=== PATIENT | male | born 1975 | race African-American/Black ===

== ENCOUNTER 2018-04-28 05:13 | Emergency (ER) | payer OTHER ==
[~2018-04-28] VITALS: Ht 170.2 cm; Wt 68.0 kg
[~2018-04-28 05:13] MED LIST: TRAZ-85 PO; UNABLE MC; ZIPR20CA2 PO
--- NOTE | 2018-04-28 05:44 | PHYS DOC ---
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 Patient was brought in by EMS who reports that staff at the assisted care facility where the patient resides due to his history of a traumatic brain injury, pushed the feeding tube back in place in their presence. History is limited from the patient due to his traumatic brain injury. Per EMS report, patient had been seen at earlier this evening also due to pulling out the tube. [] (SURESH SANCHEZ DO) Review of Systems Review of Systems Unable to obtain due to patient's history of traumatic brain injury All other systems were reviewed and found to be within normal limits, except as documented in this note. (SURESH SANCHEZ DO) Current Medications Current Medications Current Medications Medications (Trade) Dose Ordered Sig/Moses Start Time Stop Time Status Last Admin Dose Admin Info (CONTRAST GIVEN -- Rx MONITORING) 1 each PRN DAILY PRN 04/28/18 06:00 04/30/18 05:59 Iohexol (Omnipaque 240 Mg/ml) 20 ml 1X ONCE 04/28/18 06:30 04/28/18 06:31 DC 04/28/18 06:04 20 ML Iohexol (Omnipaque 300 Mg/ml) 50 ml 1X ONCE 04/28/18 08:00 04/28/18 08:01 DC (SACHA TOWNSEND MD) Allergies Allergies Allergies Coded Allergies Type Severity Reaction Last Updated Verified chlorpromazine Allergy Intermediate unknown 03/31/14 Yes divalproex sodium Allergy Intermediate unknown 03/31/14 Yes fluphenazine Allergy Intermediate abd pain 03/31/14 No haloperidol Allergy Intermediate "passout" 03/31/14 No (SACHA TOWNSEND MD) Physical Exam Physical Exam Constitutional: Well developed, well nourished, no acute distress, non-toxic appearance. [] HENT: Normocephalic, atraumatic, bilateral external ears normal, oropharynx moist, no oral exudates, nose normal. [] Eyes: PERRLA, EOMI, conjunctiva normal, no discharge. [] Neck: Normal range of motion, no tenderness, supple, no stridor. [] Cardiovascular:Heart rate regular rhythm, no murmur [] Lungs & Thorax: Bilateral breath sounds clear to auscultation [] Abdomen: Bowel sounds normal, soft, no tenderness, no masses, no pulsatile masses. Feeding tube appears to be in place, no bleeding [] Skin: Warm, dry, no erythema, no rash. [] Back: No tenderness, no CVA tenderness. [] Extremities: No tenderness, no cyanosis, no clubbing, ROM intact, no edema. [] Neurologic: Awake and Alert, normal motor function, normal sensory function, no focal deficits noted. [] Psychologic: Affect normal, judgement unable to assess, mood normal. [] (SURESH SANCHEZ DO) Current Patient Data Vital Signs Vital Signs Date Time Temp Pulse Resp B/P (MAP) Pulse Ox O2 Delivery O2 Flow Rate FiO2 04/28/18 05:30 98.2 83 18 117/79 (92) 97 Room Air 98.2 (SACHA TOWNSEND MD) EKG EKG [] (SURESH SANCHEZ DO) Radiology/Procedures Radiology/Procedures [] (SURESH SANCHEZ DO) Course & Med Decision Making Course & Med Decision Making Pertinent Labs and Imaging studies reviewed. (See chart for details) D course: Patient arrived, was placed in bed, in tolerated exam well. Patient had omni placed through the feeding tube. At the time of this dictation he is awaiting radiologist evaluation of the imaging to ensure feeding tube is in the correct position. Patient care endorsed to the daytime emergency physician at 6 AM.[] (SURESH SANCHEZ DO) Course & Med Decision Making lenaghan: s/o 6 am i eval'd the tube, it was hanging out. i replaced it with a 20fr , easy placement ovearll pt did tolerate with some difficulty. xray confirmed placement. d/c back to snf IMPRESSION: Satisfactory position of the gastrostomy tube extending into the distal aspect of the stomach. Electronically signed by: Jignesh Concepcion MD (04/28/2018 8:11 AM) [facility] DICTATED and SIGNED BY: JIGNESH CONCEPCION MD DATE: 04/28/18 0808 (SACHA TOWNSEND MD) Brian Disclaimer Dragon Disclaimer This electronic medical record was generated, in whole or in part, using a voice recognition dictation system. (SURESH SANCHEZ DO) Departure Departure Referrals: NO PCP (PCP) SURESH SANCHEZ DO Apr 28, 2018 05:44 SACHA TOWNSEND MD Apr 28, 2018 08:32
[2018-04-28] MEDS ORDERED: CONTRAST GIVEN. MC PRN (06:00)
[2018-04-28] MEDS ORDERED: IOHEXOL 240 MG/ML 50ML VIAL. PO ONE (06:30)
--- NOTE | 2018-04-28 07:53 | RAD ---
Portable abdomen, 04/28/2018, 5:37 AM: HISTORY: Check gastrostomy tube placement A supine view of the abdomen was obtained following injection of 50 cc of Omnipaque 240 into a gastrostomy tube as requested. There is a tube overlying the left midabdomen which reportedly represents a gastrostomy tube. There is contrast material in the stomach suggesting that the tip of the tube extends into the stomach. There is more dense contrast within the colon. This most likely represents residual contrast from a previous diagnostic study. Clinical correlation is suggested. The possibility of transcolonic placement of the gastrostomy tube cannot be excluded. CT scanning may be useful for further evaluation, if clinically indicated. Electronically signed by: Jignesh Olmos MD (04/28/2018 7:51 AM) [facility]
[2018-04-28] MEDS ORDERED: IOHEXOL 300 MG/ML 50 ML VIAL. PO ONE (08:00)
--- NOTE | 2018-04-28 08:14 | RAD ---
KUB x2, 04/28/2018, 7:43 AM: HISTORY: Check replaced gastrostomy tube A KUB was obtained prior to and following injection of 50 cc of nonionic contrast into the patient's gastrostomy tube. On the preliminary images there is residual contrast in the colon and small bowel from previous examinations. The current injection demonstrates the distal end of the gastrostomy tube lying within the distal stomach. Contrast extends into the small bowel. No contrast leakage is seen. There is no evidence of obstruction. IMPRESSION: Satisfactory position of the gastrostomy tube extending into the distal aspect of the stomach. Electronically signed by: Jignesh Olmos MD (04/28/2018 8:11 AM) [facility]
[2018-04-28 09:00] VITALS: BP 114/77
== END 2018-04-28 09:16 | disposition home or self-care (01) ==
LOC: ER 05:13
DX: K94.23 Gastrostomy malfunction (principal); F20.9 Schizophrenia, unspecified; Z88.8 Allergy status to other drugs, medicaments and biological substances; Y83.8 Other surgical procedures as the cause of abnormal reaction of the patient, or of later complication, without mention of misadventure at the time of the procedure; Y92.89 Other specified places as the place of occurrence of the external cause
CPT/HCPCS: 43762; 74018; 99284; Q9966

== ENCOUNTER 2019-05-29 14:45 | Emergency (ER) | payer OTHER ==
[~2019-05-29] VITALS: Ht 177.8 cm; Wt 77.0 kg
[~2019-05-29 14:45] MED LIST changes: +TRAZ-118 PO; -TRAZ-85 PO
--- NOTE | 2019-05-29 15:12 | PHYS DOC ---
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 Patient was sent from his facility as he supposedly pulled out his G-tube. G-tube is in place on assessment. Patient is nonverbal so is difficult to assess the patient. Review of Systems Review of Systems Unable to obtain due to patient condition. Allergies Allergies Allergies Coded Allergies Type Severity Reaction Last Updated Verified chlorpromazine Allergy Intermediate unknown 03/31/14 Yes divalproex sodium Allergy Intermediate unknown 03/31/14 Yes fluphenazine Allergy Intermediate abd pain 03/31/14 No haloperidol Allergy Intermediate "passout" 03/31/14 No Physical Exam Physical Exam Constitutional: Well developed, well nourished, no acute distress, non-toxic appearance. [] Abdomen:G-tube in place. Psychologic: Affect normal, judgement normal, mood normal. [] Current Patient Data Vital Signs Vital Signs Date Time Temp Pulse Resp B/P (MAP) Pulse Ox O2 Delivery O2 Flow Rate FiO2 05/29/19 14:45 98.2 20 112/84 (93) 94 Room Air 98.2 EKG EKG [] Radiology/Procedures Radiology/Procedures [] Course & Med Decision Making Course & Med Decision Making Pertinent Labs and Imaging studies reviewed. (See chart for details) We will have nursing evaluate G-tube by trying to use the G-tube if G-tube is not working will replace. Nursing was able to flush tube with no issues. [facility] stated that they had placed a Theodore in place of the G-tube that he pulled out it is working just fine. Will have patient follow-up outpatient to have a new G-tube placed Brian Disclaimer Brian Disclaimer This electronic medical record was generated, in whole or in part, using a voice recognition dictation system. Departure Departure Impression: Primary Impression: Gastrostomy tube in place Disposition: 01 HOME, SELF-CARE Condition: STABLE Referrals: NO PCP (PCP) Patient Instructions: Gastrostomy Tube, Adult Additional Instructions: Thank you for visiting [facility]. We appreciate you trusting us with your care. If any additional problems come up don't hesitate to return to visit us. Please follow up with your primary care provider so they can plan additional care if needed and know about the problem that you had. If symptoms worsen come back to the Emergency Department. Any concerning symptoms that start such as chest pain, shortness of air, weakness or numbness on one side of the body, running high fevers or any other concerning symptoms return to the ER. Please follow-up with GI to have G-tube replaced SIRI WATKINS APRN May 29, 2019 15:12
[2019-05-29 15:30] VITALS: BP 119/77
== END 2019-05-29 15:40 | disposition home or self-care (01) ==
LOC: ER 14:45
DX: K94.23 Gastrostomy malfunction (principal); F20.9 Schizophrenia, unspecified; Z88.8 Allergy status to other drugs, medicaments and biological substances
CPT/HCPCS: 99281; 99284

== ENCOUNTER 2019-11-29 08:47 | Emergency (ER) | payer OTHER ==
[~2019-11-29] VITALS: Ht 170.2 cm; Wt 75.0 kg
[2019-11-29] MEDS ORDERED: LIDOCAINE 2% JELLY 6ML IN APPLICATOR. MM ONE (09:15)
[2019-11-29] MEDS ORDERED: IOHEXOL 240 MG/ML 50ML VIAL. PO ONE (09:15)
[2019-11-29] MEDS ORDERED: CONTRAST GIVEN. MC PRN ×2 (09:30→13:00)
[2019-11-29] MEDS ORDERED: fentaNYL PF VIAL 100 MCG/2 ML VIAL IVP ONE (11:00)
--- NOTE | 2019-11-29 11:46 | RAD ---
EXAM: KUB 11/29/2019 9:10 AM CLINICAL INDICATION: Confirm G-tube placement. COMPARISON: KUB 04/28/2018 TECHNIQUE: AP supine and view of the abdomen obtained after injecting 50 mL Omnipaque 240 via G-tube. FINDINGS: Contrast injected through the patient's gastrostomy tube is seen within the stomach, confirming intragastric position of the tube. Bowel gas pattern is nonspecific and nonobstructive. Lung bases are clear. IMPRESSION: Appropriate position of gastrostomy tube. Electronically signed by: Vanessa Correia MD (11/29/2019 11:43 AM) [id number]
--- NOTE | 2019-11-29 12:01 | PHYS DOC ---
Past Medical History Past Medical History: Anxiety, Depression, Seizure, Schizophrenia Additional Past Medical Histor: insomnia, TBI, encephlopathy,hemiplegia,contractures,TONIO Past Surgical History: Other Additional Past Surgical Histo: left side/shoulder/chest, FEEDING TUBE Smoking Status: Never Smoker Alcohol Use: None Drug Use: None General Adult EDM: Chief Complaint: GTUBE REPLACEMENT/MALFUNCTION HPI: HPI: 44-year-old male past medical history of TBI, patient nonverbal, dysphonia, diabetes with G-tube, [facility], unwitnessed removal of patient's G-tube. Patient denies pulling his G-tube. She was seen in May of this year for similar complication of this G-tube. Patient is able to answer questions and nod his head. Nods his head not having any abdominal pain. ROS: Limited to medical condition. Pts' son called-pt know to pull out his gtube. Heart Score: Risk Factors: Risk Factors: DM, Current or recent (<one month) smoker, HTN, HLP, family hi story of CAD, obesity. Risk Scores: Score 0 - 3: 2.5% MACE over next 6 weeks - Discharge Home Score 4 - 6: 20.3% MACE over next 6 weeks - Admit for Clinical Observation Score 7 - 10: 72.7% MACE over next 6 weeks - Early Invasive Strategies Current Medications: Current Medications Medications (Trade) Dose Ordered Sig/Moses Start Time Stop Time Status Last Admin Dose Admin Fentanyl Citrate (Fentanyl 2ml Vial) 100 mcg 1X ONCE 11/29/19 11:00 11/29/19 11:01 DC 11/29/19 11:07 100 MCG Info (CONTRAST GIVEN -- Rx MONITORING) 1 each PRN DAILY PRN 11/29/19 09:30 12/01/19 09:29 Iohexol (Omnipaque 240 Mg/ml) 50 ml 1X ONCE 11/29/19 09:15 11/29/19 09:27 DC 11/29/19 09:15 50 ML Lidocaine HCl (Glydo (Lidocaine) Jelly) 1 haim 1X ONCE 11/29/19 09:15 11/29/19 09:16 DC 11/29/19 09:55 1 HAIM Allergies: Allergies: Allergies Coded Allergies Type Severity Reaction Last Updated Verified chlorpromazine Allergy Intermediate unknown 03/31/14 Yes divalproex sodium Allergy Intermediate unknown 03/31/14 Yes fluphenazine Allergy Intermediate abd pain 03/31/14 No haloperidol Allergy Intermediate "passout" 03/31/14 No Physical Exam: PE: Constitutional: no acute distress, non-toxic appearance. [] HENT: Normocephalic, atraumatic, Eyes: EOMI, conjunctiva normal, no discharge. [] Neck: Normal range of motion, supple, ] Cardiovascular:Heart rate regular rhythm, no murmur [] Lungs & Thorax: Bilateral breath sounds clear to auscultation [] Abdomen: Bowel sounds normal, soft, only tender when manipulating gtube, no masses, no pulsatile masses. [] Skin: Warm, dry, no erythema, no rash. [] Back: No tenderness, no CVA tenderness. [] Extremities: No tenderness, no cyanosis, no clubbing, ROM intact, no edema. [] Neurologic: Alert, nonverbal, nods head yes/no, Current Patient Data: Vital Signs: Vital Signs Date Time Temp Pulse Resp B/P (MAP) Pulse Ox O2 Delivery O2 Flow Rate FiO2 11/29/19 11:07 20 93 Room Air 11/29/19 10:30 72 113/71 (85) 11/29/19 09:00 97.5 97.5 EKG: EKG: [] Radiology/Procedures: Radiology/Procedures: IMAGING REPORT Signed PATIENT: DAISY CALDERÓN ACCOUNT: [id number] : 1975 LOCATION: ER AGE: 44 SEX: M EXAM STATUS: REG ER ORD. PHYSICIAN: GIANNA SNYDER DO REASON: confirm Gtube placement with contrast OMNIPAQUE 240 50cc injected PROCEDURE: KUB EXAM: KUB 11/29/2019 9:10 AM CLINICAL INDICATION: Confirm G-tube placement. COMPARISON: KUB 04/28/2018 TECHNIQUE: AP supine and view of the abdomen obtained after injecting 50 mL Omnipaque 240 via G-tube. FINDINGS: Contrast injected through the patient's gastrostomy tube is seen within the stomach, confirming intragastric position of the tube. Bowel gas pattern is nonspecific and nonobstructive. Lung bases are clear. IMPRESSION: Appropriate position of gastrostomy tube. Electronically signed by: Vanessa Correia MD (11/29/2019 11:43 AM) [id number] DICTATED and SIGNED BY: VANESSA CORREIA MD DATE: 11/29/19 1143 IMAGING REPORT Signed PATIENT: DAISY CALDERÓN ACCOUNT: [id number] : 1975 LOCATION: ER AGE: 44 SEX: M EXAM STATUS: REG ER ORD. PHYSICIAN: GIANNA SNYDER DO REASON: bleeding a g-tube site PROCEDURE: CT ABD PELV W/ IV CONTRST ONLY CT abdomen and pelvis with contrast History: Bleeding at G tube site Technique: After the administration of intravenous contrast, CT imaging was performed of the abdomen and pelvis. Oral contrast was given. Multiplanar images are reviewed. Exposure: One or more of the following individualized dose reduction techniques were utilized for this examination: 1. Automated exposure control 2. Adjustment of the mA and/or kV according to patient size 3. Use of iterative reconstruction technique. Comparison: None Findings: There is some artifact created by patient's arms near sides. There is gynecomastia bilaterally. There is no pleural fluid at the visualized lung bases, mild atelectasis present. It should be noted the entirety of the dome of liver was not included. There is no significant abnormality of the visualized liver, spleen, pancreas, adrenal glands. Both kidneys enhance without hydronephrosis. Gallbladder is present without obvious intraluminal abnormality by CT. There is percutaneous gastrostomy. There is some mild density about the catheter in the subcutaneous fat, no focal fluid collection about the catheter in the stomach. Small bowel is not dilated. There is no free fluid or free air. Normal caliber appendix is visualized without adjacent inflammatory change. There is mostly gas dilatation of the rectum up to 7.9 cm, some stool present. Otherwise the colon is not dilated. There is appearance of wall prominence of the stomach. There is nonspecific mild wall prominence of the anterior aspect of the urinary bladder. Impression: 1. There is some density about the gastrostomy in the subcutaneous fat which could be site of bleeding as per history, no abnormal fluid collection/hematoma in the abdomen about the stomach. 2. There is gas dilatation of the rectum. There is appearance of wall prominence of the stomach, pathologic wall change such as from gastritis difficult to exclude although may be due to incomplete distention. 3. There is bilateral gynecomastia. Electronically signed by: Carrie Garcia MD (11/29/2019 1:29 PM) [id number] DICTATED and SIGNED BY: CARRIE GARCIA MD DATE: 11/29/19 1329 Course & Med Decision Making: Course & Med Decision Making Pertinent Labs and Imaging studies reviewed. (See chart for details) Concern for G-tube dislodgment. Patient hemodynamically stable, afebrile. Pt initially swatted at myself when attempted to place Gtube with urogel. Pt given fentanyl and tolerated insertion. Has no underlying abdominal pain or tenderness with physical exam. G-tube was easily inserted, 3cc inflated. Xray video production assistant with appropriate positioning. CT imaging performed due to scant bleeding from Gtube site, likely related to frequent pulling of tube while balloon is inflated (no leak in ballon prior to re-insertion). Encouraged urgent outpatient follow-up with PMD. Life-threatening processes were considered but are low suspicion at this time, given history and physical exam. Pt was educated on all prescription medications and adverse effects. All patient's questions were answered and pt was stable at time of discharge. Differential includes aortic dissection, aortic aneurysm, acute coronary syndrome, surgical abdomen (appendicitis, cholecystitis, ischemic bowel, strangulated hernia, etc), bowel obstruction or volvulus, bladder outlet obstruction, gastrointestinal bleeding, inflammatory bowel disease, peptic ulcer disease, sepsis, diverticular disease, ureterolithiasis, nephrolithiasis, testicular torsion, I spoken with the patient and her caregivers. I explained the patient's condition, diagnoses and treatment plan based on the information available to me at this time. I have answered the patient and her caregiver's questions and addressed any concerns. The patient and her caregivers have a good understanding of patient's diagnosis, condition and treatment plan as can be expected at this point. Vital signs have been stable. Patient's condition is stable and appropriate for discharge from the emergency department. Patient will pursue further outpatient evaluation with primary care physician or other designated or consulting physician as outlined in the discharge instructions. The patient and/or caregivers are agreeable to this plan of care and follow-up instructions have been explained in detail. The patient and/or caregivers have received these instructions in written form and have expressed an understanding of the discharge instructions. The patient and/or caregivers are aware that any significant change of condition or worsening of symptoms should prompt immediate return to this or the closest emergency department or call to 911. Brian Disclaimer: Dragon Disclaimer: This electronic medical record was generated, in whole or in part, using a voice recognition dictation system. Departure Departure Impression: Primary Impression: Complaint associated with gastric tube Additional Impression: Gastrostomy tube in place Disposition: 01 HOME, SELF-CARE Condition: STABLE Referrals: NON,STAFF (PCP) Patient Instructions: Gastric Tube Replacement Justicifation of Admission Dx: Justifications for Admission: Justification of Admission Dx: N/A GIANNA KENYON DO Nov 29, 2019 12:01
[2019-11-29 12:22] LABS: BASO # 0.1 x10^3/uL (0.0-0.2); BASO % 1 % (0-3); EOS # 0.3 x10^3/uL (0.0-0.7); EOS % 3 % (0-3); HEMATOCRIT 43.4 % (39.0-53.0); HEMOGLOBIN 14.8 g/dL (13.0-17.5); LYMPH # 3.2 x10^3/uL (1.0-4.8); LYMPH % 34 % (24-48); MEAN CORPUSCULAR HEMOGLOBIN 30 pg (25-35); MEAN CORPUSCULAR HGB CONC 34 g/dL (31-37); MEAN CORPUSCULAR VOLUME 89 fL (79-100); MONO # 0.6 x10^3/uL (0.0-1.1); MONO % 7 % (0-9); NEUT # 5.3 x10^3/uL (1.8-7.7); NEUT % 55 % (31-73); PLATELET COUNT 247 x10^3/uL (140-400); RED BLOOD COUNT 4.85 x10^6/uL (4.30-5.70); RED CELL DISTRIBUTION WIDTH 13.4 % (11.5-14.5); WHITE BLOOD COUNT 9.5 x10^3/uL (4.0-11.0)
[2019-11-29 12:29] LABS: CALCIUM 9.2 mg/dL (8.5-10.1); CREATININE 0.5 mg/dL (0.7-1.3); GFR 220.6
[2019-11-29 12:33] LABS: POTASSIUM 4.6 mmol/L (3.5-5.1)
[2019-11-29] MEDS ORDERED: IOHEXOL 300 MG/ML 100ML VIAL. IV ONE (13:00)
--- NOTE | 2019-11-29 13:32 | RAD ---
CT abdomen and pelvis with contrast History: Bleeding at G tube site Technique: After the administration of intravenous contrast, CT imaging was performed of the abdomen and pelvis. Oral contrast was given. Multiplanar images are reviewed. Exposure: One or more of the following individualized dose reduction techniques were utilized for this examination: 1. Automated exposure control 2. Adjustment of the mA and/or kV according to patient size 3. Use of iterative reconstruction technique. Comparison: None Findings: There is some artifact created by patient's arms near sides. There is gynecomastia bilaterally. There is no pleural fluid at the visualized lung bases, mild atelectasis present. It should be noted the entirety of the dome of liver was not included. There is no significant abnormality of the visualized liver, spleen, pancreas, adrenal glands. Both kidneys enhance without hydronephrosis. Gallbladder is present without obvious intraluminal abnormality by CT. There is percutaneous gastrostomy. There is some mild density about the catheter in the subcutaneous fat, no focal fluid collection about the catheter in the stomach. Small bowel is not dilated. There is no free fluid or free air. Normal caliber appendix is visualized without adjacent inflammatory change. There is mostly gas dilatation of the rectum up to 7.9 cm, some stool present. Otherwise the colon is not dilated. There is appearance of wall prominence of the stomach. There is nonspecific mild wall prominence of the anterior aspect of the urinary bladder. Impression: 1. There is some density about the gastrostomy in the subcutaneous fat which could be site of bleeding as per history, no abnormal fluid collection/hematoma in the abdomen about the stomach. 2. There is gas dilatation of the rectum. There is appearance of wall prominence of the stomach, pathologic wall change such as from gastritis difficult to exclude although may be due to incomplete distention. 3. There is bilateral gynecomastia. Electronically signed by: Alonzo Huynh MD (11/29/2019 1:29 PM) [id number]
[2019-11-29 14:14] LABS: PLT ESTIMATE ADEQUATE (ADEQUATE)
[2019-11-29 15:02] VITALS: BP 107/78
== END 2019-11-29 15:25 | disposition home or self-care (01) ==
LOC: ER 08:47
DX: K94.23 Gastrostomy malfunction (principal); F41.9 Anxiety disorder, unspecified; F32.9 Major depressive disorder, single episode, unspecified; F20.9 Schizophrenia, unspecified; Z87.820 Personal history of traumatic brain injury; Z98.890 Other specified postprocedural states
CPT/HCPCS: 36415; 43762; 74018; 74177; 80048; 85025; 96374; 99285; J3010; Q9966; Q9967

== ENCOUNTER 2019-11-30 05:05 | Emergency (ER) | payer OTHER ==
[~2019-11-30] VITALS: Ht 175.3 cm; Wt 72.7 kg
--- NOTE | 2019-11-30 05:32 | PHYS DOC ---
Past Medical History Past Medical History: Anxiety, Bipolar, Depression, Seizure, Schizophrenia Additional Past Medical Histor: insomnia, TBI, encephlopathy,hemiplegia,contractures,TONIO, CHRONIC RESP FAIL Past Surgical History: Other Additional Past Surgical Histo: left side/shoulder/chest, FEEDING TUBE Smoking Status: Never Smoker Alcohol Use: None Drug Use: None General Adult EDM: Chief Complaint: GTUBE REPLACEMENT/MALFUNCTION HPI: HPI: Patient is a 44 year old male who presents with a dislodged G-tube. Patient wa s here yesterday for similar complaints. Patient is nonverbal therefore history review of systems and physical are limited due to this. Review of Systems: Review of Systems: Review of systems unobtainable due to the patient's altered mental status and nonverbal status Heart Score: Risk Factors: Risk Factors: DM, Current or recent (<one month) smoker, HTN, HLP, family history of CAD, obesity. Risk Scores: Score 0 - 3: 2.5% MACE over next 6 weeks - Discharge Home Score 4 - 6: 20.3% MACE over next 6 weeks - Admit for Clinical Observation Score 7 - 10: 72.7% MACE over next 6 weeks - Early Invasive Strategies Allergies: Allergies: Allergies Coded Allergies Type Severity Reaction Last Updated Verified chlorpromazine Allergy Intermediate unknown 03/31/14 Yes divalproex sodium Allergy Intermediate unknown 03/31/14 Yes fluphenazine Allergy Intermediate abd pain 03/31/14 No haloperidol Allergy Intermediate "passout" 03/31/14 No Physical Exam: PE: Constitutional: Somewhat frail alert follow simple commands HENT: Normocephalic, atraumatic, bilateral external ears normal, NO TRISMUS, nose normal. [] Eyes: PERRLA, EOMI, conjunctiva normal, no discharge. [] Neck: Normal range of motion, no tenderness, supple, no stridor. [] Cardiovascular:Heart rate regular rhythm, peripheral pulses intact, cap refill brisk Lungs & Thorax: Bilateral breath sounds clear, no respiratory distress Abdomen: Soft nontender ostomy site patent in the left upper quadrant Skin: Warm, dry, no erythema, no rash. [] Back: No tenderness, no CVA tenderness. [] Extremities: No tenderness, no cyanosis, no clubbing, ROM intact, no edema. [] Neurologic: Alert and oriented X 3, normal motor function, normal sensory function, no focal deficits noted. [] Psychologic: Affect normal, judgement normal, mood normal. [] EKG: EKG: [] Radiology/Procedures: Radiology/Procedures: [][facility] [address] [place] [address] IMAGING REPORT Signed PATIENT: DAISY CALDERÓN ACCOUNT: [id number] : 1975 LOCATION: ER AGE: 44 SEX: M EXAM STATUS: REG ER ORD. PHYSICIAN: PONCE HOLLEY MD REASON: W/ORAL CONTRAST PROCEDURE: KUB Examination: Frontal view of the abdomen HISTORY: History of pain COMPARISON: 11/29/2019 Findings: Contrast is identified in the stomach and in the rectum. Unremarkable bowel gas pattern. Gastrostomy tube is identified. IMPRESSION: Unremarkable bowel gas pattern. Electronically signed by: Yair Arnold MD (11/30/2019 5:46 AM) [id number] DICTATED and SIGNED BY: YAIR ARNOLD MD DATE: 11/30/19 0546 16 [place]araguan feeding tube was inserted into the stoma and 4 cc of saline was used to inflate the balloon. No complications patient tolerated well Course & Med Decision Making: Course & Med Decision Making Pertinent Labs and Imaging studies reviewed. (See chart for details) [] 44-year-old male presents with a G-tube that dislodged. The tube went back easily. X-ray confirms placement. Patient stable for discharge Dragon Disclaimer: Brian Disclaimer: This electronic medical record was generated, in whole or in part, using a voice recognition dictation system. Departure Departure Impression: Primary Impression: Gastrojejunostomy tube dislodgement Disposition: HOME, SELF-CARE Condition: STABLE Referrals: NO PCP (PCP) PCP NEEDED Patient Instructions: Gastric Tube Replacement Additional Instructions: EMERGENCY DEPARTMENT GENERAL DISCHARGE INSTRUCTIONS THANK YOU for coming to [facility] Emergency Department (ED) today and trusting us with your care. We trust that you had a positive experience in our Emergency Department. If you wish to speak to the department Management you can contact the whey department operator at . YOUR FOLLOW UP INSTRUCTIONS ARE FOLLOWS: Do you have a private doctor? If you do not have a private doctor, please ask for a resource list of physicians or clinics that may be able to assist you with follow up care. The Emergency Physician has interpreted your x-rays. The X-ray specialist will also review them. If there is a change in the findings you will be notified in 48 hours when at all possible. A lab test or lab culture may have been done, your results will be reviewed and you will be notified if you need a change in treatment. ADDITIONAL INSTRUCTIONS AND INFORMATION Your care today has been supervised by a physician who is specially trained in emergency care. Many problems require more than one evaluation for a complete diagnosis and treatment. We recommend that you schedule your follow up appointment as recommended to ensure complete treatment of your illness or injury. If you are unable to obtain follow up care and continue to have a problem, or if your condition worsens we recommend that you return to the ED. We are not able to safely determine your condition over the phone nor are we able to give sound medical advice over the phone. For these safety reasons, if you call for medical advice we will ask you to come to the ED for further evaluation If you have any questions regarding these discharge instructions please call the ED at . SAFETY INFORMATION In the interest of safety, wellness, and injury prevention; we encourage you to wear your seatbelt, if you smoke; quit smoking, and we encourage your family to use protective helmet for bicycling and other sporting events that present an increased risk for head injury. IF YOUR SYMPTOMS WORSEN OR NEW SYMPTOMS DEVELOP, OR YOU HAVE CONCERNS ABOUT YOUR CONDITION; OR IF YOUR CONDITION WORSENS WHILE YOU ARE WAITING FOR YOUR FOLLOW UP APPO INTMENT; EITHER CONTACT YOUR PRIMARY CARE DOCTOR, THE PHYSICIAN WHOSE NAME AND NUMBER YOU WERE GIVEN, OR RETURN TO THE ED IMMEDIATELY. Justicifation of Admission Dx: Justifications for Admission: Justification of Admission Dx: N/A PONCE HOLLEY MD Nov 30, 2019 05:31
--- NOTE | 2019-11-30 05:48 | RAD ---
Examination: Frontal view of the abdomen HISTORY: History of pain COMPARISON: 11/29/2019 Findings: Contrast is identified in the stomach and in the rectum. Unremarkable bowel gas pattern. Gastrostomy tube is identified. IMPRESSION: Unremarkable bowel gas pattern. Electronically signed by: Yair Arnold MD (11/30/2019 5:46 AM) [id number]
[2019-11-30 08:06] VITALS: BP 110/65
== END 2019-11-30 08:45 | disposition home or self-care (01) ==
LOC: ER 05:05
DX: K94.23 Gastrostomy malfunction (principal); F20.9 Schizophrenia, unspecified; Z87.820 Personal history of traumatic brain injury; R41.82 Altered mental status, unspecified; F31.9 Bipolar disorder, unspecified; Z88.8 Allergy status to other drugs, medicaments and biological substances; Y83.8 Other surgical procedures as the cause of abnormal reaction of the patient, or of later complication, without mention of misadventure at the time of the procedure; Y92.89 Other specified places as the place of occurrence of the external cause
CPT/HCPCS: 43762; 74018; 99284; 99285

== ENCOUNTER 2020-02-16 22:45 | Emergency (ER) | payer OTHER ==
[~2020-02-16] VITALS: Ht 182.9 cm; Wt 84.1 kg
[2020-02-16] MEDS ORDERED: CONTRAST GIVEN. MC PRN (23:45)
--- NOTE | 2020-02-16 23:58 | PHYS DOC ---
Past Medical History Past Medical History: Anxiety, Bipolar, Depression, Seizure, Schizophrenia Additional Past Medical Histor: insomnia, TBI, encephlopathy,hemiplegia,contractures,TONIO, CHRONIC RESP FAIL Past Medical History Limited secondary to TBI/nonverbal Past Surgical History: Other Additional Past Surgical Histo: left side/shoulder/chest, FEEDING TUBE Past Surgical History Limited secondary to TBI/nonverbal Smoking Status: Never Smoker Alcohol Use: None Drug Use: None Social History Limited secondary to TBI/nonverbal General Adult EDM: Chief Complaint: GTUBE REPLACEMENT/MALFUNCTION HPI: HPI: Patient is a 44 year old male who presents with Gtube replacement. Patient pulled out his Gtube at 15:30 so the longterm facility placed a victoria. When they checked later the victoria was out and it was unsure how long it was closed. He normally has a 16 Thai Gtube placed. History obtained per report from EMS due to patient being non-verbal. Review of Systems: Review of Systems: Unable to obtain due to patient being non-verbal. Current Medications: Current Medications Medications (Trade) Dose Ordered Sig/Moses Start Time Stop Time Status Last Admin Dose Admin Info (CONTRAST GIVEN -- Rx MONITORING) 1 each PRN DAILY PRN 02/16/20 23:45 02/18/20 23:44 Iohexol (Omnipaque 300 Mg/ml) 50 ml 1X ONCE 02/17/20 00:15 02/17/20 00:16 Allergies: Allergies: Allergies Coded Allergies Type Severity Reaction Last Updated Verified chlorpromazine Allergy Intermediate unknown 03/31/14 Yes divalproex sodium Allergy Intermediate unknown 03/31/14 Yes fluphenazine Allergy Intermediate abd pain 03/31/14 No haloperidol Allergy Intermediate "passout" 03/31/14 No Physical Exam: PE: Constitutional: Well developed, well nourished, no acute distress, non-toxic appearance HENT: Normocephalic, atraumatic Eyes: PERRL, conjunctiva normal, no discharge Neck: Decreased ROM to right, no tenderness, supple Lungs & Thorax: No respiratory distress, equal chest rise and fall Abdomen: Soft, no tenderness, PEG tube insertion site on left abdomen, large horizontal scar across abdomen Skin: Warm, dry, no erythema, scar as noted above, multiple scars present bilaterally on LE Extremities: No edema, 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 Instructions: / History: . COMPARISON: None. TECHNIQUE: Supine view of the abdomen was obtained. FINDINGS: Nonobstructive bowel gas pattern. No free air on this limited supine image. Moderate colonic stool burden. IMPRESSION: Contrast administered via the patient's PEG tube is seen in the stomach and proximal small bowel. Electronically signed by: Alonzo Rossi MD (02/17/2020 12:33 AM) [facility] Course & Med Decision Making: Course & Med Decision Making Pertinent Imaging reviewed. (See chart for details) Patient is a 44 year old male who presents for placement of new PEG tube after accidental removal. Procedure as indicated in note. Placement confirmed on imaging. Patient stable for discharge back to retirement with outpatient follow-up with PCP/GI. Brian Disclaimer: Brian Disclaimer: This electronic medical record was generated, in whole or in part, using a voice recognition dictation system. Departure Departure Impression: Primary Impression: Encounter for feeding tube placement Disposition: 01 DC HOME SELF CARE/HOMELESS Condition: IMPROVED Referrals: NO PCP (PCP) Patient Instructions: Gastric Tube Replacement Additional Procedures Additional Procedures : Additional Procedures: gastric tube replacement Progress Implied consent. Time out performed. Hand hygiene utilized. Wound cleaned with ChloraPrep. Insertion of 18 Thai G tube with 20cc balloon under direct manipulation. Patient tolerated procedure well and without difficulty. X-ray imaging obtained to confirm proper placement. SIRI CHATTERJEE DO Feb 16, 2020 23:58
[2020-02-17] MEDS ORDERED: IOHEXOL 300 MG/ML 50 ML VIAL. INT CAT ONE (00:15)
--- NOTE | 2020-02-17 00:36 | RAD ---
KUB INDICATION: Reason: KUB with contrast bolus for PEG tube placement, OMNI 300, 50ML CATHER / Spl. Instructions: / History: . COMPARISON: None. TECHNIQUE: Supine view of the abdomen was obtained. FINDINGS: Nonobstructive bowel gas pattern. No free air on this limited supine image. Moderate colonic stool burden. IMPRESSION: Contrast administered via the patient's PEG tube is seen in the stomach and proximal small bowel. Electronically signed by: Alonzo Rossi MD (02/17/2020 12:33 AM) [facility]
[2020-02-17 00:49] VITALS: BP 109/73
== END 2020-02-17 01:45 | disposition home or self-care (01) ==
LOC: ER 22:45
DX: K94.23 Gastrostomy malfunction (principal); F31.9 Bipolar disorder, unspecified; F20.9 Schizophrenia, unspecified; Z87.820 Personal history of traumatic brain injury; Z88.8 Allergy status to other drugs, medicaments and biological substances; Y83.8 Other surgical procedures as the cause of abnormal reaction of the patient, or of later complication, without mention of misadventure at the time of the procedure; Y92.89 Other specified places as the place of occurrence of the external cause
CPT/HCPCS: 43762; 74018; 99285; Q9967

== ENCOUNTER 2020-09-28 19:48 | Inpatient (IN) | payer OTHER ==
[~2020-09-28] VITALS: Ht 177.8 cm; Wt 67.5 kg
--- NOTE | 2020-09-28 20:13 | PHYS DOC ---
Past Medical History Past Medical History: Anxiety, Bipolar, Depression, Seizure, Schizophrenia Additional Past Medical Histor: insomnia, TBI, encephlopathy,hemiplegia,contractures,TONIO, CHRONIC RESP FAIL Past Surgical History: Other Additional Past Surgical Histo: left side/shoulder/chest, FEEDING TUBE Smoking Status: Never Smoker Alcohol Use: None Drug Use: None General Adult EDM: Chief Complaint: ABDOMINAL PAIN HPI: HPI: 44-year-old male past medical history significant for TBI with spastic hemiplegia, bedbound, presents to the ED after patient removed his G-tube at [place], unable to be replaced by nursing staff. EMR was reviewed and patient has had prior ED visits for the same complaint. Review of Systems: Review of Systems: Review of systems limited due to patient's limited medication ability/is nonverbal, nods head yes or no, Heart Score: C/O Chest Pain: No Risk Factors: Risk Factors: DM, Current or recent (<one month) smoker, HTN, HLP, family history of CAD, obesity. Risk Scores: Score 0 - 3: 2.5% MACE over next 6 weeks - Discharge Home Score 4 - 6: 20.3% MACE over next 6 weeks - Admit for Clinical Observation Score 7 - 10: 72.7% MACE over next 6 weeks - Early Invasive Strategies Allergies: Allergies: Allergies Coded Allergies Type Severity Reaction Last Updated Verified chlorpromazine Allergy Intermediate unknown 03/31/14 Yes divalproex sodium Allergy Intermediate unknown 03/31/14 Yes fluphenazine Allergy Intermediate abd pain 03/31/14 No haloperidol Allergy Intermediate "passout" 03/31/14 No Physical Exam: PE: Constitutional: nontoxic appearing, uses hands to communicate - puts fingers to his mouth and nods head yes when asked if he wants food HENT: Normocephalic, atraumatic, Eyes: EOMI, conjunctiva normal, no discharge. Neck: Normal range of motion, supple, Cardiovascular: S1/2 present, regular rhythm Lungs & Thorax: Speaking in full sentences, bilateral equal chest rise, no tachypnea or increased work of breathing Abdomen: soft at rest, significant voluntary guarding when attempting to replace 16 Sami tube, recent feeding? vs yellow/nonmalodorous material expressed for g-tube site, Skin: Warm, dry, no erythema, no rash, no increased warmth Back: No tenderness, no CVA tenderness. [] Extremities: No tenderness, no cyanosis, Neurologic: Alert, no focal deficits noted. [] Psychologic: Calm mood, normal affect EKG: EKG: [] Radiology/Procedures: Radiology/Procedures: []IMAGING REPORT Signed PATIENT: DAISY CALDERÓN ACCOUNT: [id number] : 1975 LOCATION: SOUTH AGE: 44 SEX: M EXAM STATUS: ADM IN ORD. PHYSICIAN: GIANNA SNYDER DO REASON: abd pain, unable to replace g-tube PROCEDURE: CT ABD PELV W/ IV CONTRST ONLY EXAMINATION: CT abdomen and pelvis with IV contrast. INDICATION:44 years, Male, abdominal pain, unable to replace G-tube. TECHNIQUE: Axial CT images of the abdomen and pelvis were obtained. Coronal and sagittal reformatted performed. COMPARISON: 11/29/2019. Exposure: One or more of the following individualized dose reduction techniques were utilized for this examination: 1. Automated exposure control 2. Adjustment of the mA and/or kV according to patient size 3. Use of iterative reconstruction technique. FINDINGS: LOWER CHEST: Subsegmental atelectasis in bibasilar lungs. ABDOMEN/PELVIS: Liver, spleen, pancreas, gallbladder and biliary ducts, adrenals and kidneys are unremarkable. No gastrostomy tube visualized. Tethering of the gastric body, towards abdominal wall musculature at the level of G-tube coarse. No bowel obstruction or wall thickening. Large amount of stool in the rectum. Appendix is normal. No pneumoperitoneum or ascites. Unremarkable abdominal vasculatures. No lymphadenopathy in the abdomen or pelvis by size criteria. Unremarkable urinary bladder and prostate. No suspicious pelvic masses. MUSCULOSKELETAL: No acute osseous process. IMPRESSION: 1. No acute abnormality in the abdomen or pelvis. 2. No gastrostomy tube visualized. Tethering of the gastric body towards abdominal wall musculature at the level of G-tube coarse, findings may relate to adhesion. Clinical correlation is advised. 3. Large amount of rectal stool burden. Electronically signed by: Bi Hi MD (09/28/2020 11:47 PM) [facility] DICTATED and SIGNED BY: BI HI MD DATE: 09/28/20 [id number] Course & Med Decision Making: Course & Med Decision Making Pertinent Labs and Imaging studies reviewed. (See chart for details) Concern for G-tube dislodgment, unable to replace with urojet and IM Dilaudid. Labs performed. CT imaging concerning for possible adhesions. Will admit for further medical management and GI consultation. I have spoken with the patient and/or caregivers. I have explained the patient's condition, diagnosis and treatment plan based on the information avail able to me at this time. I have answered the patient's and/or caregivers questions and answered any concerns. The patient and/or caregivers have as good an understanding of the patient's diagnosis, condition and treatment plan as can be expected at this point. The patient has been stabilized within the capability of the emergency department. The patient will be transported for further care and management or will be moved to an observation or inpatient service. I have communicated with the staff or medical practitioner taking over this patient's care. Brian Disclaimer: Dragbaljeet Disclaimer: This electronic medical record was generated, in whole or in part, using a voice recognition dictation system. Departure Departure Impression: Primary Impression: Gastrojejunostomy tube dislodgement Disposition: ADMITTED INPATIENT Admitting Physician: ROBIN (Dr. Garcia) Condition: STABLE Referrals: NO PCP (PCP) GIANNA SNYDER DO Sep 28, 2020 20:13
[2020-09-28] MEDS ORDERED: LIDOCAINE 2% JELLY 6ML IN APPLICATOR. MM ONE (20:30)
[2020-09-28] MEDS ORDERED: HYDROmorphone 2 MG/ML VIAL IM ONE (20:30)
[2020-09-28] MEDS ORDERED: IV NORMAL SALINE 1000ML BAG 1,000 ML IV ONE (21:30)
[2020-09-28 22:10] LABS: BASO # 0.1 x10^3/uL (0.0-0.2); BASO % 1 % (0-3); EOS # 0.3 x10^3/uL (0.0-0.7); EOS % 3 % (0-3); HEMATOCRIT 45.1 % (39.0-53.0); LYMPH # 2.8 x10^3/uL (1.0-4.8); LYMPH % 25 % (24-48); MEAN CORPUSCULAR HEMOGLOBIN 29 pg (25-35); MEAN CORPUSCULAR HGB CONC 33 g/dL (31-37); MEAN CORPUSCULAR VOLUME 88 fL (79-100); MONO # 0.8 x10^3/uL (0.0-1.1); MONO % 7 % (0-9); NEUT # 7.2 x10^3/uL (1.8-7.7); NEUT % 64 % (31-73); PLATELET COUNT 302 x10^3/uL (140-400); RED BLOOD COUNT 5.15 x10^6/uL (4.30-5.70); RED CELL DISTRIBUTION WIDTH 13.1 % (11.5-14.5); WHITE BLOOD COUNT 11.2 x10^3/uL (4.0-11.0)
[2020-09-28 22:23] LABS: CALCIUM 9.3 mg/dL (8.5-10.1); CREATININE 0.6 mg/dL (0.7-1.3); GFR 178.8; POTASSIUM 4.3 mmol/L (3.5-5.1)
[2020-09-28 22:29] LABS: ALBUMIN 3.3 g/dL (3.4-5.0); ALBUMIN/GLOBULIN RATIO 0.7 (1.0-1.7); TOTAL BILIRUBIN 0.2 mg/dL (0.2-1.0)
[2020-09-28] MEDS ORDERED: CONTRAST GIVEN. MC PRN (22:45)
[2020-09-28] MEDS ORDERED: IOHEXOL 300 MG/ML 100ML VIAL. IV ONE (23:00)
[2020-09-28 23:45] VITALS: BP 112/60
--- NOTE | 2020-09-28 23:50 | RAD ---
EXAMINATION: CT abdomen and pelvis with IV contrast. INDICATION:44 years, Male, abdominal pain, unable to replace G-tube. TECHNIQUE: Axial CT images of the abdomen and pelvis were obtained. Coronal and sagittal reformatted performed. COMPARISON: 11/29/2019. Exposure: One or more of the following individualized dose reduction techniques were utilized for thi s examination: 1. Automated exposure control 2. Adjustment of the mA and/or kV according to patient size 3. Use of iterative reconstruction technique. FINDINGS: LOWER CHEST: Subsegmental atelectasis in bibasilar lungs. ABDOMEN/PELVIS: Liver, spleen, pancreas, gallbladder and biliary ducts, adrenals and kidneys are unremarkable. No gas trostomy tube visualized. Tethering of the gastric body, towards abdominal wall musculature at the le mone of G-tube coarse. No bowel obstruction or wall thickening. Large amount of stool in the rectum. A ppendix is normal. No pneumoperitoneum or ascites. Unremarkable abdominal vasculatures. No lymphadeno danisha in the abdomen or pelvis by size criteria. Unremarkable urinary bladder and prostate. No suspic ious pelvic masses. MUSCULOSKELETAL: No acute osseous process. IMPRESSION: 1. No acute abnormality in the abdomen or pelvis. 2. No gastrostomy tube visualized. Tethering of the gastric body towards abdominal wall musculature a t the level of G-tube coarse, findings may relate to adhesion. Clinical correlation is advised. 3. Large amount of rectal stool burden. Electronically signed by: Natalee iH MD (09/28/2020 11:47 PM) [facility]
[2020-09-29 03:00] VITALS: BP 117/80
[2020-09-29] MEDS ORDERED: MIRT-34 PEG (05:51)
[2020-09-29] MEDS ORDERED: BACL20TA PEG (05:51)
[2020-09-29] MEDS ORDERED: RISP1TAB43 PEG (05:51)
[2020-09-29] MEDS ORDERED: FAMO20TA5 PEG (05:51)
[2020-09-29] MEDS ORDERED: SERT100T PEG (05:51)
[2020-09-29] MEDS ORDERED: LEVE100S8 PEG (05:51)
[2020-09-29 07:00] VITALS: BP 123/62
--- NOTE | 2020-09-29 07:50 | PDOC1 ---
History and Physical Date of Service: DOS: DATE: 09/29/20 TIME: 07:45 Chief Complaint: Chief Complain: ABD pain History of Present Illness: HPI: 44-year-old male with past medical history of anxiety, hemiplegia, depression, seizure, traumatic brain injury with right-sided contracture and status post G- tube placement. He presents to the ED after his G-tube was accidentally removed and it was and able to be replaced by the nursing staff. Patient is able to mouth and hand gesture some communication but is unable to describe what he wants. He denies any pain or bleeding from the gastric site. Denies fevers, nausea vomiting, abdominal pain, dysuria, diarrhea. I was able to communicate partially with him by using an alphabet list which she is able to point out with his left hand. He mainly just communicated why he cannot use his right hand. I expressed to him that he ultimately needs to continue with physical therapy in order to relax his contracture over time. Past Medical/Surgical History: PMH/PSH: Past Medical History: Anxiety, Bipolar, Depression, Seizure, Schizophrenia, insomnia, TBI, encephlopathy,hemiplegia,contractures,TONIO, CHRONIC RESP FAIL Past Surgical History: left side/shoulder/chest, FEEDING TUBE Allergies: Allergies: Coded Allergies: chlorpromazine (Verified Allergy, Intermediate, unknown, 03/31/14) divalproex sodium (Verified Allergy, Intermediate, unknown, 03/31/14) fluphenazine (Unverified Allergy, Intermediate, abd pain, 03/31/14) haloperidol (Unverified Allergy, Intermediate, "passout", 03/31/14) Family History: Family History: Reveiwed with no relevant findings Social History: Social History: Smoking Status: Never Smoker Alcohol Use: None Drug Use: None Current Medications: Current Medications Current Medications Hydromorphone HCl (Dilaudid) 1 mg 1X ONCE IM Last administered on 09/28/20at 20:31; Start 09/28/20 at 20:30; Stop 09/28/20 at 20:31; Status DC Lidocaine HCl (Glydo (Lidocaine) Jelly) 1 haim 1X ONCE MM Last administered on 09/28/20at 20:30; Start 09/28/20 at 20:30; Stop 09/28/20 at 20:31; Status DC Sodium Chloride 1,000 ml @ 1,000 mls/hr 1X ONCE IV ; Start 09/28/20 at 21:30; Stop 09/28/20 at 22:29; Status DC Iohexol (Omnipaque 300 Mg/ml) 75 ml 1X ONCE IV Last administered on 09/28/20at 23:23; Start 09/28/20 at 23:00; Stop 09/28/20 at 23:01; Status DC Info (CONTRAST GIVEN -- Rx MONITORING) 1 each PRN DAILY PRN MC SEE COMMENTS; Start 09/28/20 at 22:45; Stop 09/30/20 at 22:44 Active Scripts Active Reported Zoloft (Sertraline Hcl) 100 Mg Tablet 1 Tab PEG DAILY Risperdal (Risperidone) 1 Mg Tablet 1 Mg PEG BID Keppra (Levetiracetam) 100 Mg/1 Ml Solution 5 Ml PEG BID 30 Days Remeron (Mirtazapine) 30 Mg Tablet 1 Tab PEG QHS Famotidine 20 Mg Tablet 20 Mg PEG DAILY Baclofen 20 Mg Tablet 20 Mg PEG QID Trazodone Hcl 50 Mg Tablet 50 Mg PO HS Geodon (Ziprasidone Hcl) 20 Mg Capsule 20 Mg PO Unable To Obtain Meds From Prior To Admit (Info) Each 1 Each MC ROS: Review of Systems Review of System REVIEW OF SYSTEMS: GENERAL: Denies weakness SKIN: No bruising, hair changes or rashes. EYES: No blurred, double or loss of vision. NOSE AND THROAT: No history of nosebleeds, hoarseness or sore throat. HEART: No history of palpitations, chest pain or shortness of breath on exertion. LUNGS: Denies cough, hemoptysis, wheezing or shortness of breath. GASTROINTESTINAL: Denies changes in appetite, nausea, vomiting, diarrhea or constipation. GENITOURINARY: No history of frequency, urgency, hesitancy or nocturia. NEUROLOGIC: Denies history of numbness, tingling, or tremor. PSYCHIATRIC: No history of panic, anxiety or depression. ENDOCRINE: No history of heat or cold intolerance, polyuria or polydipsia. EXTREMITIES: Denies joint pain, pain on walking or stiffness. Physical Exam: Vital Signs: Vital Signs Date Time Temp Pulse Resp B/P (MAP) Pulse Ox O2 Delivery O2 Flow Rate FiO2 09/29/20 03:00 83 16 117/80 (92) Room Air 7/17/21 23:45 98.6 98.6 09/28/20 22:09 97 Physcial Exam: GEN: No apparent distress. Alert and oriented HEENT: Normal cephalic, atraumatic, external auditory canals are patent EYES: Extraocular muscles are intact, pupil are equally round and reactive to light and accommodation MUSCULOSKELETAL: Well developed , well nourished, good range of motion ENDOCRINE: No thyromegaly was palpated LYMPHATICS: No cervical chain or axillary nodes were noted HEMATOPOIETIC: No bruising NECK: Supple, no JVD, no thyromegaly was noted LUNGS: Clear to auscultation in all lung griffiths without rhonchi or wheezing HEART: RRR, S!, S2 present. Peripheral pulses intact, no obvious murmurs noted ABDOMEN: Soft, nontender. Positive bowel sounds, no organomegaly, normal bowel sounds EXTREMITIES: Without clubbing, cyanosis, or edema. Pedal pulses intact. Negative Homans sign NEUROLOGIC: Normal speech and tone. A&O x 3, moves all extremities, no obvious focal deficits PSYCHIATRIC: Normal affect, normal mood. Stable SKIN: No ulcerations or rashes, good skin turgor, no jaundice VASCULAR: Good capillary refill, neurovascular bundle appears to be intact Labs: Labs: Laboratory Tests Test 09/28/20 22:03 White Blood Count 11.2 x10^3/uL (4.0-11.0) Red Blood Count 5.15 x10^6/uL (4.30-5.70) Hemoglobin 15.0 g/dL (13.0-17.5) Hematocrit 45.1 % (39.0-53.0) Mean Corpuscular Volume 88 fL (79-100) Mean Corpuscular Hemoglobin 29 pg (25-35) Mean Corpuscular Hemoglobin Concent 33 g/dL (31-37) Red Cell Distribution Width 13.1 % (11.5-14.5) Platelet Count 302 x10^3/uL (140-400) Neutrophils (%) (Auto) 64 % (31-73) Lymphocytes (%) (Auto) 25 % (24-48) Monocytes (%) (Auto) 7 % (0-9) Eosinophils (%) (Auto) 3 % (0-3) Basophils (%) (Auto) 1 % (0-3) Neutrophils # (Auto) 7.2 x10^3/uL (1.8-7.7) Lymphocytes # (Auto) 2.8 x10^3/uL (1.0-4.8) Monocytes # (Auto) 0.8 x10^3/uL (0.0-1.1) Eosinophils # (Auto) 0.3 x10^3/uL (0.0-0.7) Basophils # (Auto) 0.1 x10^3/uL (0.0-0.2) Sodium Level 138 mmol/L (136-145) Potassium Level 4.3 mmol/L (3.5-5.1) Chloride Level 101 mmol/L (98-107) Carbon Dioxide Level 30 mmol/L (21-32) Anion Gap 7 (6-14) Blood Urea Nitrogen 12 mg/dL (8-26) Creatinine 0.6 mg/dL (0.7-1.3) Estimated GFR (Cockcroft-Gault) 178.8 BUN/Creatinine Ratio 20 (6-20) Glucose Level 101 mg/dL (70-99) Calcium Level 9.3 mg/dL (8.5-10.1) Total Bilirubin 0.2 mg/dL (0.2-1.0) Aspartate Amino Transf (AST/SGOT) 15 U/L (15-37) Alanine Aminotransferase (ALT/SGPT) 24 U/L (16-63) Alkaline Phosphatase 102 U/L (46-116) Total Protein 8.0 g/dL (6.4-8.2) Albumin 3.3 g/dL (3.4-5.0) Albumin/Globulin Ratio 0.7 (1.0-1.7) Laboratory Tests Test 09/28/20 22:03 White Blood Count 11.2 x10^3/uL (4.0-11.0) Red Blood Count 5.15 x10^6/uL (4.30-5.70) Hemoglobin 15.0 g/dL (13.0-17.5) Hematocrit 45.1 % (39.0-53.0) Mean Corpuscular Volume 88 fL (79-100) Mean Corpuscular Hemoglobin 29 pg (25-35) Mean Corpuscular Hemoglobin Concent 33 g/dL (31-37) Red Cell Distribution Width 13.1 % (11.5-14.5) Platelet Count 302 x10^3/uL (140-400) Neutrophils (%) (Auto) 64 % (31-73) Lymphocytes (%) (Auto) 25 % (24-48) Monocytes (%) (Auto) 7 % (0-9) Eosinophils (%) (Auto) 3 % (0-3) Basophils (%) (Auto) 1 % (0-3) Neutrophils # (Auto) 7.2 x10^3/uL (1.8-7.7) Lymphocytes # (Auto) 2.8 x10^3/uL (1.0-4.8) Monocytes # (Auto) 0.8 x10^3/uL (0.0-1.1) Eosinophils # (Auto) 0.3 x10^3/uL (0.0-0.7) Basophils # (Auto) 0.1 x10^3/uL (0.0-0.2) Sodium Level 138 mmol/L (136-145) Potassium Level 4.3 mmol/L (3.5-5.1) Chloride Level 101 mmol/L (98-107) Carbon Dioxide Level 30 mmol/L (21-32) Anion Gap 7 (6-14) Blood Urea Nitrogen 12 mg/dL (8-26) Creatinine 0.6 mg/dL (0.7-1.3) Estimated GFR (Cockcroft-Gault) 178.8 BUN/Creatinine Ratio 20 (6-20) Glucose Level 101 mg/dL (70-99) Calcium Level 9.3 mg/dL (8.5-10.1) Total Bilirubin 0.2 mg/dL (0.2-1.0) Aspartate Amino Transf (AST/SGOT) 15 U/L (15-37) Alanine Aminotransferase (ALT/SGPT) 24 U/L (16-63) Alkaline Phosphatase 102 U/L (46-116) Total Protein 8.0 g/dL (6.4-8.2) Albumin 3.3 g/dL (3.4-5.0) Albumin/Globulin Ratio 0.7 (1.0-1.7) Images: Images PROCEDURE: CT ABD PELV W/ IV CONTRST ONLY EXAMINATION: CT abdomen and pelvis with IV contrast. INDICATION:44 years, Male, abdominal pain, unable to replace G-tube. TECHNIQUE: Axial CT images of the abdomen and pelvis were obtained. Coronal and sagittal reformatted performed. COMPARISON: 11/29/2019. Exposure: One or more of the following individualized dose reduction techniques were utilized for this examination: 1. Automated exposure control 2. Adjustment of the mA and/or kV according to patient size 3. Use of iterative reconstruction technique. FINDINGS: LOWER CHEST: Subsegmental atelectasis in bibasilar lungs. ABDOMEN/PELVIS: Liver, spleen, pancreas, gallbladder and biliary ducts, adrenals and kidneys are unremarkable. No gastrostomy tube visualized. Tethering of the gastric body, towards abdominal wall musculature at the level of G-tube coarse. No bowel obstruction or wall thickening. Large amount of stool in the rectum. Appendix is normal. No pneumoperitoneum or ascites. Unremarkable abdominal vasculatures. No lymphadenopathy in the abdomen or pelvis by size criteria. Unremarkable urinary bladder and prostate. No suspicious pelvic masses. MUSCULOSKELETAL: No acute osseous process. IMPRESSION: 1. No acute abnormality in the abdomen or pelvis. 2. No gastrostomy tube visualized. Tethering of the gastric body towards abdominal wall musculature at the level of G-tube coarse, findings may relate to adhesion. Clinical correlation is advised. 3. Large amount of rectal stool burden. Assessment/Plan Assessment/Plan G-tube dislodgment Moderate protein malnutrition Debility Bedbound status History of anxiety History of bipolar disorder History of seizure History of traumatic brain injury with hemiplegia and contractures status post G-tube placement Admit to medicine for further management GI consult for G-tube replacement. Dr. Garcia might be able to place the G-tube by bedside Speech evaluation Lovenox for DVT prophylaxis Protonix GI prophylaxis ADA diet Full code Discussed with RN and SW Disposition inpatient management as above Surrogate decision maker is Emily Gonsalez Justifications for Admission Other Justification EMILY MCELROY MD Sep 29, 2020 07:50
[2020-09-29] MEDS ORDERED: DOCUSATE SODIUM 100 MG CAPSULE. PO PRN (08:00)
[2020-09-29] MEDS ORDERED: PROCHLORPERAZINE 10 MG/2 ML VIAL. IV PRN (08:00)
[2020-09-29] MEDS ORDERED: MORPHINE SULFATE 2 MG/ML INJ. IVP PRN (08:00)
[2020-09-29] MEDS ORDERED: ACETAMINOPHEN 325 MG TABLET. PO PRN (08:00)
[2020-09-29] MEDS ORDERED: MORPHINE SULFATE 2 MG/ML INJ. IV PRN (08:00)
[2020-09-29] MEDS ORDERED: DEXTROSE 50% 25 GM / 50ML DISP.SYRIN. IV PRN (08:00)
[2020-09-29] MEDS ORDERED: SENNOSIDES 8.6 MG TABLET PO PRN (08:00)
[2020-09-29] MEDS ORDERED: ONDANSETRON PF 4 MG/2 ML VIAL. IVP PRN (08:00)
[2020-09-29] MEDS: ENOXAPARIN 40 MG/0.4 ML SYRINGE. SQ SCH (10:30)
[2020-09-29] MEDS: IV DEXTROSE 5 %-0.45 % NACL 1,000 ML IV SCH ×2 (10:32→23:37)
[2020-09-29] MEDS: THIAMINE INJ 100 MG in IV DEXTROSE 5% 50 ML IV SCH (10:33)
[2020-09-29 11:00] VITALS: BP 110/75
--- NOTE | 2020-09-29 13:35 | PDOC2 ---
GI CONSULT Reason For Consult: g tube dislodgment HPI: HPI: 44-year-old male past medical history significant for TBI with spastic hemiplegia, bedbound, presents to the ED after patient removed his G-tube at [facility], unable to be replaced by nursing staff. EMR was reviewed and patient has had prior ED visits for the same complaint. Per review of records, 16 Fr G tube placed by ER physicians ion the past. CT with Tethering of the gastric body towards abdominal wall musculature at the level of G-tube coarse, findings may relate to adhesion PMH: PMH: Past Medical History: Anxiety, Bipolar, Depression, Seizure, Schizophrenia, insomnia, TBI, encephlopathy,hemiplegia,contractures,TONIO, CHRONIC RESP FAIL Past Surgical History: left side/shoulder/chest, FEEDING TUBE Allergies: Allergies: Coded Allergies: chlorpromazine (Verified Allergy, Intermediate, unknown, 03/31/14) divalproex sodium (Verified Allergy, Intermediate, unknown, 03/31/14) fluphenazine (Unverified Allergy, Intermediate, abd pain, 03/31/14) haloperidol (Unverified Allergy, Intermediate, "passout", 03/31/14) Family History: Family History: Reveiwed with no relevant findings Social History: Social History: Smoking Status: Never Smoker Alcohol Use: None Drug Use: None Current Medications: Current Medications Current Medications Hydromorphone HCl (Dilaudid) 1 mg 1X ONCE IM Last administered on 09/28/20at 20:31; Start 09/28/20 at 20:30; Stop 09/28/20 at 20:31; Status DC Lidocaine HCl (Glydo (Lidocaine) Jelly) 1 haim 1X ONCE MM Last administered on 09/28/20at 20:30; Start 09/28/20 at 20:30; Stop 09/28/20 at 20:31; Status DC Sodium Chloride 1,000 ml @ 1,000 mls/hr 1X ONCE IV ; Start 09/28/20 at 21:30; Stop 09/28/20 at 22:29; Status DC Iohexol (Omnipaque 300 Mg/ml) 75 ml 1X ONCE IV Last administered on 09/28/20at 23:23; Start 09/28/20 at 23:00; Stop 09/28/20 at 23:01; Status DC Info (CONTRAST GIVEN -- Rx MONITORING) 1 each PRN DAILY PRN MC SEE COMMENTS; Start 09/28/20 at 22:45; Stop 09/30/20 at 22:44 Active Scripts Active Reported Zoloft (Sertraline Hcl) 100 Mg Tablet 1 Tab PEG DAILY Risperdal (Risperidone) 1 Mg Tablet 1 Mg PEG BID Keppra (Levetiracetam) 100 Mg/1 Ml Solution 5 Ml PEG BID 30 Days Remeron (Mirtazapine) 30 Mg Tablet 1 Tab PEG QHS Famotidine 20 Mg Tablet 20 Mg PEG DAILY Baclofen 20 Mg Tablet 20 Mg PEG QID Trazodone Hcl 50 Mg Tablet 50 Mg PO HS Geodon (Ziprasidone Hcl) 20 Mg Capsule 20 Mg PO Unable To Obtain Meds From Prior To Admit (Info) Each 1 Each MC FH: Family History: No pertinent hx Social History: Smoke: No ALCOHOL: none Drugs: None ROS: unobtainable VItals: Vitals: Vital Signs Date Time Temp Pulse Resp B/P (MAP) Pulse Ox O2 Delivery O2 Flow Rate FiO2 09/29/20 11:00 98.5 86 16 110/75 (87) 91 Room Air 98.5 Labs: Labs: Laboratory Tests Test 09/28/20 22:03 White Blood Count 11.2 x10^3/uL (4.0-11.0) Red Blood Count 5.15 x10^6/uL (4.30-5.70) Hemoglobin 15.0 g/dL (13.0-17.5) Hematocrit 45.1 % (39.0-53.0) Mean Corpuscular Volume 88 fL (79-100) Mean Corpuscular Hemoglobin 29 pg (25-35) Mean Corpuscular Hemoglobin Concent 33 g/dL (31-37) Red Cell Distribution Width 13.1 % (11.5-14.5) Platelet Count 302 x10^3/uL (140-400) Neutrophils (%) (Auto) 64 % (31-73) Lymphocytes (%) (Auto) 25 % (24-48) Monocytes (%) (Auto) 7 % (0-9) Eosinophils (%) (Auto) 3 % (0-3) Basophils (%) (Auto) 1 % (0-3) Neutrophils # (Auto) 7.2 x10^3/uL (1.8-7.7) Lymphocytes # (Auto) 2.8 x10^3/uL (1.0-4.8) Monocytes # (Auto) 0.8 x10^3/uL (0.0-1.1) Eosinophils # (Auto) 0.3 x10^3/uL (0.0-0.7) Basophils # (Auto) 0.1 x10^3/uL (0.0-0.2) Sodium Level 138 mmol/L (136-145) Potassium Level 4.3 mmol/L (3.5-5.1) Chloride Level 101 mmol/L (98-107) Carbon Dioxide Level 30 mmol/L (21-32) Anion Gap 7 (6-14) Blood Urea Nitrogen 12 mg/dL (8-26) Creatinine 0.6 mg/dL (0.7-1.3) Estimated GFR (Cockcroft-Gault) 178.8 BUN/Creatinine Ratio 20 (6-20) Glucose Level 101 mg/dL (70-99) Calcium Level 9.3 mg/dL (8.5-10.1) Total Bilirubin 0.2 mg/dL (0.2-1.0) Aspartate Amino Transf (AST/SGOT) 15 U/L (15-37) Alanine Aminotransferase (ALT/SGPT) 24 U/L (16-63) Alkaline Phosphatase 102 U/L (46-116) Total Protein 8.0 g/dL (6.4-8.2) Albumin 3.3 g/dL (3.4-5.0) Albumin/Globulin Ratio 0.7 (1.0-1.7) Imaging: Imaging: EXAMINATION: CT abdomen and pelvis with IV contrast. INDICATION:44 years, Male, abdominal pain, unable to replace G-tube. TECHNIQUE: Axial CT images of the abdomen and pelvis were obtained. Coronal and sagittal reformatted performed. COMPARISON: 11/29/2019. Exposure: One or more of the following individualized dose reduction techniques were utilized for this examination: 1. Automated exposure control 2. Adjustment of the mA and/or kV according to patient size 3. Use of iterative reconstruction technique. FINDINGS: LOWER CHEST: Subsegmental atelectasis in bibasilar lungs. ABDOMEN/PELVIS: Liver, spleen, pancreas, gallbladder and biliary ducts, adrenals and kidneys are unremarkable. No gastrostomy tube visualized. Tethering of the gastric body, towards abdominal wall musculature at the level of G-tube coarse. No bowel obstruction or wall thickening. Large amount of stool in the rectum. Appendix is normal. No pneumoperitoneum or ascites. Unremarkable abdominal vasculatures. No lymphadenopathy in the abdomen or pelvis by size criteria. Unremarkable urinary bladder and prostate. No suspicious pelvic masses. MUSCULOSKELETAL: No acute osseous process. IMPRESSION: 1. No acute abnormality in the abdomen or pelvis. 2. No gastrostomy tube visualized. Tethering of the gastric body towards abdominal wall musculature at the level of G-tube coarse, findings may relate to adhesion. Clinical correlation is advised. 3. Large amount of rectal stool burden. Electronically signed by: Bi Hi MD (09/28/2020 11:47 PM) [facility] DICTATED and SIGNED BY: BI HI MD DATE: 09/28/20 [id number] PE: GEN: NAD HEENT: Atraumatic, Dentition with metal LUNGS: CTAB HEART: RRR, no murmurs ABD: NABS, S/ND/NT, no masses. Surgical scars. Abd dressing in place at G tube site EXTREMITY: No edema SKIN: No rashes, no jaundice NEURO/PSYCH: A and alert A/P: A/P: 1) G tube dislodgment: I have ordered a G tube to the bedside to attempt replacement given CT apperas to show that a tract has developed. Will attempt placement once G tube available TI SUÁREZ MD Sep 29, 2020 13:35
[2020-09-29 15:00] VITALS: BP 66/32
[2020-09-29 22:48] VITALS: BP 104/68
[2020-09-30 03:00] VITALS: BP 114/56
[2020-09-30 05:23] LABS: BASO % 0 % (0-3); EOS # 0.3 x10^3/uL (0.0-0.7); EOS % 4 % (0-3); HEMATOCRIT 42.7 % (39.0-53.0); LYMPH # 2.5 x10^3/uL (1.0-4.8); LYMPH % 30 % (24-48); MEAN CORPUSCULAR HEMOGLOBIN 29 pg (25-35); MEAN CORPUSCULAR HGB CONC 33 g/dL (31-37); MEAN CORPUSCULAR VOLUME 88 fL (79-100); MONO # 0.7 x10^3/uL (0.0-1.1); MONO % 9 % (0-9); NEUT # 4.8 x10^3/uL (1.8-7.7); NEUT % 57 % (31-73); PLATELET COUNT 283 x10^3/uL (140-400); RED BLOOD COUNT 4.84 x10^6/uL (4.30-5.70); RED CELL DISTRIBUTION WIDTH 12.8 % (11.5-14.5); WHITE BLOOD COUNT 8.4 x10^3/uL (4.0-11.0)
[2020-09-30 05:35] LABS: CALCIUM 8.9 mg/dL (8.5-10.1); CREATININE 0.6 mg/dL (0.7-1.3); GFR 178.8; MAGNESIUM 2.1 mg/dL (1.8-2.4); PHOSPHORUS 3.2 mg/dL (2.6-4.7); POTASSIUM 3.8 mmol/L (3.5-5.1)
[2020-09-30 07:00] VITALS: BP 122/80
[2020-09-30] MEDS: ENOXAPARIN 40 MG/0.4 ML SYRINGE. SQ SCH (07:59)
[2020-09-30] MEDS: IV DEXTROSE 5 %-0.45 % NACL 1,000 ML IV SCH ×2 (08:28→13:49)
[2020-09-30] MEDS: THIAMINE INJ 100 MG in IV DEXTROSE 5% 50 ML IV SCH (08:43)
--- NOTE | 2020-09-30 09:54 | PDOC ---
[employer] PROGRESS NOTE Date of Service DOS: DATE: 09/30/20 TIME: 09:51 Chief Complaint Chief Complaint A/P: Gastrostomy tube dislodgement - GI consulted. No tube available for bedside replacement no 09/29 TONIO Schizophrenia, anxiety, depression - cont meds, needs feeding tub hemiplegia Seizures Traumatic brain injury with right-sided contracture and status post G-tube placement Dysphagia - s/p PEG - will have [employer] [place] videoswallow History of Present Illness History of Present Illness Mr Roberts is a 44-year-old male with past medical history of TONIO, schizophrenia, anxiety, hemiplegia, depression, seizure, traumatic brain injury with right-sided contracture and status post G-tube placement. He presents to the ED after his G-tube was accidentally removed and it was and able to be replaced by the nursing staff. Patient is able to mouth and hand gesture some communication but is unable to describe what he wants. He denies any pain or bleeding from the gastric site. Denies fevers, nausea vomiting, abdominal pain, dysuria, diarrhea. Able to communicate partially with him by using an alphabet list which she is able to point out with his left hand. He mainly just communicated why he cannot use his right hand. I expressed to him that he ultimately needs to continue with OT order to relax his contracture over time. Afebrile. After discussion with speech-language pathology will be for video swallow test today. Patient is able to use hand message for the indicate that he has no pain no shortness of breath and is asking if he can eat and when he can leave the hospital. I explained that his previous PEG tube tract needs to be addressed and he will go for video swallow test he understands the plan. Vitals/I&O Vitals/I&O: Vital Signs Date Time Temp Pulse Resp B/P (MAP) Pulse Ox O2 Delivery O2 Flow Rate FiO2 09/30/20 07:21 Room Air 09/30/20 07:00 98.2 90 18 122/80 (94) 96 98.2 09/29/20 22:48 96.0 Physical Exam General: Alert, Cooperative Labs Labs: Laboratory Tests Test 09/30/20 04:15 White Blood Count 8.4 x10^3/uL (4.0-11.0) Red Blood Count 4.84 x10^6/uL (4.30-5.70) Hemoglobin 14.0 g/dL (13.0-17.5) Hematocrit 42.7 % (39.0-53.0) Mean Corpuscular Volume 88 fL (79-100) Mean Corpuscular Hemoglobin 29 pg (25-35) Mean Corpuscular Hemoglobin Concent 33 g/dL (31-37) Red Cell Distribution Width 12.8 % (11.5-14.5) Platelet Count 283 x10^3/uL (140-400) Neutrophils (%) (Auto) 57 % (31-73) Lymphocytes (%) (Auto) 30 % (24-48) Monocytes (%) (Auto) 9 % (0-9) Eosinophils (%) (Auto) 4 % (0-3) Basophils (%) (Auto) 0 % (0-3) Neutrophils # (Auto) 4.8 x10^3/uL (1.8-7.7) Lymphocytes # (Auto) 2.5 x10^3/uL (1.0-4.8) Monocytes # (Auto) 0.7 x10^3/uL (0.0-1.1) Eosinophils # (Auto) 0.3 x10^3/uL (0.0-0.7) Basophils # (Auto) 0.0 x10^3/uL (0.0-0.2) Sodium Level 140 mmol/L (136-145) Potassium Level 3.8 mmol/L (3.5-5.1) Chloride Level 106 mmol/L (98-107) Carbon Dioxide Level 26 mmol/L (21-32) Anion Gap 8 (6-14) Blood Urea Nitrogen 9 mg/dL (8-26) Creatinine 0.6 mg/dL (0.7-1.3) Estimated GFR (Cockcroft-Gault) 178.8 Glucose Level 99 mg/dL (70-99) Calcium Level 8.9 mg/dL (8.5-10.1) Phosphorus Level 3.2 mg/dL (2.6-4.7) Magnesium Level 2.1 mg/dL (1.8-2.4) Assessment and Plan Assessmemt and Plan Problems Medical Problems: (1) Gastrojejunostomy tube dislodgement Status: Acute Comment Review of Relevant I have reviewed the following items laura (where applicable) has been applied. Justifications for Admission Other Justification Abdominal pain with G-tube dislodgment RY MARSHALL MD Sep 30, 2020 09:54
--- NOTE | 2020-09-30 09:58 | NUR ---
SW following. Discussed with RN. CELINA verified pt is from [facility], room air, NPO. Pt gettomg G tube replaced and video swallow today. SW awaiting verification of whether pt need a COVID test to return to [place] or not. CELINA will continue to follow.
[2020-09-30] MEDS ORDERED: BARIUM SULFATE 40% (APPLE) 148 GM PWD. PO ONE (10:00)
--- NOTE | 2020-09-30 10:06 | PDOC ---
Date of Service: DATE: 09/30/20 TIME: 10:02 Objective: Objective: D/w nurse - unclear [facility], has been asking to eat and drink. Plans for videoswallow. Apparently pt has removed G tube multiple times in the past. Vital Signs: Vital Signs Date Time Temp Pulse Resp B/P (MAP) Pulse Ox O2 Delivery O2 Flow Rate FiO2 09/30/20 07:21 Room Air 09/30/20 07:00 98.2 90 18 122/80 (94) 96 98.2 09/29/20 22:48 96.0 Labs: Laboratory Tests Test 09/30/20 04:15 White Blood Count 8.4 x10^3/uL Red Blood Count 4.84 x10^6/uL Hemoglobin 14.0 g/dL Hematocrit 42.7 % Mean Corpuscular Volume 88 fL Mean Corpuscular Hemoglobin 29 pg Mean Corpuscular Hemoglobin Concent 33 g/dL Red Cell Distribution Width 12.8 % Platelet Count 283 x10^3/uL Neutrophils (%) (Auto) 57 % Lymphocytes (%) (Auto) 30 % Monocytes (%) (Auto) 9 % Eosinophils (%) (Auto) 4 % Basophils (%) (Auto) 0 % Neutrophils # (Auto) 4.8 x10^3/uL Lymphocytes # (Auto) 2.5 x10^3/uL Monocytes # (Auto) 0.7 x10^3/uL Eosinophils # (Auto) 0.3 x10^3/uL Basophils # (Auto) 0.0 x10^3/uL Sodium Level 140 mmol/L Potassium Level 3.8 mmol/L Chloride Level 106 mmol/L Carbon Dioxide Level 26 mmol/L Anion Gap 8 Blood Urea Nitrogen 9 mg/dL Creatinine 0.6 mg/dL Estimated GFR (Cockcroft-Gault) 178.8 Glucose Level 99 mg/dL Calcium Level 8.9 mg/dL Phosphorus Level 3.2 mg/dL Magnesium Level 2.1 mg/dL Imaging: [employer] Bedside Swallow Eval: Oropharyngeal dysphagia w/ high risk for aspiration based on chronic need for NPO, aphonia, and current findings of prolonged oral A-P transport, need for multiple swallows, and decreased superior laryngeal mvmt to palpation. Severe chronic motor speech impairment also increases risk for aspiration. Suspect apraxia. RECOMMENDATIONS: Continue NPO w/ aggressive oral care. Obtain videoswallow reports and any other [employer] records from [place]. If no recent videoswallow eval report, recommend proceed with videoswallow eval to fully evaluate laryngeal function and risk for aspiration. PE: GEN: NAD, awake and alert LUNGS: clear anteriorly HEART: RRR ABD: dressing over PEG site, abd non-tender, non-distended NEURO/PSYCH: non-verbal, motion with hand, occasional grunt A/P: H/o TBI w/ contractures and dysphagia, G tube dislodgement -- D/w Dr. Mendoza - await videoswallow. D/w GI lab - available sizes for replacement tubes: 18, 20, 22 Fr (but not 16Fr). Update: Pt in ER for G tube replacement 5 times (not including this visit) since 2019. Videoswallow 09/30 IMPRESSION: Silent aspiration with thin liquid and nectar thick. D/w [employer]. Reviewed w/ Dr. Mendoza - we'll plan for EGD w/ PEG placement (original kit) tomorrow afternoon. D/w nurse - will need consent, etc. COVID negative. Justicifation of Admission Dx: Justifications for Admission: Justification of Admission Dx: N/A RORY HAMMONDS Sep 30, 2020 10:06
[2020-09-30 10:47] VITALS: BP 119/78
--- NOTE | 2020-09-30 13:16 | RAD ---
EXAMINATION: DG VIDEO SWALLOW STUDY 09/30/2020 12:38 PM HISTORY: Aspiration, PEG, assess for advancing diet COMPARISON: None. TECHNIQUE: The patient was observed swallowing various consistencies of barium under intermittent flu oroscopy. FINDINGS: There was aspiration with thin liquid from a cup after multiple consecutive sips, and with nectar thi ck. There were residuals in the oropharynx throughout the exam. The patient was unable to attempt swa llowing a cookie and had to spit it out with assistance. Total fluoroscopic time:2.4 minutes. . IMPRESSION: Silent aspiration with thin liquid and nectar thick. Please see the speech pathologist's report for details. Electronically signed by: Vanessa Correia MD (09/30/2020 1:14 PM) [id number]
[2020-09-30 15:00] VITALS: BP 110/75
[2020-09-30 19:00] VITALS: BP 120/82
[2020-09-30 22:58] VITALS: BP 116/81
[2020-10-01] VITALS (14 sets, daily range): BP systolic 111–134; BP diastolic 70–93
[2020-10-01] MEDS: IV DEXTROSE 5 %-0.45 % NACL 1,000 ML IV SCH ×3 (00:18→20:38)
[2020-10-01] MEDS: ENOXAPARIN 40 MG/0.4 ML SYRINGE. SQ SCH (07:46)
[2020-10-01] MEDS: THIAMINE INJ 100 MG in IV DEXTROSE 5% 50 ML IV SCH (09:17)
--- NOTE | 2020-10-01 10:06 | PDOC ---
[facility] [facility] PROGRESS NOTE Date of Service DOS: DATE: 10/01/20 TIME: 10:05 Chief Complaint Chief Complaint A/P: Gastrostomy tube dislodgement - GI consulted. 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 He presents to the ED after his G-tube was accidentally removed and it was and able to be replaced by the nursing staff. Patient is able to mouth and hand gesture some communication but is unable to describe what he wants. He denies any pain or bleeding from the gastric site. Denies fevers, nausea vomiting, abdominal pain, dysuria, diarrhea. Able to communicate partially with him by using an alphabet list which she is able to point out with his left hand. He mainly just communicated why he cannot use his right hand. I expressed to him that he ultimately needs to continue with OT order to relax his contracture over time. 10/01: Afebrile. Speech-language pathology to video swallow test Silent aspiration with thin liquid and nectar thick, placed NPO. Afebrile overnight. Labs normalized. Going for EGD with PEG tube placement today likely can go back to SNF in the next 24 hours. He has no pain no shortness of breath he indicates that he would like his teeth brushed Vitals/I&O Vitals/I&O: Vital Signs Date Time Temp Pulse Resp B/P (MAP) Pulse Ox O2 Delivery O2 Flow Rate FiO2 10/01/20 07:02 Room Air 10/01/20 07:00 98.3 79 18 129/82 (98) 98 98.3 l I & O 09/30/20 09/30/20 10/01/20 15:00 23:00 07:00 Intake Total 0 ml Balance 0 ml Physical Exam General: Alert, Cooperative Labs Labs: Laboratory Tests Test 09/30/20 10:10 SARS-CoV-2 RNA (TODD) Invalid (Negative) SARS-CoV-2 Antigen (Rapid) Negative (NEGATIVE) Assessment and Plan Assessmemt and Plan Problems Medical Problems: (1) Gastrojejunostomy tube dislodgement Status: Acute Comment Review of Relevant I have reviewed the following items laura (where applicable) has been applied. Justifications for Admission Other Justification Abdominal pain with G-tube dislodgment RY MARSHALL MD Oct 01, 2020 10:06
--- NOTE | 2020-10-01 10:18 | NUR ---
SW following. Discussed with RN, pt getting an EGD with peg today. Updates faxed to [place]. SW will continue to follow.
[2020-10-01] MEDS ORDERED: IV RINGERS,LACTATED 1000ML 1,000 ML IV ONE (10:45)
[2020-10-01] MEDS ORDERED: ceFAZolin 2GM PREMIX 2 GM/50 ML BAG IV ONE (12:00)
[2020-10-01] MEDS ORDERED: PROPOFOL 10 MG/ML (20ML) VIAL. IV ONE ×2 (12:05→13:36)
--- NOTE | 2020-10-01 13:37 | PDOC4 ---
Operative Note Operative Note EGD with attempted PEG placement- unsuccessful Meds propofol per anesthesia Pre-op dx oropharyngeal dysphagia with dislodged G tubes Post-op dx gastritis unsuccessful G tube placement due to scarring /fibrosis of old tract-unable to pass catheter into gastric lumen near old tract Plan surgery consult for G tube placement PONCE CASEY MD Oct 01, 2020 13:37
--- NOTE | 2020-10-01 14:44 | PDOC2 ---
CONSULT Date of Consult Date of Consult DATE: 10/01/20 TIME: 14:41 Reason for Consult Reason for Consult: g tube placement Referring Physician Referring Physician: Dr Mendoza Identification/Chief Complaint Chief Complaint g tube removal Source Source: Chart review History of Present Illness Reason for Visit: TBI with spastic hemiplegia, bedbound, presents to the ED after patient removed his G-tube at [facility], unable to be replaced by nursing staff attempted replacement by GI was unable to place to due to scarring of tract Records indicate has pulled multiple feeding tubes out Past Medical History Past Medical History Anxiety, Bipolar, Depression, Seizure, Schizophrenia, insomnia, TBI, encephlopathy,hemiplegia,contractures,TONIO, CHRONIC RESP FAIL Social History No ALCOHOL: none Drugs: None Current Problem List Problem List Problems Medical Problems: (1) Gastrojejunostomy tube dislodgement Status: Acute Current Medications Current Medications Current Medications Hydromorphone HCl (Dilaudid) 1 mg 1X ONCE IM Last administered on 09/28/20at 20:31; Start 09/28/20 at 20:30; Stop 09/28/20 at 20:31; Status DC Lidocaine HCl (Glydo (Lidocaine) Jelly) 1 haim 1X ONCE MM Last administered on 09/28/20at 20:30; Start 09/28/20 at 20:30; Stop 09/28/20 at 20:31; Status DC Sodium Chloride 1,000 ml @ 1,000 mls/hr 1X ONCE IV Last administered on 09/29/20at 10:27; Start 09/28/20 at 21:30; Stop 09/28/20 at 22:29; Status DC Iohexol (Omnipaque 300 Mg/ml) 75 ml 1X ONCE IV Last administered on 09/28/20at 23:23; Start 09/28/20 at 23:00; Stop 09/28/20 at 23:01; Status DC Info (CONTRAST GIVEN -- Rx MONITORING) 1 each PRN DAILY PRN MC SEE COMMENTS; Start 09/28/20 at 22:45; Stop 09/30/20 at 22:44; Status DC Sennosides (Senna) 17.2 mg PRN BID PRN PO CONSTIPATION; Start 09/29/20 at 08:00 Docusate Sodium (Colace) 100 mg PRN DAILY PRN PO HARD STOOLS; Start 09/29/20 at 08:00 Thiamine HCl 100 mg/Dextrose 51 ml @ 102 mls/hr DAILY IV Last administered on 10/01/20at 09:17; Start 09/29/20 at 09:00 Ondansetron HCl (Zofran) 4 mg PRN Q6HRS PRN IVP NAUSEA/VOMITING; Start 09/29/20 at 08:00 Dextrose (Dextrose 50%-Water Syringe) 12.5 gm PRN Q15MIN PRN IV SEE COMMENTS; Start 09/29/20 at 08:00 Dextrose/Sodium Chloride 1,000 ml @ 100 mls/hr Q10H IV Last administered on 10/01/20at 00:18; Start 09/29/20 at 08:00 Acetaminophen (Tylenol) 650 mg PRN Q4HRS PRN PO TEMP OVER 100.4F OR MILD PAIN; Start 09/29/20 at 08:00 Enoxaparin Sodium (Lovenox 40mg Syringe) 40 mg Q24H SQ Last administered on 09/29/20at 10:30; Start 09/29/20 at 09:00 Morphine Sulfate (Morphine Sulfate) 1 mg PRN Q1HR PRN IV PAIN; Start 09/29/20 at 08:00 Morphine Sulfate (Morphine Sulfate) 2 mg PRN Q2HR PRN IVP SEVERE PAIN 7-10; Start 09/29/20 at 08:00; Stop 09/30/20 at 07:59; Status DC Prochlorperazine Edisylate (Compazine) 10 mg PRN Q6HRS PRN IV NAUSEA/VOMITING; Start 09/29/20 at 08:00; Status UNV Barium Sulfate (Varibar Thin Liquid Apple) 148 gm 1X ONCE PO Last administered on 09/30/20at 12:45; Start 09/30/20 at 10:00; Stop 09/30/20 at 10:01; Status DC Ringer's Solution 1,000 ml @ 75 mls/hr 1X ONCE IV Last administered on 10/01/20at 10:45; Start 10/01/20 at 10:45; Stop 10/02/20 at 00:04 Propofol (Diprivan) 200 mg STK-MED ONCE IV ; Start 10/01/20 at 12:05; Stop 10/01/20 at 12:06; Status DC Cefazolin Sodium/ Dextrose 50 ml @ 100 mls/hr 1X ONCE IV ; Start 10/01/20 at 13:15; Stop 10/01/20 at 13:44; Status DC Cefazolin Sodium/ Dextrose 50 ml @ As Directed STK-MED ONCE IV ; Start 10/01/20 at 13:08; Stop 10/01/20 at 13:09; Status DC Propofol (Diprivan) 200 mg STK-MED ONCE IV ; Start 10/01/20 at 13:36; Stop 10/01/20 at 13:37; Status DC Active Scripts Active Reported Zoloft (Sertraline Hcl) 100 Mg Tablet 1 Tab PEG DAILY Risperdal (Risperidone) 1 Mg Tablet 1 Mg PEG BID Keppra (Levetiracetam) 100 Mg/1 Ml Solution 5 Ml PEG BID 30 Days Remeron (Mirtazapine) 30 Mg Tablet 1 Tab PEG QHS Famotidine 20 Mg Tablet 20 Mg PEG DAILY Baclofen 20 Mg Tablet 20 Mg PEG QID Trazodone Hcl 50 Mg Tablet 50 Mg PO HS Geodon (Ziprasidone Hcl) 20 Mg Capsule 20 Mg PO Unable To Obtain Meds From Prior To Admit (Info) Each 1 Each MC Allergies Allergies: Coded Allergies: chlorpromazine (Verified Allergy, Intermediate, unknown, 10/01/20) divalproex sodium (Verified Allergy, Intermediate, unknown, 10/01/20) fluphenazine (Unverified Allergy, Intermediate, abd pain, 10/01/20) haloperidol (Unverified Allergy, Intermediate, "passout", 10/01/20) Physical Exam General: Alert, No acute distress HEENT: Atraumatic, Mucous membr. moist/pink Lungs: Clear to auscultation, Normal air movement Heart: Regular rate, Normal S1, Normal S2 Abdomen: Soft, Other (ND, LUQ scar, peg site dressing ) Neuro: Other (nonverbal ) Vitals VITALS Vital Signs Date Time Temp Pulse Resp B/P (MAP) Pulse Ox O2 Delivery O2 Flow Rate FiO2 10/01/20 13:48 80 20 116/73 96 Room Air 10/01/20 13:33 98.9 6 98.9 Labs Labs Laboratory Tests Test 09/30/20 04:15 09/30/20 10:10 White Blood Count 8.4 x10^3/uL (4.0-11.0) Red Blood Count 4.84 x10^6/uL (4.30-5.70) Hemoglobin 14.0 g/dL (13.0-17.5) Hematocrit 42.7 % (39.0-53.0) Mean Corpuscular Volume 88 fL (79-100) Mean Corpuscular Hemoglobin 29 pg (25-35) Mean Corpuscular Hemoglobin Concent 33 g/dL (31-37) Red Cell Distribution Width 12.8 % (11.5-14.5) Platelet Count 283 x10^3/uL (140-400) Neutrophils (%) (Auto) 57 % (31-73) Lymphocytes (%) (Auto) 30 % (24-48) Monocytes (%) (Auto) 9 % (0-9) Eosinophils (%) (Auto) 4 % (0-3) Basophils (%) (Auto) 0 % (0-3) Neutrophils # (Auto) 4.8 x10^3/uL (1.8-7.7) Lymphocytes # (Auto) 2.5 x10^3/uL (1.0-4.8) Monocytes # (Auto) 0.7 x10^3/uL (0.0-1.1) Eosinophils # (Auto) 0.3 x10^3/uL (0.0-0.7) Basophils # (Auto) 0.0 x10^3/uL (0.0-0.2) Sodium Level 140 mmol/L (136-145) Potassium Level 3.8 mmol/L (3.5-5.1) Chloride Level 106 mmol/L (98-107) Carbon Dioxide Level 26 mmol/L (21-32) Anion Gap 8 (6-14) Blood Urea Nitrogen 9 mg/dL (8-26) Creatinine 0.6 mg/dL (0.7-1.3) Estimated GFR (Cockcroft-Gault) 178.8 Glucose Level 99 mg/dL (70-99) Calcium Level 8.9 mg/dL (8.5-10.1) Phosphorus Level 3.2 mg/dL (2.6-4.7) Magnesium Level 2.1 mg/dL (1.8-2.4) SARS-CoV-2 RNA (TODD) Invalid (Negative) SARS-CoV-2 Antigen (Rapid) Negative (NEGATIVE) Assessment/Plan Assessment/Plan dislodged g tube hx of multiple tube removals will review with MEGHAN Sanchez APRN Oct 01, 2020 14:44
[2020-10-02 03:00] VITALS: BP 114/68
[2020-10-02] MEDS: IV DEXTROSE 5 %-0.45 % NACL 1,000 ML IV SCH (06:01)
[2020-10-02 07:00] VITALS: BP 127/57
--- NOTE | 2020-10-02 07:32 | PDOC ---
[facility] [facility] PROGRESS NOTE Date of Service DOS: DATE: 10/02/20 TIME: 07:32 Chief Complaint Chief Complaint A/P: Gastrostomy tube dislodgement - GI consulted. 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 He presents to the ED after his G-tube was accidentally removed and it was and able to be replaced by the nursing staff. Patient is able to mouth and hand gesture some communication but is unable to describe what he wants. He denies any pain or bleeding from the gastric site. Denies fevers, nausea vomiting, abdominal pain, dysuria, diarrhea. Able to communicate partially with him by using an alphabet list which she is able to point out with his left hand. He mainly just communicated why he cannot use his right hand. I expressed to him that he ultimately needs to continue with OT order to relax his contracture over time. 10/01: Afebrile. Speech-language pathology to video swallow test Silent aspiration with thin liquid and nectar thick, placed NPO. 10/02: Afebrile overnight. Labs normalized. No pain no shortness of breath he indicates that he would like his teeth brushed. GI unable to place PEG, general surgery consulted. Afebrile, no SOB or CP. Asking for food. Thinks it is 1998 and he is incarcerated. Has missed multiple doses of mood stabilizing meds. Discussed with pharmacy will start ppn and IM geodon. Vitals/I&O Vitals/I&O: Vital Signs Date Time Temp Pulse Resp B/P (MAP) Pulse Ox O2 Delivery O2 Flow Rate FiO2 10/02/20 07:15 Room Air 10/02/20 03:00 97.8 76 16 114/68 (83) 91 97.8 10/01/20 13:33 6 I & O 10/01/20 10/01/20 10/02/20 14:59 22:59 06:59 Intake Total 550 ml Balance 550 ml Physical Exam General: Alert, No acute distress Heart: Regular rate, Normal S1, Normal S2 Abdomen: Soft, Other (ND, LUQ scar, peg site dressing ) Assessment and Plan Assessmemt and Plan Problems Medical Problems: (1) Gastrojejunostomy tube dislodgement Status: Acute Comment Review of Relevant I have reviewed the following items laura (where applicable) has been applied. Medications: Current Medications Medications (Trade) Dose Ordered Sig/Moses Route PRN Reason Start Time Stop Time Status Last Admin Dose Admin Ringer's Solution 1,000 ml @ 75 mls/hr 1X ONCE IV 10/01/20 10:45 10/02/20 00:04 DC 10/01/20 10:45 Justifications for Admission Other Justification Abdominal pain with G-tube dislodgment RY MARSHALL MD Oct 02, 2020 07:32
[2020-10-02] MEDS: ENOXAPARIN 40 MG/0.4 ML SYRINGE. SQ SCH (07:58)
[2020-10-02] MEDS: THIAMINE INJ 100 MG in IV DEXTROSE 5% 50 ML IV SCH (08:53)
--- NOTE | 2020-10-02 09:42 | NUR ---
SW following. Discussed with RN, pt unable to get PEG placed yesterday due to too much scar tissue. Surgery consulted to potentially place a G tube. Pt from [facility]. SW will continue to follow.
[2020-10-02 11:00] VITALS: BP 117/77
[2020-10-02] MEDS: AA 4.25 %/CALCIUM/LYTES/D5W 1,000 ML IV SCH (11:31)
[2020-10-02] MEDS: levETIRAcetam 500 MG in IV DEXTROSE 5% 100ML 100 ML IV SCH ×2 (11:31→21:38)
--- NOTE | 2020-10-02 11:35 | PDOC ---
Date of Service: DATE: 10/02/20 TIME: 11:32 Subjective: Subjective: "Hi!" Says he's very hungry and needs the tube. Objective: Objective: D/w nurse - pt very hungry. Vital Signs: Vital Signs Date Time Temp Pulse Resp B/P (MAP) Pulse Ox O2 Delivery O2 Flow Rate FiO2 10/02/20 07:15 Room Air 10/02/20 07:00 87 17 127/57 (80) 96 10/02/20 03:00 97.8 97.8 10/01/20 13:33 6 Imaging: EGD with attempted PEG placement- unsuccessful Meds propofol per anesthesia Pre-op dx oropharyngeal dysphagia with dislodged G tubes Post-op dx gastritis unsuccessful G tube placement due to scarring /fibrosis of old tract-unable to pass catheter into gastric lumen near old tract Plan surgery consult for G tube placement PE: GEN: NAD LUNGS: CTAB HEART: RRR ABD: soft, non-tender NEURO/PSYCH: awake and alert, speech difficult to understand A/P: H/o TBI w/ contractures and dysphagia, G tube dislodgement (multiple times) - EGD to replace PEg unsuccessful as above -- Since I have seen, orders for PPN. Surgery following. Justicifation of Admission Dx: Justifications for Admission: Justification of Admission Dx: N/A RORY HAMMONDS Oct 02, 2020 11:35
[2020-10-02] MEDS: ZIPRASIDONE IM 20 MG VIAL. IM SCH ×2 (13:09→21:38)
[2020-10-02 15:00] VITALS: BP 115/86
[2020-10-02 19:00] VITALS: BP 117/79
[2020-10-02 23:00] VITALS: BP 97/64
[2020-10-03] MEDS: AA 4.25 %/CALCIUM/LYTES/D5W 1,000 ML IV SCH ×2 (00:16→11:00)
[2020-10-03 03:00] VITALS: BP 91/67
[2020-10-03] MEDS: ENOXAPARIN 40 MG/0.4 ML SYRINGE. SQ SCH (06:45)
[2020-10-03 07:00] VITALS: BP 114/73
--- NOTE | 2020-10-03 07:45 | PDOC ---
[employer] [facility] PROGRESS NOTE Date of Service DOS: DATE: 10/03/20 TIME: 07:45 Chief Complaint Chief Complaint A/P: Gastrostomy tube dislodgement - GI consulted. No tube available for bedside replacement no 09/29 TONIO Schizophrenia, anxiety, depression - cont meds, needs feeding tub hemiplegia Seizures Traumatic brain injury with right-sided contracture and status post G-tube placement Dysphagia - s/p PEG - will have CARPENTER ROUGH videoswallow History of Present Illness History of Present Illness Mr Roberts is a 44-year-old male with past medical history of TONIO, schizophrenia, anxiety, hemiplegia, depression, seizure, traumatic brain injury with right-sided contracture and status post G-tube placement. He presents to the ED after his G-tube was accidentally removed and it was and able to be replaced by the nursing staff. Patient is able to mouth and hand gesture some communication but is unable to describe what he wants. He denies any pain or bleeding from the gastric site. Denies fevers, nausea vomiting, abdominal pain, dysuria, diarrhea. Able to communicate partially with him by using an alphabet list which she is able to point out with his left hand. He mainly just communicated why he cannot use his right hand. I expressed to him that he ultimately needs to continue with OT order to relax his contracture over time. 09/30: Afebrile. Speech-language pathology to video swallow test Silent aspiration with thin liquid and nectar thick, placed NPO. 10/01: Afebrile overnight. Labs normalized. No pain no shortness of breath he indicates that he would like his teeth brushed. GI unable to place PEG, general surgery consulted. 10/02: Afebrile, no SOB or CP. Asking for food. Thinks it is 1998 and he is incarcerated. Missed doses of mood stabilizing meds. Start ppn and IM geodon. Afebrile no shortness of breath or chest pain. Still asking for food or drink. Not passed swallow evaluation. Mood more stable. Discussed with general surgery is concerned about PEG dislodgment and possible long-term peritonitis. G-tube would be his only way to receive nutrition Vitals/I&O Vitals/I&O: Vital Signs Date Time Temp Pulse Resp B/P (MAP) Pulse Ox O2 Delivery O2 Flow Rate FiO2 10/03/20 07:25 Room Air 10/03/20 07:00 97.4 82 16 114/73 (78) 94 97.4 I & O 10/02/20 10/02/20 10/03/20 14:59 22:59 06:59 Intake Total 0 ml Balance 0 ml Physical Exam General: Alert, No acute distress Heart: Regular rate, Normal S1, Normal S2 Abdomen: Soft, Other (ND, LUQ scar, peg site dressing ) Assessment and Plan Assessmemt and Plan Problems Medical Problems: (1) Gastrojejunostomy tube dislodgement Status: Acute Comment Review of Relevant I have reviewed the following items laura (where applicable) has been applied. Medications: Current Medications Medications (Trade) Dose Ordered Sig/Moses Route PRN Reason Start Time Stop Time Status Last Admin Dose Admin Amino Acids/ Electrolytes/ Dextrose 1,000 ml @ 80 mls/hr [id number] IV 10/02/20 11:30 10/03/20 00:16 Levetiracetam 500 mg/Dextrose 105 ml @ 420 mls/hr Q12HR IV 10/02/20 12:00 10/02/20 21:38 Ziprasidone (Geodon Im) 10 mg BID IM 10/02/20 13:30 10/02/20 21:38 Justifications for Admission Other Justification Abdominal pain with G-tube dislodgment RY MARSHALL MD Oct 03, 2020 07:45
[2020-10-03] MEDS: levETIRAcetam 500 MG in IV DEXTROSE 5% 100ML 100 ML IV SCH ×2 (08:00→21:29)
[2020-10-03] MEDS: ZIPRASIDONE IM 20 MG VIAL. IM SCH ×2 (08:03→21:29)
--- NOTE | 2020-10-03 10:13 | PDOC ---
Date of Service: DATE: 10/03/20 TIME: 10:11 Subjective: Subjective: Wants to eat. Says he didn't pull the tube out. Objective: Objective: Reviewed surgery note: Multiple times his G-tube is been pulled not sure that any tube is going to be able to be kept for any length of time. Need to discuss with DPOA about surgically placed gastrostomy tube Vital Signs: Vital Signs Date Time Temp Pulse Resp B/P (MAP) Pulse Ox O2 Delivery O2 Flow Rate FiO2 10/03/20 07:25 Room Air 10/03/20 07:00 97.4 82 16 114/73 (87) 94 97.4 PE: GEN: NAD LUNGS: CTAB HEART: RRR ABD: soft, non-tender NEURO/PSYCH: awake and alert, speech difficult to understand A/P: H/o TBI w/ dysphagia, G tube dislodgement - EGD/re-PEG unsuccessful, surgery following, NPO on PPN -- Surgery recs as above. Justicifation of Admission Dx: Justifications for Admission: Justification of Admission Dx: N/A RORY HAMMONDS Oct 03, 2020 10:13
[2020-10-03 11:00] VITALS: BP 106/69
--- NOTE | 2020-10-03 11:21 | PDOC ---
SURGICAL PROGRESS NOTE DATE: 10/03/20 TIME: 11:20 Subjective has himself covered with blankets d/w IPC Vital Signs Vital Signs Date Time Temp Pulse Resp B/P (MAP) Pulse Ox O2 Delivery O2 Flow Rate FiO2 10/03/20 07:25 Room Air 10/03/20 07:00 97.4 82 16 114/73 (87) 94 97.4 I&O Intake and Output 10/03/20 06:59 Intake Total 0 ml Balance 0 ml Intake Oral 0 ml # Voids 3 # Bowel Movements 1 General: No acute distress Abdomen: Soft Problem List Problems Medical Problems: (1) Gastrojejunostomy tube dislodgement Status: Acute Assessment/Plan poor candidate, however no other current options will d/w Dr Lujan, DPOA--increased risks for infection, wound, potential inability to replace if pulls g tube out Justicifation of Admission Dx: Justifications for Admission: Justification of Admission Dx: N/A MEGHAN FRANCOIS BALLET MASTER/MISTRESS Oct 03, 2020 11:21
[2020-10-03 15:00] VITALS: BP 115/76
[2020-10-03 19:00] VITALS: BP 109/70
[2020-10-03 23:00] VITALS: BP 92/62
[2020-10-04] VITALS (13 sets, daily range): BP systolic 90–137; BP diastolic 57–89
[2020-10-04] MEDS: AA 4.25 %/CALCIUM/LYTES/D5W 1,000 ML IV SCH ×2 (00:49→15:02)
[2020-10-04] MEDS ORDERED: ROCURONIUM 50 MG/5 ML VIAL. ONE (08:27)
[2020-10-04] MEDS ORDERED: ONDANSETRON PF 4 MG/2 ML VIAL. ONE (08:27)
[2020-10-04] MEDS ORDERED: DEXAMETHASONE SOD PHOS 4 MG/ML VIAL ONE (08:27)
[2020-10-04] MEDS ORDERED: LIDOCAINE 2% PF 5 ML VIAL. ONE (08:27)
[2020-10-04] MEDS ORDERED: PROPOFOL 10 MG/ML (20ML) VIAL. IV ONE ×3 (08:27→12:45)
[2020-10-04] MEDS: ENOXAPARIN 40 MG/0.4 ML SYRINGE. SQ SCH (09:00)
--- NOTE | 2020-10-04 09:50 | NUR ---
SW following. Discussed with RN, updates faxed to [facility]. Still awaiting G tube placement. SW will continue to follow.
--- NOTE | 2020-10-04 10:03 | PDOC ---
Date of Service: DATE: 10/04/20 TIME: 10:00 Subjective: Subjective: Asks me to dial the phone number for his cousin. Objective: Objective: D/w nurse - G tube plans unclear. Vital Signs: Vital Signs Date Time Temp Pulse Resp B/P (MAP) Pulse Ox O2 Delivery O2 Flow Rate FiO2 10/04/20 07:00 98.5 82 18 122/89 (100) 95 Room Air 98.5 PE: GEN: chronically ill LUNGS: CTAB HEART: RRR ABD: soft NEURO/PSYCH: A & O 3, speech garbled A/P: H/o TBI w/ contractures and dysphagia, G tube dislodgement (multiple times) - EGD to replace PEG unsuccessful, surgery following and has discussed increased risks w/ DPOA -- Following along. Justicifation of Admission Dx: Justifications for Admission: Justification of Admission Dx: N/A RORY HAMMONDS Oct 04, 2020 10:03
[2020-10-04] MEDS: ZIPRASIDONE IM 20 MG VIAL. IM SCH ×2 (10:05→21:00)
--- NOTE | 2020-10-04 10:05 | PDOC ---
[facility] [facility] PROGRESS NOTE Date of Service DOS: DATE: 10/04/20 TIME: 10:03 Chief Complaint Chief Complaint A/P: Gastrostomy tube dislodgement - GI consulted. 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 He presents to the ED after his G-tube was accidentally removed and it was and able to be replaced by the nursing staff. Patient is able to mouth and hand gesture some communication but is unable to describe what he wants. He denies any pain or bleeding from the gastric site. Denies fevers, nausea vomiting, abdominal pain, dysuria, diarrhea. Able to communicate partially with him by using an alphabet list which she is able to point out with his left hand. He mainly just communicated why he cannot use his right hand. I expressed to him that he ultimately needs to continue with OT order to relax his contracture over time. 09/30: Afebrile. Speech-language pathology to video swallow test Silent aspiration with thin liquid and nectar thick, placed NPO. 10/01: Afebrile overnight. Labs normalized. No pain no shortness of breath he indicates that he would like his teeth brushed. GI unable to place PEG, general surgery consulted. 10/02: Afebrile, no SOB or CP. Asking for food. Thinks it is 1998 and he is incarcerated. Missed doses of mood stabilizing meds. Start ppn and IM geodon. 10/03: Afebrile no shortness of breath or chest pain. Still asking for food or drink. Not passed swallow evaluation. Mood more stable. Discussed with general surgery is concerned about PEG dislodgment and possible long-term peritonitis. G-tube would be his only way to receive nutrition Afebrile. No shortness of breath or chest pain. Continues to ask for food and drink and wants me to contact his mother. Mood is more stable. Vitals/I&O Vitals/I&O: Vital Signs Date Time Temp Pulse Resp B/P (MAP) Pulse Ox O2 Delivery O2 Flow Rate FiO2 10/04/20 07:00 98.5 82 18 122/89 (100) 95 Room Air 98.5 I & O 10/03/20 10/03/20 10/04/20 15:00 23:00 07:00 Intake Total 0 ml Balance 0 ml Physical Exam General: No acute distress Heart: Regular rate, Normal S1, Normal S2 Abdomen: Soft Assessment and Plan Assessmemt and Plan Problems Medical Problems: (1) Gastrojejunostomy tube dislodgement Status: Acute Comment Review of Relevant I have reviewed the following items laura (where applicable) has been applied. Justifications for Admission Other Justification Abdominal pain with G-tube dislodgment RY MARSHALL MD Oct 04, 2020 10:05
[2020-10-04] MEDS: levETIRAcetam 500 MG in IV DEXTROSE 5% 100ML 100 ML IV SCH ×2 (10:16→20:59)
[2020-10-04] MEDS ORDERED: BUPIVACAINE-EPI 0.5% 30 ML VIAL KIT. ONE (11:39)
--- NOTE | 2020-10-04 12:55 | PDOC4 ---
Operative Note Operative Note Date: October 042020 at 1251 Preoperative diagnosis: Dysphagia Postoperative diagnosis: Same Procedure: Esophagogastroduodenoscopy with percutaneous endoscopic gastrostomy tube Surgeon: Tai Specimen: None Dictation: Patient is a 44-year-old male who is unable to swallow appropriately has had multiple gastrostomy tubes recently was pulled out needing replacement tube for feeding. The procedure of EGD PEG tube placement was explained to his DPOA as well as open gastrostomy tube placement risk benefits were also discussed including bleeding infection injury to intra-abdominal contents possible necessitating further open operations alternatives to this procedure also discussed with the DPOA who gave verbal written consent to have the procedure performed. Patient was taken to the operating room placed in the supine position IV sedation was initiated by anesthesia a Olympus EGD scope was passed via the hypopharynx into the esophagus distally the stomach. The anterior abdominal wall was prepped with Betadine solution and area was palpated in the epigastric that percussed to be seen in the stomach this area was injected with 1% lidocaine with epinephrine and small incision was made 11 blade scalpel and a 22-gauge Angiocath was placed into the stomach under direct visualization the loop wire were then placed through the catheter into the stomach this was grasped with a snare and retracted via the stomach esophagus hypopharynx to the oropharynx. The gastrostomy tube was then placed around the wire and then pulled again through the anterior abdominal wall pulling the urostomy tube via the esophagus into the stomach and out the anterior abdominal wall leaving it in place with the bumper. The G-tube was then sewn to the abdominal skin with 2-0 silk. Drain sponges were placed Medipore tape was used to cover the drain as well as an abdominal binder. IV sedation was discontinued patient was taken to recovery in stable condition all sponge instrument needle counts listed as correct estimated blood loss less than 5 mL ELVIRA CROOKS MD Oct 04, 2020 12:55
[2020-10-04] MEDS ORDERED: fentaNYL PF VIAL 100 MCG/2 ML VIAL ONE (13:01)
[2020-10-04] MEDS ORDERED: fentaNYL PF VIAL 100 MCG/2 ML VIAL IVP ONE (13:45)
[2020-10-05 03:00] VITALS: BP 113/60
[2020-10-05 07:00] VITALS: BP 123/92
--- NOTE | 2020-10-05 08:30 | PDOC ---
[facility] PROGRESS NOTE Date of Service DOS: DATE: 10/05/20 TIME: 08:29 Chief Complaint Chief Complaint A/P: Gastrostomy tube dislodgement - GI consulted, unable to place. 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 He presents to the ED after his G-tube was accidentally removed and it was and able to be replaced by the nursing staff. Patient is able to mouth and hand gesture some communication but is unable to describe what he wants. He denies any pain or bleeding from the gastric site. Denies fevers, nausea vomiting, abdominal pain, dysuria, diarrhea. Able to communicate partially with him by using an alphabet list which she is able to point out with his left hand. He mainly just communicated why he cannot use his right hand. I expressed to him that he ultimately needs to continue with OT order to relax his contracture over time. 09/30: Afebrile. Speech-language pathology to video swallow test Silent aspiration with thin liquid and nectar thick, placed NPO. 10/01: Afebrile overnight. Labs normalized. No pain no shortness of breath he indicates that he would like his teeth brushed. GI unable to place PEG, general surgery consulted. 10/02: Afebrile, no SOB or CP. Asking for food. Thinks it is 1998 and he is incarcerated. Missed doses of mood stabilizing meds. Start ppn and IM geodon. 10/03: Afebrile no shortness of breath or chest pain. Still asking for food or drink. Not passed swallow evaluation. Mood more stable. Discussed with general surgery is concerned about PEG dislodgment and possible long-term peritonitis. G-tube would be his only way to receive nutrition 10/04: Afebrile. No shortness of breath or chest pain. Mood is more stable. S/p g-tube with general surgery More drowsy today. An abdominal binder and plan to initiate surgical G-tube feedings tomorrow on discharge Vitals/I&O Vitals/I&O: Vital Signs Date Time Temp Pulse Resp B/P (MAP) Pulse Ox O2 Delivery O2 Flow Rate FiO2 10/05/20 03:00 97.6 110 14 113/60 (77) 95 Room Air 97.6 10/04/20 19:55 2.0 I & O 10/04/20 10/04/20 10/05/20 15:00 23:00 07:00 Intake Total 50 ml Balance 50 ml Physical Exam General: No acute distress Heart: Regular rate, Normal S1, Normal S2 Abdomen: Soft Assessment and Plan Assessmemt and Plan Problems Medical Problems: (1) Gastrojejunostomy tube dislodgement Status: Acute Comment Review of Relevant I have reviewed the following items laura (where applicable) has been applied. Medications: Current Medications Medications (Trade) Dose Ordered Sig/Moses Route PRN Reason Start Time Stop Time Status Last Admin Dose Admin Fentanyl Citrate (Fentanyl 2ml Vial) 50 mcg 1X ONCE IVP 10/04/20 13:45 10/04/20 13:46 DC 10/04/20 13:05 Justifications for Admission Other Justification Abdominal pain with G-tube dislodgment RY MARSHALL MD Oct 05, 2020 08:30
--- NOTE | 2020-10-05 09:32 | PDOC ---
MEGHAN FRANCOIS APRN 10/05/20 0932: SURGICAL PROGRESS NOTE DATE: 10/05/20 TIME: 09:29 Subjective awake d/w nurse Vital Signs Vital Signs Date Time Temp Pulse Resp B/P (MAP) Pulse Ox O2 Delivery O2 Flow Rate FiO2 10/05/20 07:00 99.2 115 18 123/92 (102) 97 Room Air 99.2 10/04/20 19:55 2.0 I&O Intake and Output 10/05/20 06:59 Intake Total 50 ml Balance 50 ml Intake Oral 50 ml # Voids 2 General: Cooperative Abdomen: Soft, Other (binder in place) Problem List Problems Medical Problems: (1) Gastrojejunostomy tube dislodgement Status: Acute Assessment/Plan ok to start TF tomorrow would keep binder in place to prevent pt dislodging g tube Justicifation of Admission Dx: Justifications for Admission: Justification of Admission Dx: N/A ELVIRA CROOKS MD 10/05/20 1052: SURGICAL PROGRESS NOTE Assessment/Plan Agree with Lois assessment and plan MEGHAN FRANCOIS APRN Oct 05, 2020 09:32 ELVIRA CROOKS MD Oct 05, 2020 10:52
[2020-10-05] MEDS: ENOXAPARIN 40 MG/0.4 ML SYRINGE. SQ SCH (09:40)
[2020-10-05] MEDS: ZIPRASIDONE IM 20 MG VIAL. IM SCH ×2 (09:41→20:54)
[2020-10-05] MEDS: levETIRAcetam 500 MG in IV DEXTROSE 5% 100ML 100 ML IV SCH ×2 (09:48→20:54)
[2020-10-05 11:00] VITALS: BP 109/79
[2020-10-05 15:00] VITALS: BP 127/96
[2020-10-05 19:00] VITALS: BP 120/87
[2020-10-05 23:33] VITALS: BP 114/83
[2020-10-06 03:34] VITALS: BP 110/75
[2020-10-06 07:00] VITALS: BP 112/71
--- NOTE | 2020-10-06 07:15 | PDOC ---
[facility] PROGRESS NOTE Date of Service DOS: DATE: 10/06/20 TIME: 07:14 Chief Complaint Chief Complaint A/P: Gastrostomy tube dislodgement - GI consulted, unable to place. 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 He presents to the ED after his G-tube was accidentally removed and it was and able to be replaced by the nursing staff. Patient is able to mouth and hand gesture some communication but is unable to describe what he wants. He denies any pain or bleeding from the gastric site. Denies fevers, nausea vomiting, abdominal pain, dysuria, diarrhea. Able to communicate partially with him by using an alphabet list which she is able to point out with his left hand. He mainly just communicated why he cannot use his right hand. I expressed to him that he ultimately needs to continue with OT order to relax his contracture over time. 09/30: Afebrile. Speech-language pathology to video swallow test Silent aspiration with thin liquid and nectar thick, placed NPO. 10/01: Afebrile overnight. Labs normalized. No pain no shortness of breath he indicates that he would like his teeth brushed. GI unable to place PEG, general surgery consulted. 10/02: Afebrile, no SOB or CP. Asking for food. Thinks it is 1998 and he is incarcerated. Missed doses of mood stabilizing meds. Start ppn and IM geodon. 10/03: Afebrile no shortness of breath or chest pain. Still asking for food or drink. Not passed swallow evaluation. Mood more stable. Discussed with general surgery is concerned about PEG dislodgment and possible long-term peritonitis. G-tube would be his only way to receive nutrition 10/04: Afebrile. No shortness of breath or chest pain. Mood is more stable. S/p g-tube with general surgery 10/05: More drowsy today. An abdominal binder and plan to initiate surgical G- tube feedings tomorrow on discharge Asking for food again today. Will start using feeding to was on Jevity previously every 6 hours bolus feeds will start slowly with a continuous feeding today increase slowly, add 150 cc water bolus. Vitals/I&O Vitals/I&O: Vital Signs Date Time Temp Pulse Resp B/P (MAP) Pulse Ox O2 Delivery O2 Flow Rate FiO2 10/06/20 03:34 98.9 65 19 110/75 (87) 93 Nasal Cannula 2.0 98.9 I & O 10/05/20 10/05/20 10/06/20 14:59 22:59 06:59 Intake Total 0 ml 0 ml Balance 0 ml 0 ml Physical Exam General: Cooperative Heart: Regular rate, Normal S1, Normal S2 Abdomen: Soft, Other (binder in place) Assessment and Plan Assessmemt and Plan Problems Medical Problems: (1) Gastrojejunostomy tube dislodgement Status: Acute Comment Review of Relevant I have reviewed the following items laura (where applicable) has been applied. Justifications for Admission Other Justification Abdominal pain with G-tube dislodgment RY MARSHALL MD Oct 06, 2020 07:15
[2020-10-06] MEDS: levETIRAcetam 500 MG in IV DEXTROSE 5% 100ML 100 ML IV SCH (09:28)
[2020-10-06] MEDS: ENOXAPARIN 40 MG/0.4 ML SYRINGE. SQ SCH (09:32)
[2020-10-06] MEDS: ZIPRASIDONE IM 20 MG VIAL. IM SCH ×2 (09:34→22:06)
[2020-10-06 11:00] VITALS: BP 114/97
[2020-10-06 14:43] VITALS: BP 119/87
[2020-10-06] MEDS: FAMOTIDINE 20 MG TABLET. PEG SCH (18:16)
[2020-10-06 19:15] VITALS: BP 105/72
[2020-10-06] MEDS ORDERED: ZIPRASIDONE 20 MG CAPSULE PO SCH (21:00)
[2020-10-06] MEDS: levETIRAcetam 500 MG/5 ML ORAL SOLUTION. PEG SCH (22:05)
[2020-10-06] MEDS: risperiDONE 1 MG TABLET. PEG SCH (22:07)
[2020-10-06] MEDS: MIRTAZAPINE 15 MG TABLET PO SCH (22:07)
[2020-10-06] MEDS: traZODone 50 MG TABLET. PEG SCH (22:07)
[2020-10-06 23:23] VITALS: BP 113/74
[2020-10-07 03:31] VITALS: BP 110/70
[2020-10-07 07:00] VITALS: BP_SYST 108; BP_SYST 93; BP_DIAS 48; BP_DIAS 83
--- NOTE | 2020-10-07 09:59 | NUR ---
SW following. Discussed with RN, possible discharge back to [facility] tomorrow (10/08/20) - pt needing to get to feed goal of 55. SW to fax updates to [facility]. SW will continue to follow.
[2020-10-07] MEDS: levETIRAcetam 500 MG/5 ML ORAL SOLUTION. PEG SCH ×2 (10:28→21:29)
[2020-10-07] MEDS: risperiDONE 1 MG TABLET. PEG SCH ×2 (10:29→21:29)
[2020-10-07] MEDS: FAMOTIDINE 20 MG TABLET. PEG SCH (10:29)
[2020-10-07] MEDS: ENOXAPARIN 40 MG/0.4 ML SYRINGE. SQ SCH (10:29)
[2020-10-07] MEDS: ZIPRASIDONE IM 20 MG VIAL. IM SCH ×2 (10:30→21:29)
[2020-10-07 10:50] LABS: BASO % 1 % (0-3); EOS # 0.3 x10^3/uL (0.0-0.7); EOS % 3 % (0-3); HEMATOCRIT 44.6 % (39.0-53.0); HEMOGLOBIN 14.7 g/dL (13.0-17.5); LYMPH # 1.8 x10^3/uL (1.0-4.8); LYMPH % 20 % (24-48); MEAN CORPUSCULAR HEMOGLOBIN 29 pg (25-35); MEAN CORPUSCULAR HGB CONC 33 g/dL (31-37); MEAN CORPUSCULAR VOLUME 89 fL (79-100); MONO % 11 % (0-9); NEUT # 6.1 x10^3/uL (1.8-7.7); NEUT % 66 % (31-73); PLATELET COUNT 327 x10^3/uL (140-400); RED BLOOD COUNT 5.04 x10^6/uL (4.30-5.70); RED CELL DISTRIBUTION WIDTH 13.3 % (11.5-14.5); WHITE BLOOD COUNT 9.3 x10^3/uL (4.0-11.0)
[2020-10-07 11:00] VITALS: BP 105/73
[2020-10-07 11:02] LABS: CALCIUM 9.2 mg/dL (8.5-10.1); CREATININE 0.6 mg/dL (0.7-1.3); GFR 178.8; POTASSIUM 3.7 mmol/L (3.5-5.1)
--- NOTE | 2020-10-07 11:58 | PDOC ---
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 10/07/20 1158: SURGICAL PROGRESS NOTE DATE: 10/07/20 TIME: 11:57 Subjective covered with blankets d/w nursing tolerating TF--increasing rate Vital Signs Vital Signs Date Time Temp Pulse Resp B/P (MAP) Pulse Ox O2 Delivery O2 Flow Rate FiO2 10/07/20 07:50 Room Air 10/07/20 07:00 99.2 106 20 108/83 (91) 93 99.2 10/06/20 14:43 2.0 I&O Intake and Output 10/07/20 07:00 Intake Total 300 ml Balance 300 ml Intake Oral 0 ml Tube Feeding 300 ml # Voids 2 General: Cooperative, No acute distress Abdomen: Soft Labs Laboratory Tests Test 10/07/20 10:00 White Blood Count 9.3 x10^3/uL (4.0-11.0) Red Blood Count 5.04 x10^6/uL (4.30-5.70) Hemoglobin 14.7 g/dL (13.0-17.5) Hematocrit 44.6 % (39.0-53.0) Mean Corpuscular Volume 89 fL (79-100) Mean Corpuscular Hemoglobin 29 pg (25-35) Mean Corpuscular Hemoglobin Concent 33 g/dL (31-37) Red Cell Distribution Width 13.3 % (11.5-14.5) Platelet Count 327 x10^3/uL (140-400) Neutrophils (%) (Auto) 66 % (31-73) Lymphocytes (%) (Auto) 20 % (24-48) Monocytes (%) (Auto) 11 % (0-9) Eosinophils (%) (Auto) 3 % (0-3) Basophils (%) (Auto) 1 % (0-3) Neutrophils # (Auto) 6.1 x10^3/uL (1.8-7.7) Lymphocytes # (Auto) 1.8 x10^3/uL (1.0-4.8) Monocytes # (Auto) 1.0 x10^3/uL (0.0-1.1) Eosinophils # (Auto) 0.3 x10^3/uL (0.0-0.7) Basophils # (Auto) 0.0 x10^3/uL (0.0-0.2) Sodium Level 137 mmol/L (136-145) Potassium Level 3.7 mmol/L (3.5-5.1) Chloride Level 100 mmol/L (98-107) Carbon Dioxide Level 25 mmol/L (21-32) Anion Gap 12 (6-14) Blood Urea Nitrogen 10 mg/dL (8-26) Creatinine 0.6 mg/dL (0.7-1.3) Estimated GFR (Cockcroft-Gault) 178.8 Glucose Level 94 mg/dL (70-99) Calcium Level 9.2 mg/dL (8.5-10.1) Magnesium Level 2.0 mg/dL (1.8-2.4) Laboratory Tests Test 10/07/20 10:00 White Blood Count 9.3 x10^3/uL (4.0-11.0) Red Blood Count 5.04 x10^6/uL (4.30-5.70) Hemoglobin 14.7 g/dL (13.0-17.5) Hematocrit 44.6 % (39.0-53.0) Mean Corpuscular Volume 89 fL (79-100) Mean Corpuscular Hemoglobin 29 pg (25-35) Mean Corpuscular Hemoglobin Concent 33 g/dL (31-37) Red Cell Distribution Width 13.3 % (11.5-14.5) Platelet Count 327 x10^3/uL (140-400) Neutrophils (%) (Auto) 66 % (31-73) Lymphocytes (%) (Auto) 20 % (24-48) Monocytes (%) (Auto) 11 % (0-9) Eosinophils (%) (Auto) 3 % (0-3) Basophils (%) (Auto) 1 % (0-3) Neutrophils # (Auto) 6.1 x10^3/uL (1.8-7.7) Lymphocytes # (Auto) 1.8 x10^3/uL (1.0-4.8) Monocytes # (Auto) 1.0 x10^3/uL (0.0-1.1) Eosinophils # (Auto) 0.3 x10^3/uL (0.0-0.7) Basophils # (Auto) 0.0 x10^3/uL (0.0-0.2) Sodium Level 137 mmol/L (136-145) Potassium Level 3.7 mmol/L (3.5-5.1) Chloride Level 100 mmol/L (98-107) Carbon Dioxide Level 25 mmol/L (21-32) Anion Gap 12 (6-14) Blood Urea Nitrogen 10 mg/dL (8-26) Creatinine 0.6 mg/dL (0.7-1.3) Estimated GFR (Cockcroft-Gault) 178.8 Glucose Level 94 mg/dL (70-99) Calcium Level 9.2 mg/dL (8.5-10.1) Magnesium Level 2.0 mg/dL (1.8-2.4) Problem List Problems Medical Problems: (1) Gastrojejunostomy tube dislodgement Status: Acute Assessment/Plan wear binder to prevent dislodging g tube tf as tolerated will sign off Justicifation of Admission Dx: Justifications for Admission: Justification of Admission Dx: N/A ELVIRA CROOKS MD 10/07/20 1656: SURGICAL PROGRESS NOTE Assessment/Plan Agree with Claudia's assessment and plan EMGHAN FRANCOIS APRN Oct 07, 2020 11:58 ELVIRA CROOKS MD Oct 07, 2020 16:56
--- NOTE | 2020-10-07 14:29 | PDOC ---
[facility] PROGRESS NOTE Date of Service DOS: DATE: 10/07/20 TIME: 14:28 Chief Complaint Chief Complaint A/P: Gastrostomy tube dislodgement - GI consulted, unable to place. 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 He presents to the ED after his G-tube was accidentally removed and it was and able to be replaced by the nursing staff. Patient is able to mouth and hand gesture some communication but is unable to describe what he wants. He denies any pain or bleeding from the gastric site. Denies fevers, nausea vomiting, abdominal pain, dysuria, diarrhea. Able to communicate partially with him by using an alphabet list which she is able to point out with his left hand. He mainly just communicated why he cannot use his right hand. I expressed to him that he ultimately needs to continue with OT order to relax his contracture over time. 09/30: Afebrile. Speech-language pathology to video swallow test Silent aspiration with thin liquid and nectar thick, placed NPO. 10/01: Afebrile overnight. Labs normalized. No pain no shortness of breath he indicates that he would like his teeth brushed. GI unable to place PEG, general surgery consulted. 10/02: Afebrile, no SOB or CP. Asking for food. Thinks it is 1998 and he is incarcerated. Missed doses of mood stabilizing meds. Start ppn and IM geodon. 10/03: Afebrile no shortness of breath or chest pain. Still asking for food or drink. Not passed swallow evaluation. Mood more stable. Discussed with general surgery is concerned about PEG dislodgment and possible long-term peritonitis. G-tube would be his only way to receive nutrition 10/04: Afebrile. No shortness of breath or chest pain. Mood is more stable. S/p g-tube with general surgery 10/05: More drowsy today. An abdominal binder and plan to initiate surgical G- tube feedings tomorrow on discharge 10/06/20 Asking for food again today. Will start using feeding to was on Jevity previously every 6 hours bolus feeds will start slowly with a continuous feeding today increase slowly, add 150 cc water bolus. 10/07/2020 No acute events overnight. Labs have normalized. Patient is only on trickle feeds will attempt to advance continuous feeds to goal and eventually transition to bolus feeds. Despite return to the residential. Patient's chart, labs, images were reviewed and discussed with RN Vitals/I&O Vitals/I&O: Vital Signs Date Time Temp Pulse Resp B/P (MAP) Pulse Ox O2 Delivery O2 Flow Rate FiO2 10/07/20 11:00 98.8 113 20 105/73 (84) 95 Room Air 98.8 10/06/20 14:43 2.0 I & O 10/06/20 10/06/20 10/07/20 15:00 23:00 07:00 Intake Total 0 ml 150 ml 150 ml Balance 0 ml 150 ml 150 ml Physical Exam General: Cooperative, No acute distress Heart: Regular rate, Normal S1, Normal S2 Abdomen: Soft, Other (Abdominal binder in place with G-tube intact. No signs of infection) Labs Labs: Laboratory Tests Test 10/07/20 10:00 White Blood Count 9.3 x10^3/uL (4.0-11.0) Red Blood Count 5.04 x10^6/uL (4.30-5.70) Hemoglobin 14.7 g/dL (13.0-17.5) Hematocrit 44.6 % (39.0-53.0) Mean Corpuscular Volume 89 fL (79-100) Mean Corpuscular Hemoglobin 29 pg (25-35) Mean Corpuscular Hemoglobin Concent 33 g/dL (31-37) Red Cell Distribution Width 13.3 % (11.5-14.5) Platelet Count 327 x10^3/uL (140-400) Neutrophils (%) (Auto) 66 % (31-73) Lymphocytes (%) (Auto) 20 % (24-48) Monocytes (%) (Auto) 11 % (0-9) Eosinophils (%) (Auto) 3 % (0-3) Basophils (%) (Auto) 1 % (0-3) Neutrophils # (Auto) 6.1 x10^3/uL (1.8-7.7) Lymphocytes # (Auto) 1.8 x10^3/uL (1.0-4.8) Monocytes # (Auto) 1.0 x10^3/uL (0.0-1.1) Eosinophils # (Auto) 0.3 x10^3/uL (0.0-0.7) Basophils # (Auto) 0.0 x10^3/uL (0.0-0.2) Sodium Level 137 mmol/L (136-145) Potassium Level 3.7 mmol/L (3.5-5.1) Chloride Level 100 mmol/L (98-107) Carbon Dioxide Level 25 mmol/L (21-32) Anion Gap 12 (6-14) Blood Urea Nitrogen 10 mg/dL (8-26) Creatinine 0.6 mg/dL (0.7-1.3) Estimated GFR (Cockcroft-Gault) 178.8 Glucose Level 94 mg/dL (70-99) Calcium Level 9.2 mg/dL (8.5-10.1) Magnesium Level 2.0 mg/dL (1.8-2.4) Assessment and Plan Assessmemt and Plan Problems Medical Problems: (1) Gastrojejunostomy tube dislodgement Status: Acute Comment Review of Relevant I have reviewed the following items laura (where applicable) has been applied. Medications: Current Medications Medications (Trade) Dose Ordered Sig/Moses Route PRN Reason Start Time Stop Time Status Last Admin Dose Admin Levetiracetam (Keppra Oral Soln) 500 mg BID PEG 10/06/20 21:00 10/07/20 10:28 Risperidone (RisperDAL) 1 mg BID PEG 10/06/20 21:00 10/07/20 10:29 Trazodone HCl (Desyrel) 50 mg HS PEG 10/06/20 21:00 10/06/20 22:07 Mirtazapine (Remeron) 30 mg QHS PO 10/06/20 21:00 10/06/20 22:07 Ziprasidone (Geodon Im) 10 mg BID IM 10/06/20 21:30 10/07/20 10:30 Justifications for Admission Other Justification Abdominal pain with G-tube dislodgment EMILY MCELROY MD Oct 07, 2020 14:29
[2020-10-07 15:00] VITALS: BP 95/68
--- NOTE | 2020-10-07 16:09 | PDOC ---
G I PROGRESS NOTE Reason for Follow-up Oropharyngeal dysphagia s/p tube dislodgement Subjective Tolerating tube feedings via surgical g tube Physical Exam Lungs clear CV S1 S2 ABD +BS, soft, G tube site covered Review of Relevant I have reviewed the following items laura (where applicable) has been applied. Labs Laboratory Tests Test 10/07/20 10:00 White Blood Count 9.3 x10^3/uL (4.0-11.0) Red Blood Count 5.04 x10^6/uL (4.30-5.70) Hemoglobin 14.7 g/dL (13.0-17.5) Hematocrit 44.6 % (39.0-53.0) Mean Corpuscular Volume 89 fL (79-100) Mean Corpuscular Hemoglobin 29 pg (25-35) Mean Corpuscular Hemoglobin Concent 33 g/dL (31-37) Red Cell Distribution Width 13.3 % (11.5-14.5) Platelet Count 327 x10^3/uL (140-400) Neutrophils (%) (Auto) 66 % (31-73) Lymphocytes (%) (Auto) 20 % (24-48) Monocytes (%) (Auto) 11 % (0-9) Eosinophils (%) (Auto) 3 % (0-3) Basophils (%) (Auto) 1 % (0-3) Neutrophils # (Auto) 6.1 x10^3/uL (1.8-7.7) Lymphocytes # (Auto) 1.8 x10^3/uL (1.0-4.8) Monocytes # (Auto) 1.0 x10^3/uL (0.0-1.1) Eosinophils # (Auto) 0.3 x10^3/uL (0.0-0.7) Basophils # (Auto) 0.0 x10^3/uL (0.0-0.2) Sodium Level 137 mmol/L (136-145) Potassium Level 3.7 mmol/L (3.5-5.1) Chloride Level 100 mmol/L (98-107) Carbon Dioxide Level 25 mmol/L (21-32) Anion Gap 12 (6-14) Blood Urea Nitrogen 10 mg/dL (8-26) Creatinine 0.6 mg/dL (0.7-1.3) Estimated GFR (Cockcroft-Gault) 178.8 Glucose Level 94 mg/dL (70-99) Calcium Level 9.2 mg/dL (8.5-10.1) Magnesium Level 2.0 mg/dL (1.8-2.4) Laboratory Tests Test 10/07/20 10:00 White Blood Count 9.3 x10^3/uL (4.0-11.0) Red Blood Count 5.04 x10^6/uL (4.30-5.70) Hemoglobin 14.7 g/dL (13.0-17.5) Hematocrit 44.6 % (39.0-53.0) Mean Corpuscular Volume 89 fL (79-100) Mean Corpuscular Hemoglobin 29 pg (25-35) Mean Corpuscular Hemoglobin Concent 33 g/dL (31-37) Red Cell Distribution Width 13.3 % (11.5-14.5) Platelet Count 327 x10^3/uL (140-400) Neutrophils (%) (Auto) 66 % (31-73) Lymphocytes (%) (Auto) 20 % (24-48) Monocytes (%) (Auto) 11 % (0-9) Eosinophils (%) (Auto) 3 % (0-3) Basophils (%) (Auto) 1 % (0-3) Neutrophils # (Auto) 6.1 x10^3/uL (1.8-7.7) Lymphocytes # (Auto) 1.8 x10^3/uL (1.0-4.8) Monocytes # (Auto) 1.0 x10^3/uL (0.0-1.1) Eosinophils # (Auto) 0.3 x10^3/uL (0.0-0.7) Basophils # (Auto) 0.0 x10^3/uL (0.0-0.2) Sodium Level 137 mmol/L (136-145) Potassium Level 3.7 mmol/L (3.5-5.1) Chloride Level 100 mmol/L (98-107) Carbon Dioxide Level 25 mmol/L (21-32) Anion Gap 12 (6-14) Blood Urea Nitrogen 10 mg/dL (8-26) Creatinine 0.6 mg/dL (0.7-1.3) Estimated GFR (Cockcroft-Gault) 178.8 Glucose Level 94 mg/dL (70-99) Calcium Level 9.2 mg/dL (8.5-10.1) Magnesium Level 2.0 mg/dL (1.8-2.4) Medications Current Medications Hydromorphone HCl (Dilaudid) 1 mg 1X ONCE IM Last administered on 09/28/20at 20:31; Start 09/28/20 at 20:30; Stop 09/28/20 at 20:31; Status DC Lidocaine HCl (Glydo (Lidocaine) Jelly) 1 haim 1X ONCE MM Last administered on 09/28/20at 20:30; Start 09/28/20 at 20:30; Stop 09/28/20 at 20:31; Status DC Sodium Chloride 1,000 ml @ 1,000 mls/hr 1X ONCE IV Last administered on 09/29/20at 10:27; Start 09/28/20 at 21:30; Stop 09/28/20 at 22:29; Status DC Iohexol (Omnipaque 300 Mg/ml) 75 ml 1X ONCE IV Last administered on 09/28/20at 23:23; Start 09/28/20 at 23:00; Stop 09/28/20 at 23:01; Status DC Info (CONTRAST GIVEN -- Rx MONITORING) 1 each PRN DAILY PRN MC SEE COMMENTS; Start 09/28/20 at 22:45; Stop 09/30/20 at 22:44; Status DC Sennosides (Senna) 17.2 mg PRN BID PRN PO CONSTIPATION; Start 09/29/20 at 08:00 Docusate Sodium (Colace) 100 mg PRN DAILY PRN PO HARD STOOLS; Start 09/29/20 at 08:00 Thiamine HCl 100 mg/Dextrose 51 ml @ 102 mls/hr DAILY IV Last administered on 10/02/20at 08:53; Start 09/29/20 at 09:00; Stop 10/02/20 at 11:21; Status DC Ondansetron HCl (Zofran) 4 mg PRN Q6HRS PRN IVP NAUSEA/VOMITING; Start 09/29/20 at 08:00 Dextrose (Dextrose 50%-Water Syringe) 12.5 gm PRN Q15MIN PRN IV SEE COMMENTS; Start 09/29/20 at 08:00 Dextrose/Sodium Chloride 1,000 ml @ 100 mls/hr Q10H IV Last administered on 10/02/20at 06:01; Start 09/29/20 at 08:00; Stop 10/02/20 at 11:22; Status DC Acetaminophen (Tylenol) 650 mg PRN Q4HRS PRN PO TEMP OVER 100.4F OR MILD PAIN Last administered on 10/07/20at 10:29; Start 09/29/20 at 08:00 Enoxaparin Sodium (Lovenox 40mg Syringe) 40 mg Q24H SQ Last administered on 10/07/20at 10:29; Start 09/29/20 at 09:00 Morphine Sulfate (Morphine Sulfate) 1 mg PRN Q1HR PRN IV PAIN; Start 09/29/20 at 08:00 Morphine Sulfate (Morphine Sulfate) 2 mg PRN Q2HR PRN IVP SEVERE PAIN 7-10; Start 09/29/20 at 08:00; Stop 09/30/20 at 07:59; Status DC Prochlorperazine Edisylate (Compazine) 10 mg PRN Q6HRS PRN IV NAUSEA/VOMITING; Start 09/29/20 at 08:00; Status UNV Barium Sulfate (Varibar Thin Liquid Apple) 148 gm 1X ONCE PO Last administered on 09/30/20at 12:45; Start 09/30/20 at 10:00; Stop 09/30/20 at 10:01; Status DC Ringer's Solution 1,000 ml @ 75 mls/hr 1X ONCE IV Last administered on 10/01/20at 10:45; Start 10/01/20 at 10:45; Stop 10/02/20 at 00:04; Status DC Propofol (Diprivan) 200 mg STK-MED ONCE IV ; Start 10/01/20 at 12:05; Stop 10/01/20 at 12:06; Status DC Cefazolin Sodium/ Dextrose 50 ml @ 100 mls/hr 1X ONCE IV ; Start 10/01/20 at 13:15; Stop 10/01/20 at 13:44; Status DC Cefazolin Sodium/ Dextrose 50 ml @ As Directed STK-MED ONCE IV ; Start 10/01/20 at 13:08; Stop 10/01/20 at 13:09; Status DC Propofol (Diprivan) 200 mg STK-MED ONCE IV ; Start 10/01/20 at 13:36; Stop 10/01/20 at 13:37; Status DC Amino Acids/ Electrolytes/ Dextrose 1,000 ml @ 80 mls/hr [id number] IV Last administered on 10/04/20at 15:02; Start 10/02/20 at 11:30; Stop 10/05/20 at 01:59; Status DC Levetiracetam 500 mg/Dextrose 105 ml @ 420 mls/hr Q12HR IV Last administered on 10/06/20at 09:28; Start 10/02/20 at 12:00; Stop 10/06/20 at 10:03; Status DC Ziprasidone (Geodon Im) 10 mg BID IM Last administered on 10/06/20at 09:34; Start 10/02/20 at 13:30; Stop 10/06/20 at 10:03; Status DC Cefazolin Sodium/ Dextrose (Ancef 2gm Premix) 2 gm STK-MED ONCE IV ; Start 10/01/20 at 12:00; Stop 10/03/20 at 08:54; Status DC Rocuronium [place] (Zemuron) 50 mg STK-MED ONCE .ROUTE ; Start 10/04/20 at 08:27; Stop 10/04/20 at 08:27; Status DC Propofol (Diprivan) 200 mg STK-MED ONCE IV ; Start 10/04/20 at 08:27; Stop 10/04/20 at 08:27; Status DC Lidocaine HCl (Lidocaine Pf 2% Vial) 5 ml STK-MED ONCE .ROUTE ; Start 10/04/20 at 08:27; Stop 10/04/20 at 08:27; Status DC Dexamethasone Sodium Phosphate (Decadron) 4 mg STK-MED ONCE .ROUTE ; Start 10/04/20 at 08:27; Stop 10/04/20 at 08:27; Status DC Ondansetron HCl (Zofran) 4 mg STK-MED ONCE .ROUTE ; Start 10/04/20 at 08:27; Stop 10/04/20 at 08:28; Status DC Cefazolin Sodium/ Dextrose 50 ml @ As Directed STK-MED ONCE IV ; Start 10/04/20 at 11:38; Stop 10/04/20 at 11:38; Status DC Bupivacaine HCl/ Epinephrine Bitart (Sensorcain-Epi 0.5% Kit) 30 ml STK-MED ONCE .ROUTE ; Start 10/04/20 at 11:39; Stop 10/04/20 at 11:39; Status DC Propofol (Diprivan) 200 mg STK-MED ONCE IV ; Start 10/04/20 at 12:45; Stop 10/04/20 at 12:46; Status DC Propofol (Diprivan) 200 mg STK-MED ONCE IV ; Start 10/04/20 at 12:45; Stop 10/04/20 at 12:46; Status DC Fentanyl Citrate (Fentanyl 2ml Vial) 100 mcg STK-MED ONCE .ROUTE ; Start 10/04/20 at 13:01; Stop 10/04/20 at 13:01; Status DC Fentanyl Citrate (Fentanyl 2ml Vial) 50 mcg 1X ONCE IVP Last administered on 10/04/20at 13:05; Start 10/04/20 at 13:45; Stop 10/04/20 at 13:46; Status DC Famotidine (Pepcid) 20 mg DAILY PEG Last administered on 10/07/20at 10:29; Start 10/06/20 at 10:00 Levetiracetam (Keppra Oral Soln) 500 mg BID PEG Last administered on 10/07/20at 10:28; Start 10/06/20 at 21:00 Risperidone (RisperDAL) 1 mg BID PEG Last administered on 10/07/20at 10:29; Start 10/06/20 at 21:00 Trazodone HCl (Desyrel) 50 mg HS PEG Last administered on 10/06/20at 22:07; Start 10/06/20 at 21:00 Ziprasidone (Geodon) 20 mg BID PO ; Start 10/06/20 at 21:00; Stop 10/06/20 at 21:26; Status DC Mirtazapine (Remeron) 30 mg QHS PO Last administered on 10/06/20at 22:07; Start 10/06/20 at 21:00 Ziprasidone (Geodon Im) 10 mg BID IM Last administered on 10/07/20at 10:30; Start 10/06/20 at 21:30 Active Scripts Active Reported Zoloft (Sertraline Hcl) 100 Mg Tablet 1 Tab PEG DAILY Risperdal (Risperidone) 1 Mg Tablet 1 Mg PEG BID Keppra (Levetiracetam) 100 Mg/1 Ml Solution 5 Ml PEG BID 30 Days Remeron (Mirtazapine) 30 Mg Tablet 1 Tab PEG QHS Famotidine 20 Mg Tablet 20 Mg PEG DAILY Baclofen 20 Mg Tablet 20 Mg PEG QID Trazodone Hcl 50 Mg Tablet 50 Mg PO HS Geodon (Ziprasidone Hcl) 20 Mg Capsule 20 Mg PO Unable To Obtain Meds From Prior To Admit (Info) Each 1 Each Vitals/I & O Vital Sign - Last 24 Hours 10/06/20 10/06/20 10/06/20 10/07/20 19:15 20:00 23:23 03:31 Temp 99.5 97.7 97.8 99.5 97.7 97.8 Pulse 110 115 97 Resp 20 18 18 B/P (MAP) 105/72 (83) 113/74 (87) 110/70 (83) Pulse Ox 95 91 96 O2 Delivery Room Air Room Air Room Air Room Air 10/07/20 10/07/20 10/07/20 10/07/20 07:00 07:50 11:00 15:00 Temp 99.2 98.8 98.1 99.2 98.8 98.1 Pulse 106 113 98 Resp 20 20 18 B/P (MAP) 108/83 (91) 105/73 (84) 95/68 (77) Pulse Ox 93 95 97 O2 Delivery Room Air Room Air Room Air Room Air Intake and Output0 10/06/20 10/06/20 10/07/20 15:00 23:00 07:00 Intake Total 0 ml 150 ml 150 ml Balance 0 ml 150 ml 150 ml Problem List Problems Medical Problems: (1) Gastrojejunostomy tube dislodgement Status: Acute Assessment Oropharyngeal dysphagia- s/p surgical G tube placement, toleratiing feedings. cpm, disposition plans per primary Justicifation of Admission Dx: Justifications for Admission: Justification of Admission Dx: N/A PONCE CASEY MD Oct 07, 2020 16:09
[2020-10-07 19:00] VITALS: BP 110/80
[2020-10-07] MEDS: traZODone 50 MG TABLET. PEG SCH (21:29)
[2020-10-07] MEDS: MIRTAZAPINE 15 MG TABLET PO SCH (21:29)
[2020-10-07 23:00] VITALS: BP 108/74
[2020-10-08 03:00] VITALS: BP 112/78
[2020-10-08 07:00] VITALS: BP 113/79
--- NOTE | 2020-10-08 07:58 | SNU/HH DC ---
DISCHARGE ORDERS DISCHARGE INFORMATION: DISCHARGE DATE: Oct 08, 2020 FINAL DIAGNOSIS Problems Medical Problems: (1) Gastrojejunostomy tube dislodgement Status: Acute CONDITION ON DISCHARGE: Guarded CODE STATUS: Code Status: Full DETENTION: SNF STAY <30 DAYS: Yes POST DISCHARGE ORDERS: ACTIVITY ORDERS: Activity as tolerated WEIGHT BEARING STATUS: As tolerated WOUND/INCISION CARE: Do not change dressing, Other, see below (Please keep abdominal binder over G-tube when not giving feeds.) CHECKS AFTER DISCHARGE: CHECKS AFTER DISCHARGE: Check blood press - daily, Weigh Yourself Daily FOLLOW-UP: PHYSICIAN FOLLOW-UP: PCP within 2 weeks of discharge ADDITIONAL FOLLOW-UP: Gastroenterology as needed LAB ORDERS FOR FOLLOW-UP: CBC, CMP, albumin TREATMENT/EQUIPMENT ORDERS: Physical Therapy For: Evalulation/Treatment (Left sided contractures) Occupational Therapy For: Evaluation/Treatment (Left-sided contractures) Speech Language Pathology For: Evaluation/Treatment DISCHARGE MEDICATIONS: Home Meds Reported Medications Sertraline Hcl (ZOLOFT) 100 Mg Tablet, 1 TAB PEG DAILY for depression, #30 TAB 5 Refills 09/29/20 Risperidone (RISPERDAL) 1 Mg Tablet, 1 MG PEG BID for MOOD STABILIZER, TAB 09/29/20 Levetiracetam (KEPPRA) 100 Mg/1 Ml Solution, 5 ML PEG BID for seizures for 30 Days, #300 ML 0 Refills 09/29/20 Mirtazapine (REMERON) 30 Mg Tablet, 1 TAB PEG QHS for depressed, #30 TAB 2 Refills 09/29/20 Famotidine (FAMOTIDINE) 20 Mg Tablet, 20 MG PEG DAILY for gerd, TAB 09/29/20 Baclofen (BACLOFEN) 20 Mg Tablet, 20 MG PEG QID for MUSCLE RELAXER, #30 TAB 0 Refills 09/29/20 Trazodone Hcl (TRAZODONE HCL) 50 Mg Tablet, 50 MG PO HS, TAB 03/31/14 Ziprasidone Hcl (GEODON) 20 Mg Capsule, 20 MG PO 03/31/14 Info (UNABLE TO OBTAIN MEDS FROM PRIOR TO ADMIT) Each, 1 EACH , EACH 09/05/13 EMILY MCELROY MD Oct 08, 2020 07:58
--- NOTE | 2020-10-08 10:02 | NUR ---
SW following. Discussed with RN, discharge orders faxed to [facility]. Stretcher transportation arranged by [facility] for between [phone]. RN notified.
[2020-10-08] MEDS: FAMOTIDINE 20 MG TABLET. PEG SCH (10:29)
[2020-10-08] MEDS: levETIRAcetam 500 MG/5 ML ORAL SOLUTION. PEG SCH (10:29)
[2020-10-08] MEDS: ENOXAPARIN 40 MG/0.4 ML SYRINGE. SQ SCH (10:29)
[2020-10-08] MEDS: risperiDONE 1 MG TABLET. PEG SCH (10:29)
[2020-10-08] MEDS: ZIPRASIDONE IM 20 MG VIAL. IM SCH (10:30)
[2020-10-08 11:00] VITALS: BP 109/76
--- NOTE | 2020-10-08 12:57 | PDOC ---
G I PROGRESS NOTE Reason for Follow-up Oropharyngeal dysphagia s/p g tube replacement Subjective Without new complaints Physical Exam Lungs decreased BS CV S1 S2 tachy ABD +BS hypoactive, midly distended, G tube covered with velcro binder Review of Relevant I have reviewed the following items laura (where applicable) has been applied. Labs Laboratory Tests Test 10/07/20 10:00 White Blood Count 9.3 x10^3/uL (4.0-11.0) Red Blood Count 5.04 x10^6/uL (4.30-5.70) Hemoglobin 14.7 g/dL (13.0-17.5) Hematocrit 44.6 % (39.0-53.0) Mean Corpuscular Volume 89 fL (79-100) Mean Corpuscular Hemoglobin 29 pg (25-35) Mean Corpuscular Hemoglobin Concent 33 g/dL (31-37) Red Cell Distribution Width 13.3 % (11.5-14.5) Platelet Count 327 x10^3/uL (140-400) Neutrophils (%) (Auto) 66 % (31-73) Lymphocytes (%) (Auto) 20 % (24-48) Monocytes (%) (Auto) 11 % (0-9) Eosinophils (%) (Auto) 3 % (0-3) Basophils (%) (Auto) 1 % (0-3) Neutrophils # (Auto) 6.1 x10^3/uL (1.8-7.7) Lymphocytes # (Auto) 1.8 x10^3/uL (1.0-4.8) Monocytes # (Auto) 1.0 x10^3/uL (0.0-1.1) Eosinophils # (Auto) 0.3 x10^3/uL (0.0-0.7) Basophils # (Auto) 0.0 x10^3/uL (0.0-0.2) Sodium Level 137 mmol/L (136-145) Potassium Level 3.7 mmol/L (3.5-5.1) Chloride Level 100 mmol/L (98-107) Carbon Dioxide Level 25 mmol/L (21-32) Anion Gap 12 (6-14) Blood Urea Nitrogen 10 mg/dL (8-26) Creatinine 0.6 mg/dL (0.7-1.3) Estimated GFR (Cockcroft-Gault) 178.8 Glucose Level 94 mg/dL (70-99) Calcium Level 9.2 mg/dL (8.5-10.1) Magnesium Level 2.0 mg/dL (1.8-2.4) Medications Current Medications Hydromorphone HCl (Dilaudid) 1 mg 1X ONCE IM Last administered on 09/28/20at 20:31; Start 09/28/20 at 20:30; Stop 09/28/20 at 20:31; Status DC Lidocaine HCl (Glydo (Lidocaine) Jelly) 1 haim 1X ONCE MM Last administered on 09/28/20at 20:30; Start 09/28/20 at 20:30; Stop 09/28/20 at 20:31; Status DC Sodium Chloride 1,000 ml @ 1,000 mls/hr 1X ONCE IV Last administered on 09/29/20at 10:27; Start 09/28/20 at 21:30; Stop 09/28/20 at 22:29; Status DC Iohexol (Omnipaque 300 Mg/ml) 75 ml 1X ONCE IV Last administered on 09/28/20at 23:23; Start 09/28/20 at 23:00; Stop 09/28/20 at 23:01; Status DC Info (CONTRAST GIVEN -- Rx MONITORING) 1 each PRN DAILY PRN MC SEE COMMENTS; Start 09/28/20 at 22:45; Stop 09/30/20 at 22:44; Status DC Sennosides (Senna) 17.2 mg PRN BID PRN PO CONSTIPATION; Start 09/29/20 at 08:00 Docusate Sodium (Colace) 100 mg PRN DAILY PRN PO HARD STOOLS; Start 09/29/20 at 08:00 Thiamine HCl 100 mg/Dextrose 51 ml @ 102 mls/hr DAILY IV Last administered on 10/02/20at 08:53; Start 09/29/20 at 09:00; Stop 10/02/20 at 11:21; Status DC Ondansetron HCl (Zofran) 4 mg PRN Q6HRS PRN IVP NAUSEA/VOMITING; Start 09/29/20 at 08:00 Dextrose (Dextrose 50%-Water Syringe) 12.5 gm PRN Q15MIN PRN IV SEE COMMENTS; Start 09/29/20 at 08:00 Dextrose/Sodium Chloride 1,000 ml @ 100 mls/hr Q10H IV Last administered on 10/02/20at 06:01; Start 09/29/20 at 08:00; Stop 10/02/20 at 11:22; Status DC Acetaminophen (Tylenol) 650 mg PRN Q4HRS PRN PO TEMP OVER 100.4F OR MILD PAIN Last administered on 10/07/20at 10:29; Start 09/29/20 at 08:00 Enoxaparin Sodium (Lovenox 40mg Syringe) 40 mg Q24H SQ Last administered on 10/08/20at 10:29; Start 09/29/20 at 09:00 Morphine Sulfate (Morphine Sulfate) 1 mg PRN Q1HR PRN IV PAIN; Start 09/29/20 at 08:00 Morphine Sulfate (Morphine Sulfate) 2 mg PRN Q2HR PRN IVP SEVERE PAIN 7-10; Start 09/29/20 at 08:00; Stop 09/30/20 at 07:59; Status DC Prochlorperazine Edisylate (Compazine) 10 mg PRN Q6HRS PRN IV NAUSEA/VOMITING; Start 09/29/20 at 08:00; Status UNV Barium Sulfate (Varibar Thin Liquid Apple) 148 gm 1X ONCE PO Last administered on 09/30/20at 12:45; Start 09/30/20 at 10:00; Stop 09/30/20 at 10:01; Status DC Ringer's Solution 1,000 ml @ 75 mls/hr 1X ONCE IV Last administered on 10/01/20at 10:45; Start 10/01/20 at 10:45; Stop 10/02/20 at 00:04; Status DC Propofol (Diprivan) 200 mg STK-MED ONCE IV ; Start 10/01/20 at 12:05; Stop 10/01/20 at 12:06; Status DC Cefazolin Sodium/ Dextrose 50 ml @ 100 mls/hr 1X ONCE IV ; Start 10/01/20 at 13:15; Stop 10/01/20 at 13:44; Status DC Cefazolin Sodium/ Dextrose 50 ml @ As Directed STK-MED ONCE IV ; Start 10/01/20 at 13:08; Stop 10/01/20 at 13:09; Status DC Propofol (Diprivan) 200 mg STK-MED ONCE IV ; Start 10/01/20 at 13:36; Stop 10/01/20 at 13:37; Status DC Amino Acids/ Electrolytes/ Dextrose 1,000 ml @ 80 mls/hr [id number] IV Last administered on 10/04/20at 15:02; Start 10/02/20 at 11:30; Stop 10/05/20 at 01:59; Status DC Levetiracetam 500 mg/Dextrose 105 ml @ 420 mls/hr Q12HR IV Last administered on 10/06/20at 09:28; Start 10/02/20 at 12:00; Stop 10/06/20 at 10:03; Status DC Ziprasidone (Geodon Im) 10 mg BID IM Last administered on 10/06/20at 09:34; Start 10/02/20 at 13:30; Stop 10/06/20 at 10:03; Status DC Cefazolin Sodium/ Dextrose (Ancef 2gm Premix) 2 gm STK-MED ONCE IV ; Start 10/01/20 at 12:00; Stop 10/03/20 at 08:54; Status DC Rocuronium [place] (Zemuron) 50 mg STK-MED ONCE .ROUTE ; Start 10/04/20 at 08:27; Stop 10/04/20 at 08:27; Status DC Propofol (Diprivan) 200 mg STK-MED ONCE IV ; Start 10/04/20 at 08:27; Stop 10/04/20 at 08:27; Status DC Lidocaine HCl (Lidocaine Pf 2% Vial) 5 ml STK-MED ONCE .ROUTE ; Start 10/04/20 at 08:27; Stop 10/04/20 at 08:27; Status DC Dexamethasone Sodium Phosphate (Decadron) 4 mg STK-MED ONCE .ROUTE ; Start 10/04/20 at 08:27; Stop 10/04/20 at 08:27; Status DC Ondansetron HCl (Zofran) 4 mg STK-MED ONCE .ROUTE ; Start 10/04/20 at 08:27; Stop 10/04/20 at 08:28; Status DC Cefazolin Sodium/ Dextrose 50 ml @ As Directed STK-MED ONCE IV ; Start 10/04/20 at 11:38; Stop 10/04/20 at 11:38; Status DC Bupivacaine HCl/ Epinephrine Bitart (Sensorcain-Epi 0.5% Kit) 30 ml STK-MED ONCE .ROUTE ; Start 10/04/20 at 11:39; Stop 10/04/20 at 11:39; Status DC Propofol (Diprivan) 200 mg STK-MED ONCE IV ; Start 10/04/20 at 12:45; Stop 10/04/20 at 12:46; Status DC Propofol (Diprivan) 200 mg STK-MED ONCE IV ; Start 10/04/20 at 12:45; Stop 10/04/20 at 12:46; Status DC Fentanyl Citrate (Fentanyl 2ml Vial) 100 mcg STK-MED ONCE .ROUTE ; Start 10/04/20 at 13:01; Stop 10/04/20 at 13:01; Status DC Fentanyl Citrate (Fentanyl 2ml Vial) 50 mcg 1X ONCE IVP Last administered on 10/04/20at 13:05; Start 10/04/20 at 13:45; Stop 10/04/20 at 13:46; Status DC Famotidine (Pepcid) 20 mg DAILY PEG Last administered on 10/08/20at 10:29; Start 10/06/20 at 10:00 Levetiracetam (Keppra Oral Soln) 500 mg BID PEG Last administered on 10/08/20at 10:29; Start 10/06/20 at 21:00 Risperidone (RisperDAL) 1 mg BID PEG Last administered on 10/08/20at 10:29; Start 10/06/20 at 21:00 Trazodone HCl (Desyrel) 50 mg HS PEG Last administered on 10/07/20at 21:29; Start 10/06/20 at 21:00 Ziprasidone (Geodon) 20 mg BID PO ; Start 10/06/20 at 21:00; Stop 10/06/20 at 21:26; Status DC Mirtazapine (Remeron) 30 mg QHS PO Last administered on 10/07/20at 21:29; Start 10/06/20 at 21:00 Ziprasidone (Geodon Im) 10 mg BID IM Last administered on 10/08/20at 10:30; Start 10/06/20 at 21:30 Active Scripts Active Reported Zoloft (Sertraline Hcl) 100 Mg Tablet 1 Tab PEG DAILY Risperdal (Risperidone) 1 Mg Tablet 1 Mg PEG BID Keppra (Levetiracetam) 100 Mg/1 Ml Solution 5 Ml PEG BID 30 Days Remeron (Mirtazapine) 30 Mg Tablet 1 Tab PEG QHS Famotidine 20 Mg Tablet 20 Mg PEG DAILY Baclofen 20 Mg Tablet 20 Mg PEG QID Trazodone Hcl 50 Mg Tablet 50 Mg PO HS Geodon (Ziprasidone Hcl) 20 Mg Capsule 20 Mg PO Unable To Obtain Meds From Prior To Admit (Info) Each 1 Each Vitals/I & O Vital Sign - Last 24 Hours 10/07/20 10/07/20 10/07/20 10/07/20 15:00 19:00 20:00 23:00 Temp 98.1 98.4 98.8 98.1 98.4 98.8 Pulse 98 109 104 Resp 18 18 B/P (MAP) 95/68 (77) 110/80 (90) 108/74 (85) Pulse Ox 97 95 94 O2 Delivery Room Air Room Air Room Air Room Air 10/08/20 10/08/20 10/08/20 10/08/20 03:00 07:00 08:00 11:00 Temp 98.6 97.8 97.6 98.6 97.8 97.6 Pulse 101 117 121 Resp 19 B/P (MAP) 112/78 (89) 113/79 (90) 109/76 (87) Pulse Ox 93 93 96 O2 Delivery Room Air Room Air Room Air Room Air Intake and Output 10/07/20 10/07/20 10/08/20 14:59 22:59 06:59 Intake Total 150 ml 150 ml 150 ml Balance 150 ml 150 ml 150 ml Problem List Problems Medical Problems: (1) Gastrojejunostomy tube dislodgement Status: Acute Assessment Orophayrngeal dysphagia- s/p surgical g tube for chronic aspiration and repeated G tube dislodgements, further work-up of tacycardia per primary, cpm Justicifation of Admission Dx: Justifications for Admission: Justification of Admission Dx: N/A PONCE CASEY MD Oct 08, 2020 12:57
--- NOTE | 2020-10-08 14:46 | NUR ---
Pt discharged back to [facility]. Called and gave report to Marsha. IV removed.
--- NOTE | 2020-10-10 17:24 | PDOC3 ---
[facility]-Discharge Summary Date of Admission: Date of Admission: Sep 29, 2020 Date of Discharge: Date of Discharge: Oct 08, 2020 Discharge Diagnosis: Discharge Diagnosis: Gastrostomy tube dislodgement - GI consulted, unable to place. 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 He presents to the ED after his G-tube was accidentally removed and it was and able to be replaced by the nursing staff. Patient is able to mouth and hand gesture some communication but is unable to describe what he wants. He denies any pain or bleeding from the gastric site. Denies fevers, nausea vomiting, abdominal pain, dysuria, diarrhea. Able to communicate partially with him by using an alphabet list which she is able to point out with his left hand. He mainly just communicated why he cannot use his right hand. I expressed to him that he ultimately needs to continue with OT order to relax his contracture over time. 09/30: Afebrile. Speech-language pathology to video swallow test Silent aspiration with thin liquid and nectar thick, placed NPO. 10/01: Afebrile overnight. Labs normalized. No pain no shortness of breath he indicates that he would like his teeth brushed. GI unable to place PEG, general surgery consulted. 10/02: Afebrile, no SOB or CP. Asking for food. Thinks it is 1998 and he is incarcerated. Missed doses of mood stabilizing meds. Start ppn and IM geodon. 10/03: Afebrile no shortness of breath or chest pain. Still asking for food or drink. Not passed swallow evaluation. Mood more stable. Discussed with general surgery is concerned about PEG dislodgment and possible long-term peritonitis. G-tube would be his only way to receive nutrition 10/04: Afebrile. No shortness of breath or chest pain. Mood is more stable. S/p g-tube with general surgery 10/05: More drowsy today. An abdominal binder and plan to initiate surgical G- tube feedings tomorrow on discharge 10/06/20 Asking for food again today. Will start using feeding to was on Jevity previously every 6 hours bolus feeds will start slowly with a continuous feeding today increase slowly, add 150 cc water bolus. 10/07/2020 No acute events overnight. Labs have normalized. Patient is only on trickle feeds will attempt to advance continuous feeds to goal and eventually transition to bolus feeds. Despite return to the longterm. Patient's chart, labs, images were reviewed and discussed with RN Disposition: Disposition/Orders: D/C to Another Facility Activity: Activity: Resume previous activity Diet: Diet: NPO Medications: Home Meds Reported Medications Sertraline Hcl (ZOLOFT) 100 Mg Tablet, 1 TAB PEG DAILY for depression, #30 TAB 5 Refills 09/29/20 Risperidone (RISPERDAL) 1 Mg Tablet, 1 MG PEG BID for MOOD STABILIZER, TAB 09/29/20 Levetiracetam (KEPPRA) 100 Mg/1 Ml Solution, 5 ML PEG BID for seizures for 30 Days, #300 ML 0 Refills 09/29/20 Mirtazapine (REMERON) 30 Mg Tablet, 1 TAB PEG QHS for depressed, #30 TAB 2 Refills 09/29/20 Famotidine (FAMOTIDINE) 20 Mg Tablet, 20 MG PEG DAILY for gerd, TAB 09/29/20 Baclofen (BACLOFEN) 20 Mg Tablet, 20 MG PEG QID for MUSCLE RELAXER, #30 TAB 0 Refills 09/29/20 Trazodone Hcl (TRAZODONE HCL) 50 Mg Tablet, 50 MG PO HS, TAB 03/31/14 Ziprasidone Hcl (GEODON) 20 Mg Capsule, 20 MG PO 03/31/14 Info (UNABLE TO OBTAIN MEDS FROM PRIOR TO ADMIT) Each, 1 EACH , EACH 09/05/13 Scheduled Baclofen (Baclofen), 20 MG PEG QID, (Reported) Famotidine (Famotidine), 20 MG PEG DAILY, (Reported) Levetiracetam (Keppra), 5 ML PEG BID, (Reported) Mirtazapine (Remeron), 1 TAB PEG QHS, (Reported) Risperidone (Risperdal), 1 MG PEG BID, (Reported) Sertraline Hcl (Zoloft), 1 TAB PEG DAILY, (Reported) Trazodone Hcl (Trazodone Hcl), 50 MG PO HS, (Reported) Miscellaneous Medications Info (Unable To Obtain Meds From Prior To Admit), 1 EACH , (Reported) Ziprasidone Hcl (Geodon), 20 MG PO, (Reported) Total Time: Total Time: Total time spent was 40 minutes in preparing scripts, discharge planning with SW and RN, and preparing this discharge summary. Patient seen and examined on day of discharge. Justicifation of Admission Dx: Justifications for Admission: Justification of Admission Dx: N/A EMILY MCELROY MD Oct 10, 2020 17:24
== END 2020-10-08 14:47 | DRG 394 ==
LOC: ER 19:48 → 6 SOUTH 21:46 → 4 NORTH 09-29 20:30
PROVIDERS: ADMIT Family Medicine; ATTEND Family Medicine
PROC: 0DJ08ZZ Inspection of Upper Intestinal Tract, Via Natural or Artificial Opening Endoscopic (ICD-10-PCS; 2020-10-01)
PROC: 0DH63UZ Insertion of Feeding Device into Stomach, Percutaneous Approach (ICD-10-PCS; principal; 2020-10-04 12:00)
DX: Z43.1 Encounter for attention to gastrostomy (principal); E44.0 Moderate protein-calorie malnutrition; G81.10 Spastic hemiplegia affecting unspecified side; F20.9 Schizophrenia, unspecified; F31.9 Bipolar disorder, unspecified; F41.9 Anxiety disorder, unspecified; K29.70 Gastritis, unspecified, without bleeding; R13.12 Dysphagia, oropharyngeal phase; R56.9 Unspecified convulsions; Z20.822 Contact with and (suspected) exposure to COVID-19; G47.33 Obstructive sleep apnea (adult) (pediatric); R53.81 Other malaise; Z74.01 Bed confinement status; Z87.820 Personal history of traumatic brain injury; Z88.8 Allergy status to other drugs, medicaments and biological substances; Z68.21 Body mass index [BMI] 21.0-21.9, adult
CPT/HCPCS: 36415; 43235; 74177; 74230; 80048; 80053; 83735; 84100; 85025; 87426; 96372; A4213; A4314; A4930; J0690; J1100; J1170; J1650; J1953; J2405; J2704; J3010; J3411; J3486; J3490; J7030; J7042; J7060; J7120; Q9967; U0003; U0005; 92610-GN; 92611-GN; 99285-25; G0378

== ENCOUNTER 2021-04-07 14:30 | Observation (INO) | payer OTHER ==
[~2021-04-07] VITALS: Ht 170.2 cm; Wt 70.4 kg
[~2021-04-07 14:30] MED LIST changes: +BACL20TA PEG; +FAMO20TA5 PEG; +LEVE100S8 PEG; +MIRT-34 PEG; +RISP1TAB43 PEG; +SERT100T PEG
--- NOTE | 2021-04-07 14:42 | PHYS DOC ---
Past Medical History Past Medical History: Anxiety, Bipolar, Depression, Seizure, Schizophrenia Additional Past Medical Histor: insomnia, TBI, encephlopathy,hemiplegia,contractures,TONIO, CHRONIC RESP FAIL Past Surgical History: Other Additional Past Surgical Histo: left side/shoulder/chest, FEEDING TUBE Smoking Status: Unknown if ever smoked Alcohol Use: None Drug Use: None General Adult HPI: HPI: Patient is a 45-year-old male who presents to the emergency department today for G-tube malfunction. Per EMS and nursing staff, there was drainage surrounding G-tube and was not patent today. Patient has a history of TBI, right-sided hemiplegia and has difficulty communicating communicates via sign language. Review of Systems: Review of Systems: ROS limited due to patient aphasia. Heart Score: C/O Chest Pain: N/A Risk Factors: Risk Factors: DM, Current or recent (<one month) smoker, HTN, HLP, family history of CAD, obesity. Risk Scores: Score 0 - 3: 2.5% MACE over next 6 weeks - Discharge Home Score 4 - 6: 20.3% MACE over next 6 weeks - Admit for Clinical Observation Score 7 - 10: 72.7% MACE over next 6 weeks - Early Invasive Strategies Allergies: Allergies: Allergies Coded Allergies Type Severity Reaction Last Updated Verified chlorpromazine Allergy Intermediate unknown 10/01/20 Yes divalproex sodium Allergy Intermediate unknown 10/01/20 Yes haloperidol Allergy Intermediate "passout" 10/01/20 No fluphenazine Adverse Reaction Intermediate abd pain 10/03/20 No Physical Exam: PE: Constitutional: Well developed, well nourished, no acute distress, non-toxic appearance. [] HENT: Normocephalic, atraumatic, bilateral external ears normal, oropharynx moist, no oral exudates, nose normal. [] Eyes: PERRL, EOMI, conjunctiva normal, no discharge. [] Neck: Normal range of motion, no stridor Cardiovascular:Heart rate regular rhythm, no murmur [] Lungs & Thorax: Bilateral breath sounds clear to auscultation [] Abdomen: Bowel sounds normal, soft, no tenderness, no masses, no pulsatile masses, gtube present without any redness/warmth/sweling/drainage. [] Skin: Warm, dry, no erythema, no rash. [] Back: normal ROM Extremities: No tenderness, no cyanosis, no clubbing, ROM intact, no edema. [] Neurologic: Alert, right sided hemiplagia, aphasia Psychologic: Affect normal, judgement normal, mood normal. [] Current Patient Data: Labs: Laboratory Tests Test 04/07/21 16:10 White Blood Count 10.8 x10^3/uL Red Blood Count 5.17 x10^6/uL Hemoglobin 15.1 g/dL Hematocrit 45.0 % Mean Corpuscular Volume 87 fL Mean Corpuscular Hemoglobin 29 pg Mean Corpuscular Hemoglobin Concent 34 g/dL Red Cell Distribution Width 12.9 % Platelet Count 295 x10^3/uL Neutrophils (%) (Auto) 63 % Lymphocytes (%) (Auto) 24 % Monocytes (%) (Auto) 8 % Eosinophils (%) (Auto) 4 % Basophils (%) (Auto) 1 % Neutrophils # (Auto) 6.9 x10^3/uL Lymphocytes # (Auto) 2.6 x10^3/uL Monocytes # (Auto) 0.8 x10^3/uL Eosinophils # (Auto) 0.5 x10^3/uL Basophils # (Auto) 0.1 x10^3/uL Sodium Level 137 mmol/L Potassium Level 4.4 mmol/L Chloride Level 103 mmol/L Carbon Dioxide Level 27 mmol/L Anion Gap 7 Blood Urea Nitrogen 14 mg/dL Creatinine 0.5 mg/dL Estimated GFR (Cockcroft-Gault) 219.6 BUN/Creatinine Ratio 28 Glucose Level 98 mg/dL Calcium Level 8.8 mg/dL Total Bilirubin 0.3 mg/dL Aspartate Amino Transf (AST/SGOT) 18 U/L Alanine Aminotransferase (ALT/SGPT) 26 U/L Alkaline Phosphatase 94 U/L Total Protein 7.9 g/dL Albumin 3.5 g/dL Albumin/Globulin Ratio 0.8 Current Medications Medications (Trade) Dose Ordered Sig/Moses Route PRN Reason Start Time Stop Time Status Last Admin Dose Admin Iohexol (Omnipaque 300 Mg/ml) 50 ml 1X ONCE IJ 04/07/21 15:00 04/07/21 15:01 DC Info (CONTRAST GIVEN -- Rx MONITORING) 1 each PRN DAILY PRN MC SEE COMMENTS 04/07/21 15:00 04/09/21 14:59 Iohexol (Omnipaque 300 Mg/ml) 100 ml 1X ONCE IART 1/24/22 15:30 04/07/21 15:31 DC 04/07/21 16:50 EKG: EKG: [] Radiology/Procedures: Radiology/Procedures: []PROCEDURE: CT ABD PELV W/ IV CONTRST ONLY Study: CT abdomen/pelvis with intravenous contrast Indication: Leakage from previous gastrostomy tube site. Fistula. Comparison: 09/28/2020 Technique: Helical CT imaging performed of the abdomen and pelvis after the intravenous administration of contrast. Sagittal and coronal reformats were obtained. One or more of the following individualized dose reduction techniques were utilized for this examination: 1. Automated exposure control 2. Adjustment of the mA and/or kV according to patient size 3. Use of iterative reconstruction technique. Findings: Respiratory motion in addition to streak artifact from the patient's arms partially degrades the study. Asymmetric elevation of the right hemidiaphragm. Bibasilar volume loss and a component of scarring. Somewhat flattened left lower lobe nodular focus on image 8 series 11 measures 0.6 cm transverse. Gynecomastia. No discrete liver lesion. No CT manifestations of acute cholecystitis. Unremarkable pancreas, spleen and adrenal glands. No complex renal cyst or mass. No hydronephrosis. Unremarkable bladder. Well-formed stool ball within the rectum. The rectum is measured at up to 9.4 cm AP. Normal appendix. Within normal limits course and caliber of the small bowel. Gastrostomy tube with the balloon well positioned within the gastric lumen. More inferiorly and left lateral the stomach is tethered to the undersurface of the rectus musculature. Soft tissue density extends from this location to the skin surface. No gas- filled tract at this location or definitive extension of contrast outside of the stomach into the body wall soft tissues. No fluid collection within the subcutaneous fat at this location or surrounding inflammation. No acute major vascular abnormality. No lymphadenopathy by size criteria. No free fluid or pneumoperitoneum. No acute or aggressive osseous process. Arthrosis at the hips greater on the left. Impression: 1. A portion of the gastric body is tethered to the undersurface of the rectus musculature to the left of midline at a prior gastrostomy tube site. No gas filled tract or extravasation of contrast is identified to indicate a patent fistula noting that a very tiny fistula could be occult by CT. A gastrostomy tube entering the stomach more distally is well positioned. 2. Nodular focus at the left lower lobe measuring up to 0.6 cm may be be related to atelectasis/scarring but is not fully characterized. Given size follow-up CT of the chest without contrast is recommended in 6 months. 3. Distended rectum containing well-formed stool. Electronically signed by: SAÚL MTZ MD (04/07/2021 5:26 PM) [facility] DICTATED and SIGNED BY: SAÚL MTZ MD DATE: 04/07/21 [id number] 0 Course & Med Decision Making: Course & Med Decision Making Pertinent Labs and Imaging studies reviewed. (See chart for details) Patient presents to the emergency department for drainage surrounding the G-tube site. Gtube has no drainage surrounding, Attempt by nurse to flush Gtube, gtube is patent and flushing. KUB performed to confirm gtube placement and it is in correct place. 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 New Gtube was placed in September and the old one was removed. They report that the site from the previous tube started draining today. The outer aspect of the dressing is dry and there is a small amount of rust colored drainage. CT abd/pelvis peformed that showed tethering of abdominal wall at previuos gtube site, no obvious patent fistula but a small fistula cant be ruled out per radiologist. I discussed these findings with Dr. Conley with GI at [facility] and he advised admission for patient. I discussed these findings with Dr. Cody who agreed to admit the patient under his services, ER bridge orders placed 1829. Brina Disclaimer: Brian Disclaimer: This electronic medical record was generated, in whole or in part, using a voice recognition dictation system. YASEMIN VINCENT METAL FINISH INSPECTOR Apr 07, 2021 14:42
[2021-04-07] MEDS ORDERED: CONTRAST GIVEN. MC PRN (15:00)
[2021-04-07] MEDS ORDERED: IOHEXOL 300 MG/ML 50 ML VIAL. IJ ONE (15:00)
[2021-04-07] MEDS ORDERED: IOHEXOL 300 MG/ML 100ML VIAL. IART ONE (15:30)
--- NOTE | 2021-04-07 15:30 | RAD ---
Single view of the abdomen 04/07/2021 INDICATION: Status post G-tube placement. Contrast given. Discussion: Single view abdomen demonstrates a gastrostomy tube projecting over the distal stomach. C ontrast noted within the stomach is also small bowel. No other gross abnormality is identified. IMPRESSION: Gastrostomy tube projects over the stomach, with contrast the gastric lumen and proximal small bowel Electronically signed by: Garrett Alexandra MD (04/07/2021 3:28 PM) [id number]
[2021-04-07 16:24] LABS: BASO # 0.1 x10^3/uL (0.0-0.2); BASO % 1 % (0-3); EOS # 0.5 x10^3/uL (0.0-0.7); EOS % 4 % (0-3); HEMOGLOBIN 15.1 g/dL (13.0-17.5); LYMPH # 2.6 x10^3/uL (1.0-4.8); LYMPH % 24 % (24-48); MEAN CORPUSCULAR HEMOGLOBIN 29 pg (25-35); MEAN CORPUSCULAR HGB CONC 34 g/dL (31-37); MEAN CORPUSCULAR VOLUME 87 fL (79-100); MONO # 0.8 x10^3/uL (0.0-1.1); MONO % 8 % (0-9); NEUT # 6.9 x10^3/uL (1.8-7.7); NEUT % 63 % (31-73); PLATELET COUNT 295 x10^3/uL (140-400); RED BLOOD COUNT 5.17 x10^6/uL (4.30-5.70); RED CELL DISTRIBUTION WIDTH 12.9 % (11.5-14.5); WHITE BLOOD COUNT 10.8 x10^3/uL (4.0-11.0)
[2021-04-07 16:35] LABS: CALCIUM 8.8 mg/dL (8.5-10.1); CREATININE 0.5 mg/dL (0.7-1.3); GFR 219.6; POTASSIUM 4.4 mmol/L (3.5-5.1)
[2021-04-07 16:41] LABS: ALBUMIN 3.5 g/dL (3.4-5.0); ALBUMIN/GLOBULIN RATIO 0.8 (1.0-1.7); TOTAL BILIRUBIN 0.3 mg/dL (0.2-1.0); TOTAL PROTEIN 7.9 g/dL (6.4-8.2)
--- NOTE | 2021-04-07 17:28 | RAD ---
Study: CT abdomen/pelvis with intravenous contrast Indication: Leakage from previous gastrostomy tube site. Fistula. Comparison: 09/28/2020 Technique: Helical CT imaging performed of the abdomen and pelvis after the intravenous administratio n of contrast. Sagittal and coronal reformats were obtained. One or more of the following individualized dose reduction techniques were utilized for this examinat ion: 1. Automated exposure control 2. Adjustment of the mA and/or kV according to patient size 3. Use of iterative reconstruction technique. Findings: Respiratory motion in addition to streak artifact from the patient's arms partially degrades the stud y. Asymmetric elevation of the right hemidiaphragm. Bibasilar volume loss and a component of scarring. S omewhat flattened left lower lobe nodular focus on image 8 series 11 measures 0.6 cm transverse. Gyne comastia. No discrete liver lesion. No CT manifestations of acute cholecystitis. Unremarkable pancreas, spleen and adrenal glands. No complex renal cyst or mass. No hydronephrosis. Unremarkable bladder. Well-form ed stool ball within the rectum. The rectum is measured at up to 9.4 cm AP. Normal appendix. Within n ormal limits course and caliber of the small bowel. Gastrostomy tube with the balloon well positioned within the gastric lumen. More inferiorly and left lateral the stomach is tethered to the undersurfa ce of the rectus musculature. Soft tissue density extends from this location to the skin surface. No gas-filled tract at this location or definitive extension of contrast outside of the stomach into the body wall soft tissues. No fluid collection within the subcutaneous fat at this location or surround ing inflammation. No acute major vascular abnormality. No lymphadenopathy by size criteria. No free fluid or pneumoperi toneum. No acute or aggressive osseous process. Arthrosis at the hips greater on the left. Impression: 1. A portion of the gastric body is tethered to the undersurface of the rectus musculature to the le ft of midline at a prior gastrostomy tube site. No gas filled tract or extravasation of contrast is i dentified to indicate a patent fistula noting that a very tiny fistula could be occult by CT. A gastr ostomy tube entering the stomach more distally is well positioned. 2. Nodular focus at the left lower lobe measuring up to 0.6 cm may be be related to atelectasis/scar ring but is not fully characterized. Given size follow-up CT of the chest without contrast is recomme nded in 6 months. 3. Distended rectum containing well-formed stool. Electronically signed by: SAÚL MTZ MD (04/07/2021 5:26 PM) [facility] [place]
[2021-04-07 19:30] VITALS: BP 126/85
[2021-04-07] MEDS: IV NORMAL SALINE 1000ML BAG 1,000 ML IV SCH (20:56)
[2021-04-07 23:03] VITALS: BP 103/68
[2021-04-08 03:11] VITALS: BP 115/72
[2021-04-08] MEDS: IV NORMAL SALINE 1000ML BAG 1,000 ML IV SCH ×2 (05:02→14:30)
[2021-04-08 07:00] VITALS: BP 129/80
[2021-04-08 07:57] LABS: BASO % 0 % (0-3); EOS # 0.3 x10^3/uL (0.0-0.7); EOS % 4 % (0-3); HEMATOCRIT 44.3 % (39.0-53.0); HEMOGLOBIN 14.7 g/dL (13.0-17.5); LYMPH # 2.4 x10^3/uL (1.0-4.8); LYMPH % 27 % (24-48); MEAN CORPUSCULAR HEMOGLOBIN 29 pg (25-35); MEAN CORPUSCULAR HGB CONC 33 g/dL (31-37); MEAN CORPUSCULAR VOLUME 89 fL (79-100); MONO # 0.6 x10^3/uL (0.0-1.1); MONO % 7 % (0-9); NEUT # 5.5 x10^3/uL (1.8-7.7); NEUT % 62 % (31-73); PLATELET COUNT 275 x10^3/uL (140-400); WHITE BLOOD COUNT 8.9 x10^3/uL (4.0-11.0)
[2021-04-08 08:23] LABS: ALBUMIN 3.2 g/dL (3.4-5.0); ALBUMIN/GLOBULIN RATIO 0.7 (1.0-1.7); CALCIUM 8.6 mg/dL (8.5-10.1); CREATININE 0.6 mg/dL (0.7-1.3); GFR 177.9; POTASSIUM 3.9 mmol/L (3.5-5.1); TOTAL BILIRUBIN 0.3 mg/dL (0.2-1.0)
--- NOTE | 2021-04-08 08:42 | HP ---
DATE OF SERVICE: 04/08/2021 ADMIT DATE: 04/07/2021 CHIEF COMPLAINT AND HISTORY OF PRESENT ILLNESS: This 45-year-old [facility] resident was admitted through the ER with G-tube dysfunction. He began draining fluid from an old G-tube site. GI felt necessary for admission for scoping as well as determining what was going on for sure. PAST MEDICAL HISTORY: Remarkable for traumatic brain injury and has a history of bipolar, depression, seizures, schizophrenia. He has right hemiparesis and obstructive sleep apnea. MEDICATIONS: Brought with the patient, listed on the computer and have been addressed. ALLERGIES: HE HAS MULTIPLE ALLERGIES INCLUDING DEPAKOTE, COMPAZINE, FLUPHENAZINE, HALOPERIDOL, OLANZAPINE, QUETIAPINE. SOCIAL HISTORY: Noncontributory. FAMILY HISTORY: Noncontributory. REVIEW OF SYSTEMS: Remarkable for him pointing to the G-tube site indicating that it is not functioning correctly; however, he is not in any acute distress. He is densely aphasic. PHYSICAL EXAMINATION: GENERAL: He is a well-developed, well-nourished male in no acute distress. VITAL SIGNS: Stable. He is afebrile. He is awake and alert. CHEST: Clear to auscultation. HEART: Regular rate and rhythm without S3, S4 or murmur. ABDOMEN: Soft, nontender, without hepatosplenomegaly or mass. EXTREMITIES: Without cyanosis, clubbing or edema. NEUROLOGIC: He is remarkable for the right hemiparesis. IMPRESSION: G-tube dysfunction. PLAN: GI evaluation. Hopefully, he will not need a surgical closure. ROXANNA/CAS DR: ROXANNA/bola TID: [id number]
--- NOTE | 2021-04-08 08:57 | PDOC2 ---
GI CONSULT Date of Service: DATE: 04/08/21 TIME: 08:57 Reason For Consult: gastrocutaneous fistula HPI: HPI: 45 y/o male who we've seen in the past. H/o TBI w/ spastic hemiplegia and dysphagia and multiple G tube dislodgements. Attempted PEG replacement during EGD by Dr. Mendoza in 09/2020 was unsuccessful due to scarring and G tube was replacement by Dr. Lujan during that admission. Sent to ER from [place] w/ reports of leakage related to G tube. ER reports no leakage - d/w today's nurse and she reports was told some leakage noted from previous PEG site. Not much history from patient - he is attempting to communicate w/ sign language and pointing to a chart. Spells out "GUM" and points to teeth. Denies pain. PMH: PMH: per HPI, and also per chart:anxiety, depression, bipolar, sezures, TONIO, left shoulder surgery FH: Family History: No pertinent hx ROS: Difficult to obtain. Vitals: Vitals: Vital Signs Date Time Temp Pulse Resp B/P (MAP) Pulse Ox O2 Delivery O2 Flow Rate FiO2 04/08/21 07:00 97.7 94 16 129/80 (96) 95 Room Air 97.7 Labs: Labs: Laboratory Tests Test 04/07/21 16:10 04/08/21 06:30 White Blood Count 10.8 x10^3/uL (4.0-11.0) 8.9 x10^3/uL (4.0-11.0) Red Blood Count 5.17 x10^6/uL (4.30-5.70) 5.00 x10^6/uL (4.30-5.70) Hemoglobin 15.1 g/dL (13.0-17.5) 14.7 g/dL (13.0-17.5) Hematocrit 45.0 % (39.0-53.0) 44.3 % (39.0-53.0) Mean Corpuscular Volume 87 fL (79-100) 89 fL (79-100) Mean Corpuscular Hemoglobin 29 pg (25-35) 29 pg (25-35) Mean Corpuscular Hemoglobin Concent 34 g/dL (31-37) 33 g/dL (31-37) Red Cell Distribution Width 12.9 % (11.5-14.5) 13.0 % (11.5-14.5) Platelet Count 295 x10^3/uL (140-400) 275 x10^3/uL (140-400) Neutrophils (%) (Auto) 63 % (31-73) 62 % (31-73) Lymphocytes (%) (Auto) 24 % (24-48) 27 % (24-48) Monocytes (%) (Auto) 8 % (0-9) 7 % (0-9) Eosinophils (%) (Auto) 4 % (0-3) 4 % (0-3) Basophils (%) (Auto) 1 % (0-3) 0 % (0-3) Neutrophils # (Auto) 6.9 x10^3/uL (1.8-7.7) 5.5 x10^3/uL (1.8-7.7) Lymphocytes # (Auto) 2.6 x10^3/uL (1.0-4.8) 2.4 x10^3/uL (1.0-4.8) Monocytes # (Auto) 0.8 x10^3/uL (0.0-1.1) 0.6 x10^3/uL (0.0-1.1) Eosinophils # (Auto) 0.5 x10^3/uL (0.0-0.7) 0.3 x10^3/uL (0.0-0.7) Basophils # (Auto) 0.1 x10^3/uL (0.0-0.2) 0.0 x10^3/uL (0.0-0.2) Sodium Level 137 mmol/L (136-145) 138 mmol/L (136-145) Potassium Level 4.4 mmol/L (3.5-5.1) 3.9 mmol/L (3.5-5.1) Chloride Level 103 mmol/L (98-107) 103 mmol/L (98-107) Carbon Dioxide Level 27 mmol/L (21-32) 26 mmol/L (21-32) Anion Gap 7 (6-14) 9 (6-14) Blood Urea Nitrogen 14 mg/dL (8-26) 15 mg/dL (8-26) Creatinine 0.5 mg/dL (0.7-1.3) 0.6 mg/dL (0.7-1.3) Estimated GFR (Cockcroft-Gault) 219.6 177.9 BUN/Creatinine Ratio 28 (6-20) 25 (6-20) Glucose Level 98 mg/dL (70-99) 95 mg/dL (70-99) Calcium Level 8.8 mg/dL (8.5-10.1) 8.6 mg/dL (8.5-10.1) Total Bilirubin 0.3 mg/dL (0.2-1.0) 0.3 mg/dL (0.2-1.0) Aspartate Amino Transf (AST/SGOT) 18 U/L (15-37) 17 U/L (15-37) Alanine Aminotransferase (ALT/SGPT) 26 U/L (16-63) 21 U/L (16-63) Alkaline Phosphatase 94 U/L (46-116) 89 U/L (46-116) Total Protein 7.9 g/dL (6.4-8.2) 8.0 g/dL (6.4-8.2) Albumin 3.5 g/dL (3.4-5.0) 3.2 g/dL (3.4-5.0) Albumin/Globulin Ratio 0.8 (1.0-1.7) 0.7 (1.0-1.7) Allergies: Coded Allergies: chlorpromazine (Verified Allergy, Intermediate, unknown, 10/01/20) divalproex sodium (Verified Allergy, Intermediate, unknown, 10/01/20) haloperidol (Unverified Allergy, Intermediate, "passout", 10/01/20) olanzapine (Verified Allergy, Unknown, 04/08/21) quetiapine (Verified Allergy, Unknown, 04/08/21) fluphenazine (Unverified Adverse Reaction, Intermediate, abd pain, 10/03/20) Medications: Current Medications Medications (Trade) Dose Ordered Sig/Moses Route PRN Reason Start Time Stop Time Status Last Admin Dose Admin Iohexol (Omnipaque 300 Mg/ml) 100 ml 1X ONCE IART 04/07/21 15:30 04/07/21 15:31 DC 04/07/21 16:50 Sodium Chloride 1,000 ml @ 100 mls/hr Q10H IV 04/07/21 18:30 04/08/21 18:29 04/08/21 05:02 Levetiracetam 100 ml @ 400 mls/hr Q12HR IV 04/08/21 09:00 04/08/21 08:39 Imaging: Imaging: KUB 04/07 IMPRESSION: Gastrostomy tube projects over the stomach, with contrast the gastric lumen and proximal small bowel CT A/P 04/07 Impression: 1. A portion of the gastric body is tethered to the undersurface of the rectus musculature to the left of midline at a prior gastrostomy tube site. No gas filled tract or extravasation of contrast is identified to indicate a patent fistula noting that a very tiny fistula could be occult by CT. A gastrostomy tube entering the stomach more distally is well positioned. 2. Nodular focus at the left lower lobe measuring up to 0.6 cm may be be related to atelectasis/scarring but is not fully characterized. Given size follow-up CT of the chest without contrast is recommended in 6 months. 3. Distended rectum containing well-formed stool. PE: GEN: chronically ill HEENT: gold teeth LUNGS: diminished anteriorly HEART: RRR ABD: BS+, soft, non-distended, non-tender, small amount of brownish drainage on small bandage over old PEG site, current G tube quite loose w/ dislodged sutures - unable to tighten bumper EXTREMITY: contractures SKIN: dry skin, tattoos NEURO/PSYCH: awake and alert, non-verbal, attempting to communicate w/ sign language A/P: A/P: H/o TBI and dysphagia, question of leakage from G tube and/or previous PEG site -- Reviewed w/ Dr. Mendoza - will ask surgery to comment re: possible replacement. Can give suppository for distended rectum w/ formed stool on CT. Resume acid-coat fitter. RORY HAMMONDS Apr 08, 2021 08:57
[2021-04-08] MEDS ORDERED: levETIRAcetam 500 MG/5 ML ORAL SOLUTION. PEG SCH (09:00)
--- NOTE | 2021-04-08 10:14 | NUR ---
SW following. Discussed with RN. 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 GI following. COVID test ordered due to [facility] having positive COVID cases. CELINA will continue to follow.
[2021-04-08 11:00] VITALS: BP 116/82
[2021-04-08] MEDS ORDERED: BISACODYL 10 MG SUPP.RECT. PR ONE (11:00)
--- NOTE | 2021-04-08 11:00 | PDOC2 ---
MEGHAN FRANCOIS FILM COMPOSER 04/08/21 1100: CONSULT Date of Consult Date of Consult DATE: 04/08/21 TIME: 10:45 Reason for Consult Reason for Consult: g tube site with drainage Referring Physician Referring Physician: Dr Mendoza Identification/Chief Complaint Chief Complaint G tube leakage Source Source: Caregiver, Chart review History of Present Illness Reason for Visit: Here from [place], reports say that having leakage from old g tube site when flushed g tube IN ER flushed tube and no leakage Did have CT with IV contrast, no fistula noted Past Medical History Cardiovascular: HTN CENTRAL NERVOUS SYSTEM: Seizure GI: Other (dysphagia ) Psych: Depression, Schizophrenia Past Surgical History Past Surgical History: Other (multiple g tubes) Social History ALCOHOL: none Drugs: None Current Problem List Problem List Problems Medical Problems: (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 Status: Acute Current Medications Current Medications Current Medications Iohexol (Omnipaque 300 Mg/ml) 50 ml 1X ONCE IJ ; Start 04/07/21 at 15:00; Stop 04/07/21 at 15:01; Status DC Info (CONTRAST GIVEN -- Rx MONITORING) 1 each PRN DAILY PRN MC SEE COMMENTS; Start 04/07/21 at 15:00; Stop 04/09/21 at 14:59 Iohexol (Omnipaque 300 Mg/ml) 100 ml 1X ONCE IART Last administered on 04/07/21at 16:50; Start 04/07/21 at 15:30; Stop 04/07/21 at 15:31; Status DC Sodium Chloride 1,000 ml @ 100 mls/hr Q10H IV Last administered on 04/08/21at 05:02; Start 04/07/21 at 18:30; Stop 04/08/21 at 18:29 Levetiracetam (Keppra Oral Soln) 500 mg BID PEG ; Start 04/08/21 at 09:00; Status UNV Levetiracetam 100 ml @ 400 mls/hr Q12HR IV Last administered on 04/08/21at 08:39; Start 04/08/21 at 09:00 Active Scripts Active Reported Zoloft (Sertraline Hcl) 100 Mg Tablet 1 Tab PEG DAILY Risperdal (Risperidone) 1 Mg Tablet 1 Mg PEG BID Keppra (Levetiracetam) 100 Mg/1 Ml Solution 5 Ml PEG BID 30 Days Remeron (Mirtazapine) 30 Mg Tablet 1 Tab PEG QHS Famotidine 20 Mg Tablet 20 Mg PEG DAILY Baclofen 20 Mg Tablet 20 Mg PEG QID Trazodone Hcl 50 Mg Tablet 50 Mg PO HS Allergies Allergies: Coded Allergies: chlorpromazine (Verified Allergy, Intermediate, unknown, 10/01/20) divalproex sodium (Verified Allergy, Intermediate, unknown, 10/01/20) haloperidol (Unverified Allergy, Intermediate, "passout", 10/01/20) olanzapine (Verified Allergy, Unknown, 04/08/21) quetiapine (Verified Allergy, Unknown, 04/08/21) fluphenazine (Unverified Adverse Reaction, Intermediate, abd pain, 10/03/20) ROS Review of System unable to obtain from pt Physical Exam General: No acute distress HEENT: PERRLA, Mucous membr. moist/pink Lungs: Clear to auscultation, Normal air movement Heart: Regular rate, Normal S1, Normal S2 Abdomen: Soft, Other (g tube in place, small amount of drainage from old tube site) Extremities: No clubbing, No cyanosis Neuro: Sensation intact Vitals VITALS Vital Signs Date Time Temp Pulse Resp B/P (MAP) Pulse Ox O2 Delivery O2 Flow Rate FiO2 04/08/21 07:00 97.7 94 16 129/80 (96) 95 Room Air 97.7 Labs Labs Laboratory Tests Test 04/07/21 16:10 04/08/21 06:30 04/08/21 08:55 White Blood Count 10.8 x10^3/uL (4.0-11.0) 8.9 x10^3/uL (4.0-11.0) Red Blood Count 5.17 x10^6/uL (4.30-5.70) 5.00 x10^6/uL (4.30-5.70) Hemoglobin 15.1 g/dL (13.0-17.5) 14.7 g/dL (13.0-17.5) Hematocrit 45.0 % (39.0-53.0) 44.3 % (39.0-53.0) Mean Corpuscular Volume 87 fL (79-100) 89 fL (79-100) Mean Corpuscular Hemoglobin 29 pg (25-35) 29 pg (25-35) Mean Corpuscular Hemoglobin Concent 34 g/dL (31-37) 33 g/dL (31-37) Red Cell Distribution Width 12.9 % (11.5-14.5) 13.0 % (11.5-14.5) Platelet Count 295 x10^3/uL (140-400) 275 x10^3/uL (140-400) Neutrophils (%) (Auto) 63 % (31-73) 62 % (31-73) Lymphocytes (%) (Auto) 24 % (24-48) 27 % (24-48) Monocytes (%) (Auto) 8 % (0-9) 7 % (0-9) Eosinophils (%) (Auto) 4 % (0-3) 4 % (0-3) Basophils (%) (Auto) 1 % (0-3) 0 % (0-3) Neutrophils # (Auto) 6.9 x10^3/uL (1.8-7.7) 5.5 x10^3/uL (1.8-7.7) Lymphocytes # (Auto) 2.6 x10^3/uL (1.0-4.8) 2.4 x10^3/uL (1.0-4.8) Monocytes # (Auto) 0.8 x10^3/uL (0.0-1.1) 0.6 x10^3/uL (0.0-1.1) Eosinophils # (Auto) 0.5 x10^3/uL (0.0-0.7) 0.3 x10^3/uL (0.0-0.7) Basophils # (Auto) 0.1 x10^3/uL (0.0-0.2) 0.0 x10^3/uL (0.0-0.2) Sodium Level 137 mmol/L (136-145) 138 mmol/L (136-145) Potassium Level 4.4 mmol/L (3.5-5.1) 3.9 mmol/L (3.5-5.1) Chloride Level 103 mmol/L (98-107) 103 mmol/L (98-107) Carbon Dioxide Level 27 mmol/L (21-32) 26 mmol/L (21-32) Anion Gap 7 (6-14) 9 (6-14) Blood Urea Nitrogen 14 mg/dL (8-26) 15 mg/dL (8-26) Creatinine 0.5 mg/dL (0.7-1.3) 0.6 mg/dL (0.7-1.3) Estimated GFR (Cockcroft-Gault) 219.6 177.9 BUN/Creatinine Ratio 28 (6-20) 25 (6-20) Glucose Level 98 mg/dL (70-99) 95 mg/dL (70-99) Calcium Level 8.8 mg/dL (8.5-10.1) 8.6 mg/dL (8.5-10.1) Total Bilirubin 0.3 mg/dL (0.2-1.0) 0.3 mg/dL (0.2-1.0) Aspartate Amino Transf (AST/SGOT) 18 U/L (15-37) 17 U/L (15-37) Alanine Aminotransferase (ALT/SGPT) 26 U/L (16-63) 21 U/L (16-63) Alkaline Phosphatase 94 U/L (46-116) 89 U/L (46-116) Total Protein 7.9 g/dL (6.4-8.2) 8.0 g/dL (6.4-8.2) Albumin 3.5 g/dL (3.4-5.0) 3.2 g/dL (3.4-5.0) Albumin/Globulin Ratio 0.8 (1.0-1.7) 0.7 (1.0-1.7) SARS-CoV-2 Antigen (Rapid) Negative (NEGATIVE) Laboratory Tests Test 04/07/21 16:10 04/08/21 06:30 04/08/21 08:55 White Blood Count 10.8 x10^3/uL (4.0-11.0) 8.9 x10^3/uL (4.0-11.0) Red Blood Count 5.17 x10^6/uL (4.30-5.70) 5.00 x10^6/uL (4.30-5.70) Hemoglobin 15.1 g/dL (13.0-17.5) 14.7 g/dL (13.0-17.5) Hematocrit 45.0 % (39.0-53.0) 44.3 % (39.0-53.0) Mean Corpuscular Volume 87 fL (79-100) 89 fL (79-100) Mean Corpuscular Hemoglobin 29 pg (25-35) 29 pg (25-35) Mean Corpuscular Hemoglobin Concent 34 g/dL (31-37) 33 g/dL (31-37) Red Cell Distribution Width 12.9 % (11.5-14.5) 13.0 % (11.5-14.5) Platelet Count 295 x10^3/uL (140-400) 275 x10^3/uL (140-400) Neutrophils (%) (Auto) 63 % (31-73) 62 % (31-73) Lymphocytes (%) (Auto) 24 % (24-48) 27 % (24-48) Monocytes (%) (Auto) 8 % (0-9) 7 % (0-9) Eosinophils (%) (Auto) 4 % (0-3) 4 % (0-3) Basophils (%) (Auto) 1 % (0-3) 0 % (0-3) Neutrophils # (Auto) 6.9 x10^3/uL (1.8-7.7) 5.5 x10^3/uL (1.8-7.7) Lymphocytes # (Auto) 2.6 x10^3/uL (1.0-4.8) 2.4 x10^3/uL (1.0-4.8) Monocytes # (Auto) 0.8 x10^3/uL (0.0-1.1) 0.6 x10^3/uL (0.0-1.1) Eosinophils # (Auto) 0.5 x10^3/uL (0.0-0.7) 0.3 x10^3/uL (0.0-0.7) Basophils # (Auto) 0.1 x10^3/uL (0.0-0.2) 0.0 x10^3/uL (0.0-0.2) Sodium Level 137 mmol/L (136-145) 138 mmol/L (136-145) Potassium Level 4.4 mmol/L (3.5-5.1) 3.9 mmol/L (3.5-5.1) Chloride Level 103 mmol/L (98-107) 103 mmol/L (98-107) Carbon Dioxide Level 27 mmol/L (21-32) 26 mmol/L (21-32) Anion Gap 7 (6-14) 9 (6-14) Blood Urea Nitrogen 14 mg/dL (8-26) 15 mg/dL (8-26) Creatinine 0.5 mg/dL (0.7-1.3) 0.6 mg/dL (0.7-1.3) Estimated GFR (Cockcroft-Gault) 219.6 177.9 BUN/Creatinine Ratio 28 (6-20) 25 (6-20) Glucose Level 98 mg/dL (70-99) 95 mg/dL (70-99) Calcium Level 8.8 mg/dL (8.5-10.1) 8.6 mg/dL (8.5-10.1) Total Bilirubin 0.3 mg/dL (0.2-1.0) 0.3 mg/dL (0.2-1.0) Aspartate Amino Transf (AST/SGOT) 18 U/L (15-37) 17 U/L (15-37) Alanine Aminotransferase (ALT/SGPT) 26 U/L (16-63) 21 U/L (16-63) Alkaline Phosphatase 94 U/L (46-116) 89 U/L (46-116) Total Protein 7.9 g/dL (6.4-8.2) 8.0 g/dL (6.4-8.2) Albumin 3.5 g/dL (3.4-5.0) 3.2 g/dL (3.4-5.0) Albumin/Globulin Ratio 0.8 (1.0-1.7) 0.7 (1.0-1.7) SARS-CoV-2 Antigen (Rapid) Negative (NEGATIVE) Assessment/Plan Assessment/Plan g tube drainage Ct reviewed, kub with contrast normal, would resume tf, observe bumper loose, not able to tighten much, current tube in for 6 months, could ask IR to exchange for new tube if concern ELVIRA CROOKS MD 04/08/21 1203: CONSULT Assessment/Plan Assessment/Plan Labs and CT scan reviewed shows contrast within the stomach from the G-tube without extravasation evidence of fistula. No current surgical plans agree with Lois assessment plan NICKEL,MEGHAN L FILM COMPOSER Apr 08, 2021 11:00 ELVIRA CROOKS MD Apr 08, 2021 12:03
[2021-04-08 15:00] VITALS: BP 107/72
[2021-04-08 19:00] VITALS: BP 120/82
[2021-04-08] MEDS ORDERED: FAMOTIDINE 20 MG/2 ML VIAL IVP SCH (21:00)
[2021-04-08 23:00] VITALS: BP 91/61
[2021-04-09 07:00] VITALS: BP 106/71
--- NOTE | 2021-04-09 09:26 | PDOC ---
SURGICAL PROGRESS NOTE DATE: 04/09/21 TIME: 09:24 Subjective d/w nursing, no drainage from site, multiple feeds Vital Signs Vital Signs Date Time Temp Pulse Resp B/P (MAP) Pulse Ox O2 Delivery O2 Flow Rate FiO2 04/09/21 08:00 Room Air 04/09/21 07:00 98.7 93 16 106/71 (83) 99 98.7 I&O Intake and Output 04/09/21 07:00 Intake Total 1311 ml Balance 1311 ml Intake Oral 0 ml IV Total 100 ml Tube Feeding 412 ml Other 799 ml # Voids 5 # Bowel Movements 3 General: Cooperative, No acute distress Abdomen: Soft, Other (tube in place, however bumper loose again) Labs Laboratory Tests Test 04/07/21 16:10 04/08/21 06:30 04/08/21 08:55 White Blood Count 10.8 x10^3/uL (4.0-11.0) 8.9 x10^3/uL (4.0-11.0) Red Blood Count 5.17 x10^6/uL (4.30-5.70) 5.00 x10^6/uL (4.30-5.70) Hemoglobin 15.1 g/dL (13.0-17.5) 14.7 g/dL (13.0-17.5) Hematocrit 45.0 % (39.0-53.0) 44.3 % (39.0-53.0) Mean Corpuscular Volume 87 fL (79-100) 89 fL (79-100) Mean Corpuscular Hemoglobin 29 pg (25-35) 29 pg (25-35) Mean Corpuscular Hemoglobin Concent 34 g/dL (31-37) 33 g/dL (31-37) Red Cell Distribution Width 12.9 % (11.5-14.5) 13.0 % (11.5-14.5) Platelet Count 295 x10^3/uL (140-400) 275 x10^3/uL (140-400) Neutrophils (%) (Auto) 63 % (31-73) 62 % (31-73) Lymphocytes (%) (Auto) 24 % (24-48) 27 % (24-48) Monocytes (%) (Auto) 8 % (0-9) 7 % (0-9) Eosinophils (%) (Auto) 4 % (0-3) 4 % (0-3) Basophils (%) (Auto) 1 % (0-3) 0 % (0-3) Neutrophils # (Auto) 6.9 x10^3/uL (1.8-7.7) 5.5 x10^3/uL (1.8-7.7) Lymphocytes # (Auto) 2.6 x10^3/uL (1.0-4.8) 2.4 x10^3/uL (1.0-4.8) Monocytes # (Auto) 0.8 x10^3/uL (0.0-1.1) 0.6 x10^3/uL (0.0-1.1) Eosinophils # (Auto) 0.5 x10^3/uL (0.0-0.7) 0.3 x10^3/uL (0.0-0.7) Basophils # (Auto) 0.1 x10^3/uL (0.0-0.2) 0.0 x10^3/uL (0.0-0.2) Sodium Level 137 mmol/L (136-145) 138 mmol/L (136-145) Potassium Level 4.4 mmol/L (3.5-5.1) 3.9 mmol/L (3.5-5.1) Chloride Level 103 mmol/L (98-107) 103 mmol/L (98-107) Carbon Dioxide Level 27 mmol/L (21-32) 26 mmol/L (21-32) Anion Gap 7 (6-14) 9 (6-14) Blood Urea Nitrogen 14 mg/dL (8-26) 15 mg/dL (8-26) Creatinine 0.5 mg/dL (0.7-1.3) 0.6 mg/dL (0.7-1.3) Estimated GFR (Cockcroft-Gault) 219.6 177.9 BUN/Creatinine Ratio 28 (6-20) 25 (6-20) Glucose Level 98 mg/dL (70-99) 95 mg/dL (70-99) Calcium Level 8.8 mg/dL (8.5-10.1) 8.6 mg/dL (8.5-10.1) Total Bilirubin 0.3 mg/dL (0.2-1.0) 0.3 mg/dL (0.2-1.0) Aspartate Amino Transf (AST/SGOT) 18 U/L (15-37) 17 U/L (15-37) Alanine Aminotransferase (ALT/SGPT) 26 U/L (16-63) 21 U/L (16-63) Alkaline Phosphatase 94 U/L (46-116) 89 U/L (46-116) Total Protein 7.9 g/dL (6.4-8.2) 8.0 g/dL (6.4-8.2) Albumin 3.5 g/dL (3.4-5.0) 3.2 g/dL (3.4-5.0) Albumin/Globulin Ratio 0.8 (1.0-1.7) 0.7 (1.0-1.7) SARS-CoV-2 Antigen (Rapid) Negative (NEGATIVE) Problem List Problems Medical Problems: (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
[2021-04-09] MEDS ORDERED: BACLOFEN 10 MG TABLET. PO SCH (09:35)
--- NOTE | 2021-04-09 09:46 | PDOC ---
Date of Service: DATE: 04/09/21 TIME: 09:43 Subjective: Subjective: Denies pain. Objective: Objective: D/w nurse - tolerated tube feeds - no leakage. Plans for IR to exchange tube. Vital Signs: Vital Signs Date Time Temp Pulse Resp B/P (MAP) Pulse Ox O2 Delivery O2 Flow Rate FiO2 04/09/21 08:00 Room Air 04/09/21 07:00 98.7 93 16 106/71 (83) 99 98.7 PE: GEN: chronically ill - spells "F O O D" in sign language LUNGS: CTAB HEART: RRR ABD: G tube w/ loose bumper, previous PEG site w/ minimal brownish drainage NEURO/PSYCH: says a few words, speech difficult to understand A/P: H/o TBI and dysphagia Rapid COVID negative -- G tube functioning w/o leaking - loose bumper - IR asked to exchange. Justicifation of Admission Dx: Justifications for Admission: Justification of Admission Dx: N/A RORY HAMMONDS Apr 09, 2021 09:46
[2021-04-09] MEDS ORDERED: risperiDONE 1 MG TABLET. PEG SCH (10:00)
[2021-04-09] MEDS ORDERED: SERTRALINE 50 MG TABLET. PO SCH (10:00)
[2021-04-09] MEDS ORDERED: FAMOTIDINE 20 MG TABLET. PEG SCH (10:00)
--- NOTE | 2021-04-09 10:28 | NUR ---
SW following. Discussed with RN, discharge order for return to [facility]. RN completed paper med rec. [place] arranged transport for between [id number]. RN notified.
--- NOTE | 2021-04-09 10:35 | DS ---
DATE OF DISCHARGE: 04/09/2021 PRIMARY DIAGNOSIS: G-tube dysfunction. 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 CHIEF COMPLAINT HISTORY OF PRESENT ILLNESS: This 45-year-old longterm resident admitted through the ER with suspected G-tube dysfunction. According to the longterm it began draining from an old G-tube site. GI talked to the ER while there and felt necessary to bring him and further evaluate it. SUMMARY OF STAY: The patient was admitted. Tube feedings were held. He was started with GI and Surgery consults with the final opinion being there was no fistula, no surgical or GI procedures necessary, but could consider changing tube prior to discharge and this was discussed with nursing. So, he could go back and resume tube feeds as prior. DISPOSITION: The patient is discharged back to the longterm on prehospital tube feeding. DIET AND ACTIVITY: As tolerated. DISCHARGE MEDICATIONS: Listed on the computer and have been addressed and will be his regular prehospital medications. ELISE DR: Erwin TID: [id number]
--- NOTE | 2021-04-09 14:50 | NUR ---
Report was given to Macho at [facility]. IV removed. Keppra received via IV this morning. Peg tube feedings x3 were given. [facility]
[2021-04-09] MEDS ORDERED: traZODone 50 MG TABLET. PO SCH (21:00)
[2021-04-09] MEDS ORDERED: MIRTAZAPINE 15 MG TABLET PO SCH (21:00)
== END 2021-04-09 14:50 ==
LOC: ER 14:30 → INTOOBSV 17:51 → 5 SOUTH 17:51
PROVIDERS: ADMIT Family Medicine; ATTEND Family Medicine
DX: K94.23 Gastrostomy malfunction (principal); Z20.822 Contact with and (suspected) exposure to COVID-19; F31.9 Bipolar disorder, unspecified; F20.9 Schizophrenia, unspecified; F41.9 Anxiety disorder, unspecified; G47.33 Obstructive sleep apnea (adult) (pediatric); G81.10 Spastic hemiplegia affecting unspecified side; G47.00 Insomnia, unspecified; G81.91 Hemiplegia, unspecified affecting right dominant side; I10 Essential (primary) hypertension; K31.6 Fistula of stomach and duodenum; R13.10 Dysphagia, unspecified; R13.12 Dysphagia, oropharyngeal phase; Z87.820 Personal history of traumatic brain injury; Z79.899 Other long term (current) drug therapy; Z98.890 Other specified postprocedural states
CPT/HCPCS: 36415; 74018; 74177; 80053; 85025; 87426; 96361; 96365; 96366; 96375; 99285; G0378; J3490; J7030; Q9967; U0003; U0005; G0379

== ENCOUNTER 2021-04-14 08:13 | Outpatient (CLI) | payer OTHER ==
[~2021-04-14] VITALS: Ht 170.2 cm; Wt 70.4 kg
[2021-04-14 08:40] VITALS: BP 102/84
[2021-04-14] MEDS ORDERED: IOHEXOL 240 MG/ML 50ML VIAL. ONE (11:04)
[2021-04-14] MEDS ORDERED: MIDAZOLAM HCL/PF 2 MG/2 ML VIAL. ONE (11:23)
[2021-04-14] MEDS ORDERED: fentaNYL PF VIAL 100 MCG/2 ML VIAL ONE (11:23)
[2021-04-14 11:44] VITALS: BP 110/76
[2021-04-14] MEDS ORDERED: MIDAZOLAM HCL/PF 2 MG/2 ML VIAL. IV ONE (11:45)
[2021-04-14] MEDS ORDERED: CONTRAST GIVEN. MC PRN (11:45)
[2021-04-14] MEDS ORDERED: fentaNYL PF VIAL 100 MCG/2 ML VIAL IV ONE (11:45)
[2021-04-14] MEDS ORDERED: IOHEXOL 240 MG/ML 50ML VIAL. PO ONE (11:45)
[2021-04-14 11:57] VITALS: BP 117/78
[2021-04-14 12:12] VITALS: BP 103/75
[2021-04-14 12:27] VITALS: BP 100/71
--- NOTE | 2021-04-14 12:43 | NUR ---
pt awake. tolerated procedure well. no bleeding around new G tube 20FR. dry dressing applied around g tube. pt left per medicoach via gurney. VSS. called report to Tess FRASER at pt's [facility]. [phone]
--- NOTE | 2021-04-14 15:14 | RAD ---
Fluoroscopically guided replacement, gastrostomy tube 04/14/2021 INDICATION: Poorly functioning catheter, routine placement Consent: The procedure was explained in its entirety to the patient or the patients designated repres entative by a member of the treatment team, including a discussion of the risks, benefits and commonl y accepted alternatives to the procedure, as well as the expected consequences of no therapy whatsoev er. Discussion of the risks included, but was not limited to, those that are most frequent and thos e that are rare but possibly severe or life-threatening, as well as the possibility of unforeseen com plications. Discussion: The anterior abdomen including the pre-existing tube was prepped and draped using sterile barrier technique. Contrast was administered to the catheter confirming intragastric positioning. A guidewire was advanced to the catheter into the stomach. The catheter was replaced over the wire with new 20 [place] G-tube. No immediate complications were identified. Total fluoroscopy time: 0.4 minutes Dose area product 2 Pete centimeter squared Sedation: The procedure was performed under conscious sedation including continuous cardiopulmonary m onitoring via a dedicated sedation nurse. Mfps-cy-[id number] sedation time: 11 minutes IMPRESSION: Fluoroscopically guided replacement of gastrostomy tube Electronically signed by: Garrett Alexandra MD (04/14/2021 3:12 PM) [id number]
== END 2021-04-14 12:50 | disposition home or self-care (01) ==
LOC: INTRAD 08:13
PROVIDERS: ATTEND Surgery
DX: Z43.1 Encounter for attention to gastrostomy (principal); I10 Essential (primary) hypertension; K21.9 Gastro-esophageal reflux disease without esophagitis; F32.9 Major depressive disorder, single episode, unspecified; F41.9 Anxiety disorder, unspecified; G47.30 Sleep apnea, unspecified; Z79.899 Other long term (current) drug therapy; Z98.890 Other specified postprocedural states; Z88.1 Allergy status to other antibiotic agents; Z88.8 Allergy status to other drugs, medicaments and biological substances
CPT/HCPCS: 49450; 99152; B4087; C1769; J2250; J3010; Q9966